=== PATIENT | female | born 1955 | race Caucasian/White ===

== ENCOUNTER 2018-03-11 13:51 | Emergency (ER) | payer OTHER, SELFPAY ==
[2018-03-11 13:59] VITALS: BP 163/105; PULSE 64; RESP 20; TEMP 35.5; O2SAT 96; BMI 25.8
--- NOTE | 2018-03-11 14:45 | ED_ITS ---
HPI - Abdominal Pain General Chief Complaint: Abdominal Pain Stated Complaint: abd and back pain Time Seen by Provider: 03/11/18 14:44 Source: patient Mode of arrival: ambulatory Limitations: no limitations History of Present Illness HPI narrative: Patient is a 62-year-old female here for evaluation generalized abdominal pain and back pain. Patient states she has chronic back pain but this back pain is different from her normal pain. Has had no change in bowel movements. Some nausea but no vomiting. Has have some dysuria. No fevers. Has had her gallbladder removed in the past but no other abdominal surgeries. Has been taking her home pain medication without relief. Related Data Home Medications Medication Instructions Recorded Confirmed LEVOTHYROXINE SODIUM (#LEVOTHROID #0 09/05/11 [place] [facility]) hydrocodone-acetaminophen #0 09/05/11 Previous Rx's Medication Instructions Recorded ondansetron 4 mg PO Q6-8H PRN #14 tab 03/11/18 Allergies Allergy/AdvReac Type Severity Reaction Status Date / Time ERYTHROMYCIN Allergy Unknown Uncoded 07/29/17 12:03 Review of Systems Constitutional Denies fever(s) and Denies headache(s) ENT Ears, Nose, Mouth, and Throat: Denies headache(s) Cardiovascular Denies chest pain and Denies dyspnea Respiratory Denies dyspnea Gastrointestinal Gastrointestinal: Reports abdominal pain, Denies change in bowel habits, Denies constipation, Denies diarrhea, Reports nausea and Denies vomiting Genitourinary Reports dysuria and Reports urinary urgency Musculoskeletal Denies myalgias and Denies arthralgias Integumentary/Breasts Denies lesions and Denies rash Neurologic Denies headache(s) Hematologic/Lymphatic Denies easy bleeding and Denies easy bruising FORMERLY [facility], [facility] Medical History Back pain (Acute) Hypothyroid (Acute) Surgical History History of cholecystectomy (Acute) Social History marital status: unknown Smoking Status: Former smoker Exam Initial Vital Signs Initial Vital Signs: Vital Signs Temperature 96 F L 03/11/18 13:59 Pulse Rate 64 03/11/18 13:59 Respiratory Rate 20 03/11/18 13:59 Blood Pressure 163/105 H 03/11/18 13:59 Pulse Oximetry 96 03/11/18 13:59 Const General: cooperative, healthy appearing, well developed, well groomed and No acute distress Orientation: alert, awake and oriented x3 HENMT Head: normal to inspection and normocephalic Resp Effort & Inspection: normal respiratory effort Auscultation: clear to auscultation bilaterally Cardio Rate: regular rate Rhythm: regular rhythm Pulses: radial pulses present GI Inspection: non-distended Palpation: soft, No firm, No guarding and tender Back/Spine/Pelvis Back: No CVA tenderness Thoracic/Lumbar Spine: No thoraco-lumbar spasm and No thoracic spinal tenderness Skin Lesions: no lesions Rashes: no rashes Neuro General: alert, awake and oriented x3 Extrem General: normal to inspection and capillary refill normal Psych Appearance: grossly normal and well kempt Affect: anxious affect Course Orders Ordered: ED Orders 03/11/18 15:02 CT abdomen pelvis w con Stat 03/11/18 15:15 Complete Blood Count AUTO DIFF Stat Comprehensive Metabolic Panel Stat Lipase Stat Discontinued Medications Hydromorphone HCl (Dilaudid) 1 mg IV NOW ONE Stop: 03/11/18 15:59 Last Admin: 03/11/18 16:11 Dose: 1 mg Sodium Chloride (Normal Saline 0.9%) 1,000 mls @ 1,000 mls/hr IV BOLUS ONE Stop: 03/11/18 16:00 Last Admin: 03/11/18 15:19 Dose: 1,000 mls/hr Morphine Sulfate (Morphine) 4 mg IV NOW ONE Stop: 03/11/18 15:02 Last Admin: 03/11/18 15:19 Dose: 4 mg Vital Signs - 8 hr 03/11/18 13:59 03/11/18 15:29 03/11/18 16:30 Temperature 96 F L Pulse Rate 64 60 67 Respiratory Rate 20 17 15 Blood Pressure 163/105 H Blood Pressure [Right Arm] 144/92 H 162/106 H Pulse Oximetry 96 96 97 MDM - Abdominal Pain Lab Data Attestation: I reviewed the patient's lab results. Result diagrams: 03/11/18 15:15 03/11/18 15:15 Lab Results 03/11/18 03/11/18 Range/Units 15:15 15:15 WBC 5.7 (4.5-11.0) X10^3/uL RBC 4.60 (4.0-5.2) X10^6/uL Hgb 14.1 (12.0-16.0) g/dL Hct 42.8 (36-46) % MCV 93.0 (80-100) fL MCH 30.8 (26-34) PG MCHC 33.1 (30-36) % RDW 13.3 (11.6-14.8) % Plt Count 254 (150-400) X10^3/uL Neut % (Auto) 61.1 (50-75) % Lymph % (Auto) 27.2 (25-40) % [place] % (Auto) 7.8 (3-14) % Eos % (Auto) 2.8 (2-4) % Baso % (Auto) 1.1 (0-2) % Neut # (Auto) 3500 (4112-8971) /uL Sodium 143 (137-145) mmol/L Potassium 4.1 (3.4-5.1) mmol/L Chloride 102 (98-107) mmol/L Carbon Dioxide 28 (22-32) mmol/L BUN 12 (7-17) mg/dL Creatinine 0.70 (0.52-1.04) mg/dL Estimated GFR > 60.0 (>60) mL/min BUN/Creatinine Ratio 17.1 (6-22) Glucose 97 (80-110) mg/dL Calcium 9.4 (8.4-10.2) mg/dL Total Bilirubin 0.6 (0.2-1.3) mg/dL AST 34 (14-36) IU/L ALT 29 (9-52) IU/L Alkaline Phosphatase 86 (38-126) U/L Total Protein 8.0 (6.3-8.2) g/dL Albumin 4.7 (3.5-5.0) g/dL Globulin 3.3 (1.7-4.1) g/dL Albumin/Globulin Ratio 1.4 (1.0-2.8) Lipase 113 (23-300) U/L Point of care testing: Urine Dip Bedside Urine Glucose Negative Bedside Urine Bilirubin - Negative Bedside Urine Ketone - Negative Urine Specific [place] 1.015 Bedside Urine pH 7.5 Bedside Urine Protein - Negative Bedside Urine Urobilinogen - Negative Bedside Urine Nitrite - Negative Bedside Urine Leukocytes - Negative Esterase Imaging Data CT scan - abdomen: Radiologist's impression: PROCEDURE: CT ABDOMEN PELVIS W CON INDICATIONS: Left-sided abdominal pain TECHNIQUE: After the administration of intravenous contrast, 5 mm thick sections acquired from the diaphragm to the symphysis. 5 mm coronal and sagittal reformats were acquired. For radiation dose reduction, the following was used: automated exposure control, adjustment of mA and/or kV according to patient size. COMPARISON: None. FINDINGS: Image quality: Excellent. ABDOMEN: Lung bases: Lung bases are clear. Heart size is normal. Solid organs: Liver is enlarged. There is mild steatosis Gallbladder has been removed. The common bile duct is prominent measuring 15 mm. No priors are available for comparison. A moderate diverticula is within the descending and sigmoid colon. Moderate stool is present. Pancreas enhances normally. Spleen is normal in size and enhancement. No adrenal nodules. Kidneys demonstrate normal size and enhancement, without hydronephrosis. Peritoneum and bowel: Bowel loops demonstrate normal wall thickness and caliber. No free fluid or air. Minimal fluid filled loops of small bowel. Nodes and vessels: No retroperitoneal or mesenteric adenopathy by size criteria. Aorta and inferior vena cava are normal in size. Miscellaneous: No ventral hernias. PELVIS: Genitourinary: Bladder wall thickness is normal. Miscellaneous: No inguinal hernias or adenopathy. Bones: No suspicious bony lesions. No vertebral body compression fractures. IMPRESSION: 1. Prominent colonic diverticula without associated inflammatory change. 2. Moderate stool without obstruction. 3. Minimal fluid filled loops of small bowel. This is overall nonspecific and could be related to enteritis. Dictated by: Mireya Good M.D. on 03/11/2018 at 17:20 Approved by: Mireya Good M.D. on 03/11/2018 at 17:25 MDM Narrative Medical decision making narrative: Labs unremarkable. Does not have an elevated white blood cell count. CT scan shows a nonspecific enteritis but no other surgical pathology. Urinalysis unremarkable. Low suspicion for renal stones, pyelonephritis, bowel obstruction, appendicitis, pancreatitis, AAA, or other intra-abdominal surgical pathology. No indication for antibiotics. Patient does have pain medication at home. Will send home with a prescription for Zofran to use as needed. She was given return precautions. She expressed understanding and agreement with plan. Discharge Plan Departure Patient Disposition: Home Clinical Impression: Abdominal pain, Enteritis Instructions: DI for Abdominal Pain-Adult Activity Restrictions/Additional Instructions: Continue all of your medications as directed. I would recommend you contact her primary care doctor's office to schedule a follow-up visit and to discuss the indications for referral to see Gastroenterology. You could potentially have diarrhea over the next couple days. If this happens make sure your increasing your fluid intake. Return to the emergency department for any new symptoms. Prescriptions: New ondansetron 4 mg tablet,disintegrating 4 mg PO Q6-8H PRN (Reason: nausea and vomiting) Qty: 14 RF: 0 No Action hydrocodone-acetaminophen 5 MG/325 MG tablet Qty: 0 RF: 0 LEVOTHYROXINE SODIUM (#LEVOTHROID [place]) Qty: 0 RF: 0
--- NOTE | 2018-03-11 15:02 | DI.CT.S_ITS ---
PROCEDURE: CT ABDOMEN PELVIS W CON INDICATIONS: Left-sided abdominal pain TECHNIQUE: After the administration of intravenous contrast, 5 mm thick sections acquired from the diaphragm to the symphysis. 5 mm coronal and sagittal reformats were acquired. For radiation dose reduction, the following was used: automated exposure control, adjustment of mA and/or kV according to patient size. COMPARISON: None. FINDINGS: Image quality: Excellent. ABDOMEN: Lung bases: Lung bases are clear. Heart size is normal. Solid organs: Liver is enlarged. There is mild steatosis Gallbladder has been removed. The common bile duct is prominent measuring 15 mm. No priors are available for comparison. A moderate diverticula is within the descending and sigmoid colon. Moderate stool is present. Pancreas enhances normally. Spleen is normal in size and enhancement. No adrenal nodules. Kidneys demonstrate normal size and enhancement, without hydronephrosis. Peritoneum and bowel: Bowel loops demonstrate normal wall thickness and caliber. No free fluid or air. Minimal fluid filled loops of small bowel. Nodes and vessels: No retroperitoneal or mesenteric adenopathy by size criteria. Aorta and inferior vena cava are normal in size. Miscellaneous: No ventral hernias. PELVIS: Genitourinary: Bladder wall thickness is normal. Miscellaneous: No inguinal hernias or adenopathy. Bones: No suspicious bony lesions. No vertebral body compression fractures. IMPRESSION: 1. Prominent colonic diverticula without associated inflammatory change. 2. Moderate stool without obstruction. 3. Minimal fluid filled loops of small bowel. This is overall nonspecific and could be related to enteritis. Dictated by: Mireya Good M.D. on 03/11/2018 at 17:20 Approved by: Mireya Good M.D. on 03/11/2018 at 17:25
[2018-03-11] MEDS: MORPHINE 4 MG/ML INJ IV (15:19)
[2018-03-11] MEDS: SODIUM CHLORIDE 0.9% 1,000 ML 1000 ML IV (15:19)
[2018-03-11 15:22] LABS: Add Manual Diff / Slide Review NO; Basophils Percent Auto 1.1 % (0-2); Eosinophils Percent Auto 2.8 % (2-4); Hematocrit 42.8 % (36-46); Hemoglobin 14.1 g/dL (12.0-16.0); Lymphocytes Percent Auto 27.2 % (25-40); Mean Corpuscular HGB Conc 33.1 % (30-36); Mean Corpuscular Hemoglobin 30.8 PG (26-34); Monocytes Percent Auto 7.8 % (3-14); Neutrophils Absolute Auto 3500 /uL (3000-5900); Neutrophils Percent Auto 61.1 % (50-75); Platelet Count 254 X10^3/uL (150-400); Red Cell Distribution Width 13.3 % (11.6-14.8); White Blood Cell Count 5.7 X10^3/uL (4.5-11.0)
[2018-03-11 15:29] VITALS: BP 144/92; PULSE 60; RESP 17; O2SAT 96
[2018-03-11 15:41] LABS: Alanine Aminotransferase 29 IU/L (9-52); Albumin 4.7 g/dL (3.5-5.0); Albumin Globulin Ratio 1.4 (1.0-2.8); Alkaline Phosphatase 86 U/L (38-126); Aspartate Aminotransferase 34 IU/L (14-36); BUN Creatinine Ratio 17.1 (6-22); Bilirubin Total 0.6 mg/dL (0.2-1.3); Blood Urea Nitrogen 12 mg/dL (7-17); Calcium 9.4 mg/dL (8.4-10.2); Carbon Dioxide 28 mmol/L (22-32); Chloride 102 mmol/L (98-107); Estimated Glomerular Filt Rate > 60.0 mL/min (>60); Globulin 3.3 g/dL (1.7-4.1); Glucose 97 mg/dL (80-110); HEMOLYSIS < 15 (0-50); Lipase 113 U/L (23-300); Potassium 4.1 mmol/L (3.4-5.1); Sodium 143 mmol/L (137-145)
[2018-03-11] MEDS: HYDROMORPHONE 1 MG INJ IV (16:11)
[2018-03-11 16:30] VITALS: BP 162/106; PULSE 67; RESP 15; O2SAT 97
[2018-03-11 17:56] VITALS: BP 134/75; PULSE 56; RESP 18
== END 2018-03-11 17:59 | disposition home or self-care (01) ==
PROVIDERS: Emergency Provider Emergency Medicine; PCP Physician Assistant
DX: K52.9 Noninfective gastroenteritis and colitis, unspecified (principal); R10.9 Unspecified abdominal pain
CPT/HCPCS: 36591; 74177; 80053; 81003; 83690; 85025; 96361; 96374; 96375; 99283; 99285; J1170; J2270; Q9967

== ENCOUNTER → 2018-09-10 09:10 | Outpatient (CLI) | payer OTHER, SELFPAY ==
--- NOTE | 2018-09-10 | DI.US.S_ITS ---
PROCEDURE: US PERIPH VENOUS LOW EXTREM BI INDICATIONS: ATHEROSCLEROSIS OF [place] ARTERIES OF EXTREMITIES TECHNIQUE: Real-time imaging, as well as color and pulse Doppler interrogation, were performed of the deep veins of both legs from the inguinal ligament to the popliteal fossa. COMPARISON: None. FINDINGS: Right: The common femoral, femoral and popliteal veins are normally compressible, and free of intraluminal thrombus. Color and pulse Doppler demonstrate normal phasic intravascular flow. There is normal augmentation response to distal compression maneuver. Left: The common femoral, femoral and popliteal veins are normally compressible, and free of intraluminal thrombus. Color and pulse Doppler demonstrate normal phasic intravascular flow. There is normal augmentation response to distal compression maneuver. IMPRESSION: No deep venous thrombosis in either lower extremity. Dictated by: Sonia Watson M.D. on 09/10/2018 at 11:49 Approved by: Sonia Watson M.D. on 09/10/2018 at 11:51
--- NOTE | 2018-09-10 | DI.US.S_ITS ---
PROCEDURE: US ARTERIAL DUPLEX LE BI INDICATIONS: ATHEROSCLEROSIS OF [place] ARTERIES OF EXTREMITIES TECHNIQUE: Color and pulse Doppler interrogation was performed of both lower extremity arterial systems, with image documentation. COMPARISON: None. FINDINGS: Right lower extremity: Common femoral artery: 113 cm/sec, with triphasic flow. Deep femoral artery: 95 cm/sec, with triphasic flow. Proximal superficial femoral artery: 89 cm/sec, with triphasic . Mid superficial femoral artery: 96 cm/sec, with triphasic flow. Distal superficial femoral artery: 70 cm/sec, with triphasic flow. Popliteal artery: 108 cm/sec, with triphasic flow. Posterior tibial artery: 87 cm/sec, with biphasic flow. Anterior tibial artery/dorsalis pedis: 71 cm/sec, with biphasic flow. [place]-scale imaging description: No focal arterial stenosis. Left lower extremity: Common femoral artery: 113 cm/sec, with triphasic flow. Deep femoral artery: 75 cm/sec, with triphasic flow. Proximal superficial femoral artery: 108 cm/sec, with triphasic flow. Mid superficial femoral artery: 98 cm/sec, with triphasic flow. Distal superficial femoral artery: 63 cm/sec, with triphasic flow. Popliteal artery: 81 cm/sec, with triphasic flow. Posterior tibial artery: 76 cm/sec, with biphasic flow. Anterior tibial artery/dorsalis pedis: 73 cm/sec, with biphasic flow. [place]-scale imaging description: No focal arterial stenosis. IMPRESSION: No hemodynamically significant focal arterial stenosis visualized were applied. Adequate arterial flow to both lower cavities. Dictated by: Sonia Watson M.D. on 09/10/2018 at 11:51 Approved by: Sonia Watson M.D. on 09/10/2018 at 11:55
== END ==
PROVIDERS: PCP Physician Assistant; Visit Provider Physician Assistant Medical
DX: I70.213 Atherosclerosis of native arteries of extremities with intermittent claudication, bilateral legs (principal); I10 Essential (primary) hypertension; Z87.891 Personal history of nicotine dependence
CPT/HCPCS: 93925; 93970

== ENCOUNTER → 2018-11-04 19:39 | Outpatient (CLI) | payer OTHER, SELFPAY ==
--- NOTE | 2018-11-04 19:42 | DI.MRI.S_ITS ---
PROCEDURE: MR KNEE LT WO CON INDICATIONS: LEFT KNEE PAIN TECHNIQUE: Noncontrast sagittal PD fast spin echo and T2 fast spin echo with fat saturation, sagittal 3-D FLASH with fat saturation; coronal T1 spin echo and PD fast spin echo with fat saturation, and axial PD fast spin echo with fat saturation through the knee. COMPARISON: None. FINDINGS: Image quality: Excellent. Menisci: The medial and lateral menisci demonstrate normal morphology and internal signal. The meniscal root ligaments appear intact. Cruciate ligaments: The anterior and posterior cruciate ligaments appear intact. Medial structures: The medial collateral ligament appears intact. The posterior oblique ligament, semimembranosus tendon insertions, oblique popliteal ligament, and meniscocapsular junction appear intact. Visualized portions of the pes anserinus tendons appear normal. No abnormal bursal fluid. Lateral structures: The lateral collateral ligament, long and short heads of the biceps femoris tendon appear intact. The popliteus tendon appears normal; the popliteofibular ligament appears intact. The posterosuperior and anteroinferior popliteomeniscal fascicles appear intact. The arcuate and fabellofibular ligaments appear intact, on either side of the lateral inferior geniculate artery. Iliotibial band appears normal. Anterior structures: The quadriceps and patellar tendons appear intact. Patellar alignment is normal. No femoral trochlear dysplasia or ventral trochlear prominence. No edema in the infrapatellar fat pad. Bones and cartilage: Mild to moderate tricompartmental osteoarthritis is seen more prominent in patellofemoral compartment. Chondromalacia involving apex and lateral facet of patella cartilage is seen with suggestion of small osteochondral lesions involving lateral portion of posterior patella.. No marrow edema. No fracture or dislocation. Joint space: There is small to moderate amount of joint fluid. 2.1 x 1.4 x 2.8 cm popliteal cyst is seen. Normal appearing synovial plicae are incidentally noted. IMPRESSION: 1. No evidence of focal meniscal tear. Cruciate ligaments are intact. 2. 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 3. Small to moderate amount of joint effusion a small popliteal cyst as above. No gross loose body. Dictated by: José Miguel Us M.D. on 11/05/2018 at 9:52 Approved by: José Miguel Us M.D. on 11/05/2018 at 10:02
== END ==
PROVIDERS: PCP Physician Assistant; Visit Provider Physician Assistant Medical
DX: M25.562 Pain in left knee (principal); M17.12 Unilateral primary osteoarthritis, left knee; M22.42 Chondromalacia patellae, left knee; M25.462 Effusion, left knee; M71.22 Synovial cyst of popliteal space [Baker], left knee
CPT/HCPCS: 73721

== ENCOUNTER 2018-12-17 13:47 | Emergency (ER) | payer OTHER, SELFPAY ==
[2018-12-17 14:14] VITALS: BP 182/104; PULSE 76; RESP 18; TEMP 36.8; O2SAT 95; BMI 27.1
[2018-12-17 14:54] LABS: Add Manual Diff / Slide Review NO; Basophils Absolute Auto 100 /uL (0-100); Lymphocytes Absolute Auto 1300 /uL (1100-4500); Monocytes Absolute Auto 500 /uL (0-900); Neutrophils Absolute Auto 4800 /uL (1500-7000)
[2018-12-17 15:10] LABS: Alanine Aminotransferase 11 IU/L (9-52); Albumin 4.7 g/dL (3.5-5.0); Albumin Globulin Ratio 1.2 (1.0-2.8); Alkaline Phosphatase 89 U/L (38-126); Aspartate Aminotransferase 29 IU/L (14-36); Bilirubin Total 0.4 mg/dL (0.2-1.3); Blood Urea Nitrogen 21 mg/dL (7-17); Calcium 9.6 mg/dL (8.4-10.2); Carbon Dioxide 24 mmol/L (22-32); Chloride 107 mmol/L (98-107); Creatine Kinase 124 U/L (30-135); Estimated Glomerular Filt Rate > 60.0 mL/min (>60); Globulin 3.8 g/dL (1.7-4.1); Glucose 110 mg/dL (80-110); HEMOLYSIS < 15 (0-50); Lipase 249 U/L (23-300); Potassium 4.4 mmol/L (3.4-5.1); Sodium 141 mmol/L (137-145); Total Protein 8.5 g/dL (6.3-8.2)
[2018-12-17 15:22] LABS: Troponin I < 0.012 ng/mL (0.01-0.034)
[2018-12-17 15:23] VITALS: BP 160/100; PULSE 66; RESP 17; O2SAT 98
[2018-12-17 15:26] LABS: CKMB % Relative Index 1.4 % (1.5-5.0); Creatine Kinase MB 1.71 ng/mL (<2.37)
[2018-12-17] MEDS: ACETAMINOPHEN 325 MG TABLET 975 MG PO (15:42)
[2018-12-17 15:46] LABS: Basophils Percent Auto 1.2 % (0-2); Eosinophils Absolute Auto 300 /uL (0-450); Eosinophils Percent Auto 3.6 % (2-4); Hematocrit 44.9 % (36-46); Hemoglobin 15.2 g/dL (12.0-16.0); Lymphocytes Percent Auto 18.9 % (25-40); Mean Corpuscular HGB Conc 33.8 % (30-36); Mean Corpuscular Hemoglobin 30.5 PG (26-34); Mean Corpuscular Volume 90.3 fL (80-100); Monocytes Percent Auto 7.5 % (3-14); Neutrophils Percent Auto 68.8 % (50-75); Platelet Count 296 X10^3/uL (150-400); Red Blood Cell Count 4.97 X10^6/uL (4.0-5.2); Red Cell Distribution Width 14.2 % (11.6-14.8)
[2018-12-17 15:54] LABS: Thyroid Stimulating Hormone 0.15 uIU/mL (0.47-4.68)
[2018-12-17 16:30] VITALS: BP 137/89; PULSE 69; RESP 18; O2SAT 94
--- NOTE | 2018-12-17 16:30 | ED_ITS ---
HPI - General Adult General Chief complaint: Hypertension Stated complaint: High Blood Pressure Time Seen by Provider: 12/17/18 14:45 Source: patient Mode of arrival: ambulatory Limitations: no limitations History of Present Illness HPI narrative: Patient comes emergency department complaining of headache and an adequate blood pressure control at home. She states that she was stable on amlodipine per years, but then her primary care provider moved on, and she was assigned a new provider. She states that provider changed her to clonidine, which seem to be working reasonably well, but when she went and saw a physician, rather than the PA who had been treating her, he stated that clonidine was not a good choice and took her off the clonidine. Patient states that she was then changed to lisinopril, which does not seem to be controlling her blood pressure quite as well. Patient states her systolics are in the 150s to 160s sometimes, and it is making her concerned. She states she is taking lisinopril 20 mg once a day, and has been on this for about 2 weeks. She states that she is scheduled to see Dr. Tinoco, the physician who took her off of the clonidine, on December 30. Patient denies chest pain or shortness of breath. No stroke- like symptoms. No nausea or vomiting. No other complaints at this time. Related Data Home Medications Medication Instructions Recorded Confirmed hydrocodone-acetaminophen 1 tab PO Q4H PRN #0 09/05/11 12/17/18 Calcium Lvi-Sno-Flik 2 tab PO QPM 12/17/18 12/17/18 Probiotic 1 cap PO QPM 12/17/18 12/17/18 apple cider vinegar 2,400 mg PO QPM 12/17/18 12/17/18 cyclosporine [Restasis] 1 drp OPHTHALMIC (EYE) Q12H 12/17/18 12/17/18 gabapentin 300 mg PO QPM 12/17/18 12/17/18 levothyroxine 12.5 mcg PO QPM 12/17/18 12/17/18 levothyroxine 175 mcg PO QPM 12/17/18 12/17/18 lisinopril 20 mg PO QPM 12/17/18 12/17/18 magnesium oxide 400 mg PO QPM 12/17/18 12/17/18 sertraline 100 mg PO QPM 08/30/19 08/30/19 tretinoin microspheres [Retin-A 1 applic TOPICAL DIRECTED 12/17/18 12/17/18 Micro Pump] Allergies Allergy/AdvReac Type Severity Reaction Status Date / Time erythromycin base Allergy Verified 12/17/18 14:14 Review of Systems Constitutional Constitutional: Denies chills, Denies fatigue, Denies fever(s), Denies frequent falls, Reports headache(s), Denies lethargy and Denies weakness Comments: High blood pressure Eyes Eyes: Denies change in vision, Denies eye discharge, Denies irritation and Denis es loss of vision ENT Ears, Nose, Mouth, and Throat: Denies change in voice, Denies dizziness, Reports headache(s), Denies neck pain, Denies sore throat and Denies throat swelling Cardiovascular Cardiovascular: Denies chest pain, Denies irregular heart rhythm, Denies lighth eadedness, Denies palpitations, Denies dyspnea, Denies dyspnea on exertion and Denies orthopnea Respiratory Respiratory: Denies cough, Denies dyspnea, Denies dyspnea on exertion and Denies wheezing Gastrointestinal Gastrointestinal: Denies abdominal pain, Denies change in bowel habits, Denies diarrhea, Denies nausea and Denies vomiting Genitourinary Genitourinary: Denies hematuria, Denies flank pain, Denies urinary incontinence and Denies urinary urgency Musculoskeletal Musculoskeletal: Denies back pain, Denies muscle weakness, Denies neck pain, Denies numbness and Denies tingling Integumentary/Breasts Skin/Breast: Denies pruritus, Denies erythema, Denies rash and Denies wounds Neurologic Neurologic: Denies behavioral changes, Denies confusion, Denies dizziness, Denies frequent falls, Reports headache(s), Denies loss of vision, Denies numbness, Denies tingling and Denies weakness Psychiatric Psychiatric: Denies anxiety, Denies behavioral changes, Denies confusion, Denies depression, Denies homicidal ideation and Denies suicidal ideation Endocrine Endocrine: Denies fatigue, Denies flushing and Denies palpitations Hematologic/Lymphatic Hematologic/Lymphatic: Denies easy bruising Allergic/Immunologic Allergic/Immunologic: Denies urticaria, Denies throat swelling and Denies wheezing PFSH Surgical History History of cholecystectomy (Acute) Social History (Updated 03/11/18 @ 17:03 by José Miguel Meek DO) marital status: unknown Smoking Status: Former smoker Social History marital status: unknown Smoking Status: Former smoker Exam Initial Vital Signs Initial Vital Signs: Vital Signs Temperature 98.2 F 12/17/18 14:14 Pulse Rate 76 12/17/18 14:14 Respiratory Rate 18 12/17/18 14:14 Blood Pressure 182/104 H 12/17/18 14:14 Pulse Oximetry 95 12/17/18 14:14 Const General: cooperative and well developed Nutritional Appearance: well nourished Orientation: alert, awake, oriented x3 and not confused [facility] Head: normocephalic and atraumatic Ears: external ears normal Nose: external nose normal and No nasal discharge Face and sinus: face symmetric and No dry mucous membranes Mouth: oral mucosae normal and moist mucous membranes Teeth and gingiva: dentition normal Eyes General: appearance normal, both eyes and all related structures Eyelids: eyelids normal Conjunctivae: conjunctivae normal Sclera: sclerae normal Pupils: PERRL EOM: EOM intact bilaterally Neck Neck: normal visual inspection, trachea midline, No lymphadenopathy, No midline deformity and No JVD Lymphatic: No lymphedema Chest Chest: normal inspection of the chest Resp Effort & Inspection: normal respiratory effort, able to speak in complete sentences, no respiratory distress and no use of accessory muscles Auscultation: clear to auscultation bilaterally, no rales, no rhonchi and no wheezes Cardio Rate: regular rate Rhythm: regular rhythm Heart Sounds: no click, no gallops, no murmurs and no rubs Pulses: normal peripheral pulses GI Inspection: non-distended Palpation: soft, no hepatosplenomegaly, No guarding, No pulsatile mass and No tender Auscultation: normal bowel sounds Back/Spine/Pelvis Back: No CVA tenderness Cervical Spine: cervical ROM normal and No pain with cervical ROM Thoracic/Lumbar Spine: thoracic and lumbar spine normal to inspection Skin General: no rashes or lesions noted, No jaundice and No petechiae Neuro General: alert, oriented x3, gait normal and no focal motor deficits Speech: speech normal Extrem General: full ROM, no clubbing, cyanosis or edema, no pedal edema and no calf tenderness Psych Appearance: well kempt Mental Status: mental status grossly normal Attitude: cooperative Thought Content: normal and suicidality Judgment: judgment good Course Course Course Narrative: Patient was found to have blood pressures in the 130s/80s while in the emergency department while I was examining her after presenting initially with much higher blood pressures at 182/104 and 160/100. I did discuss with the patient that she most likely needs to have her lisinopril dose increased, and that we will plan to double this from 20 to 40 mg. I also discuss ed with the patient that we will give her IV fluids and some Toradol for her headache. The patient was found to be feeling much better after fluids and Toradol. Her blood pressure remained reasonable throughout her stay in the emergency department. I have given her an extra dose of her lisinopril tonight, and she should double the lisinopril, as we discussed. Patient will follow up with her primary care physician. We have discussed the usual indications for return. Orders Ordered: ED Orders 12/17/18 14:16 Complete Blood Count AUTO DIFF Stat Comprehensive Metabolic Panel Stat Lipase Stat TSH [Thyroid Stimulating Hormone] Stat Troponin & CK Cardiac Panel Stat 12/17/18 14:38 EKG-12 Lead Stat Discontinued Medications Acetaminophen (Tylenol) 975 mg PO NOW ONE Stop: 12/17/18 15:38 Last Admin: 12/17/18 15:42 Dose: 975 mg Documented by: VALERY Sodium Chloride (Normal Saline 0.9%) 1,000 mls @ 1,000 mls/hr IV BOLUS ONE Stop: 12/17/18 17:16 Last Infusion: 12/17/18 18:20 Dose: 0 mls/hr Documented by: Admin: 12/17/18 16:51 Dose: 1,000 mls/hr Documented by: VALERY Ketorolac Tromethamine (Toradol) 30 mg IV NOW ONE Stop: 12/17/18 16:23 Last Admin: 12/17/18 16:52 Dose: 30 mg Documented by: VALERY Lisinopril (Zestril) 20 mg PO NOW ONE Stop: 12/17/18 17:24 Last Admin: 12/17/18 17:52 Dose: 20 mg Documented by: VALERY Vital Signs Vital signs: Vital Signs - 8 hr 12/17/18 14:14 12/17/18 15:23 12/17/18 16:30 Temperature 98.2 F Pulse Rate 76 66 69 Respiratory Rate 18 17 18 Blood Pressure 182/104 H Blood Pressure [Right Arm] 160/100 H 137/89 Pulse Oximetry 95 98 94 12/17/18 17:18 12/17/18 17:52 12/17/18 18:00 Temperature Pulse Rate 72 68 73 Respiratory Rate 17 18 Blood Pressure 165/90 H Blood Pressure [Right Arm] 162/92 H 154/90 H Pulse Oximetry 97 98 Medical Decision Making Medical Records Medical records reviewed: Yes I reviewed the patient's medical records. Lab Data Lab results reviewed: Yes I reviewed the patient's lab results. Result diagrams: 12/17/18 14:16 12/17/18 14:16 Labs: Lab Results 12/17/18 12/17/18 12/17/18 Range/Units 14:16 14:16 14:16 WBC 7.0 (4.5-11.0) X10^3/uL RBC 4.97 (4.0-5.2) X10^6/uL Hgb 15.2 (12.0-16.0) g/dL Hct 44.9 (36-46) % MCV 90.3 (80-100) fL MCH 30.5 (26-34) PG MCHC 33.8 (30-36) % RDW 14.2 (11.6-14.8) % Plt Count 296 (150-400) X10^3/uL Neut % (Auto) 68.8 (50-75) % Lymph % (Auto) 18.9 L (25-40) % Rusk % (Auto) 7.5 (3-14) % Eos % (Auto) 3.6 (2-4) % Baso % (Auto) 1.2 (0-2) % Neut # (Auto) 4800 (5376-8772) /uL Lymph # (Auto) 1300 (5108-7185) /uL Rusk # (Auto) 500 (0-900) /uL Eos # (Auto) 300 (0-450) /uL Baso # (Auto) 100 (0-100) /uL Sodium 141 (137-145) mmol/L Potassium 4.4 (3.4-5.1) mmol/L Chloride 107 (98-107) mmol/L Carbon Dioxide 24 (22-32) mmol/L BUN 21 H (7-17) mg/dL Creatinine 0.60 (0.52-1.04) mg/dL Estimated GFR > 60.0 (>60) mL/min BUN/Creatinine Ratio 35.0 H (6-22) Glucose 110 (80-110) mg/dL Calcium 9.6 (8.4-10.2) mg/dL Total Bilirubin 0.4 (0.2-1.3) mg/dL AST 29 (14-36) IU/L ALT 11 (9-52) IU/L Alkaline Phosphatase 89 (38-126) U/L Total Creatine Kinase 124 (30-135) U/L CK-MB (CK-2) 1.71 (<2.37) ng/mL CK-MB (CK-2) Rel Index 1.4 L (1.5-5.0) % Troponin I < 0.012 (0.01-0.034) ng/mL Total Protein 8.5 H (6.3-8.2) g/dL Albumin 4.7 (3.5-5.0) g/dL Globulin 3.8 (1.7-4.1) g/dL Albumin/Globulin Ratio 1.2 (1.0-2.8) Lipase 249 (23-300) U/L TSH 0.15 L (0.47-4.68) uIU/mL ECG Data Attestation: I personally reviewed and interpreted this ECG as follows: (See below) Interpretation: Twelve lead EKG performed December 17, 2018 at 2:31 p.m., as follows: Regular ventricular rhythm with a rate of 68 beats per minute MT interval 135 millisecond QRS duration 89 milliseconds QTC interval 427 millisecond No ectopy No significant ST T wave changes Interpretation: Normal sinus rhythm; possible left atrial enlargement; no signs of acute ischemia; borderline EKG as interpreted by ED MD. Discharge Plan Departure Patient Disposition: Home Clinical Impression: HTN (hypertension) Qualifiers: Hypertension type: essential hypertension Qualified Code(s): I10 - Essential (primary) hypertension Headache Qualifiers: Headache type: tension-type Headache chronicity pattern: acute headache Intractability: not intractable Qualified Code(s): G44.209 - Tension-type headache, unspecified, not intractable Discharge Date/Time: 12/17/18 18:26 Instructions: DI for High Blood Pressure Activity Restrictions/Additional Instructions: Please increase her lisinopril to 40 mg a day instead of 20. If he began to feel very lightheaded with this, then you may take an extra half pill instead of an extra whole pill. Please continue your plans to follow up with Dr. Santillan on December 30. Female physicians in [place] are listed below, as well. Prescriptions: No Action hydrocodone-acetaminophen 5 MG/325 MG tablet 1 tab PO Q4H PRN (Reason: pain) Qty: 0 RF: 0 levothyroxine 175 mcg tablet 175 mcg PO QPM RF: 0 lisinopril 20 mg tablet 20 mg PO QPM RF: 0 sertraline 100 mg tablet 100 mg PO QPM RF: 0 levothyroxine 25 mcg tablet 12.5 mcg PO QPM RF: 0 gabapentin 300 mg capsule 300 mg PO QPM RF: 0 Restasis 0.05 % dropperette 1 drp OPHTHALMIC (EYE) Q12H RF: 0 Retin-A Micro Pump 0.06 % gel with pump 1 applic TOPICAL DIRECTED RF: 0 magnesium oxide 400 mg magnesium Tablet 400 mg PO QPM RF: 0 Calcium Gjc-Eer-Yfog 2 tab PO QPM RF: 0 Probiotic 1 cap PO QPM RF: 0 apple cider vinegar 1,200 mg 2,400 mg PO QPM RF: 0 Referrals: Alva Strickland MD [Physician] - Freda Khan MD [Physician] - Marine Jennings [Primary Care Provider] - Lina Mckay DO [Physician] -
[2018-12-17] MEDS: SODIUM CHLORIDE 0.9% 1,000 ML 1000 ML IV (16:51)
[2018-12-17] MEDS: KETOROLAC 60 MG/2 ML VIAL 30 MG IV (16:52)
[2018-12-17 17:18] VITALS: BP 162/92; PULSE 72; RESP 17; O2SAT 97
[2018-12-17 17:52] VITALS: BP 165/90; PULSE 68
[2018-12-17] MEDS: LISINOPRIL 20 MG TABLET PO (17:52)
[2018-12-17 18:00] VITALS: BP 154/90; PULSE 73; RESP 18; O2SAT 98
== END 2018-12-17 18:26 | disposition home or self-care (01) ==
PROVIDERS: Emergency Provider Emergency Medicine; PCP Physician Assistant Medical
DX: I10 Essential (primary) hypertension (principal); G44.209 Tension-type headache, unspecified, not intractable
CPT/HCPCS: 36591; 80053; 82550; 82553; 83690; 84443; 84484; 85025; 93005; 96361; 96374; 99283; 99284; J1885

== ENCOUNTER → 2019-11-26 11:41 | Outpatient (CLI) | payer MEDICARE, OTHER, SELFPAY ==
[2019-11-27 17:05] LABS: COVID19 Sendout Not Detected (Not Detect)
== END ==
PROVIDERS: PCP Physician Assistant Medical; Visit Provider Physician Assistant
DX: Z11.59 Encounter for screening for other viral diseases (principal)
CPT/HCPCS: 87635

== ENCOUNTER 2019-11-29 06:18 | Day surgery (SDC) | payer MEDICARE, OTHER, SELFPAY ==
[2019-11-25 09:04] VITALS: BMI 24.5
[2019-11-29] VITALS (23 sets, daily range): BP systolic 120–156; BP diastolic 65–86; PULSE 60–93; RESP 12–22; TEMP 36.5–37.1; O2SAT 91–99; BMI 27.6
--- NOTE | 2019-11-29 | DI.RAD.S_ITS ---
PROCEDURE: XR LUMBAR SPINE 1V INDICATIONS: l34/l45 laminectomy TECHNIQUE: 1 views of the lumbar spine were acquired. COMPARISON: [facility] GLEN Chiu, XR LUMBAR SPINE FLEXION EXTENSION, 10/28/2019, 10:32. FINDINGS: Intraoperative localizer posterior to the L4-L5 disc. IMPRESSION: Intraoperative localizer posterior to the L4-L5 disc. Dictated by: Jessica Gonzáles MD, PhD on 11/29/2019 at 16:40 Approved by: Jessica Gonzáles MD, PhD on 11/29/2019 at 16:49
--- NOTE | 2019-11-29 07:05 | PM.PREOP ---
Pre-operative Note COVID-19 COVID-19 status: Negative Result date/Date tested (Pos, Neg/Pending): 11/26/19 Interval Note History & Physical reviewed/Exam performed by Physician: Yes Changes to H&P: No
[2019-11-29] MEDS: CEFAZOLIN 2 GM/100 ML FROZ.PIGGY IV ×3 (07:45→23:55)
[2019-11-29] MEDS: THROMBIN (RECOMBINANT) 5,000 UNIT VIAL 5000 UNIT TOP (08:12)
[2019-11-29] MEDS: SODIUM CHLORIDE 0.9% 1,000 ML, GENTAMICIN 80 MG IRR (08:12)
[2019-11-29] MEDS: BUPIVACAINE 0.25% (PF) 8 ML, fentaNYL 100 MCG INJ (08:13)
--- NOTE | 2019-11-29 08:16 | SUR.OPER ---
Prone on spine table, head in foam head support, padded chest and pelvic supports, gel pad at knees, lower legs supported by pillows; nipples, genitalia and toes free of pressure, arms secured on foam padded arm boards at <90 degrees abduction. Tape over blanket at thigh secured to table.
--- NOTE | 2019-11-29 09:21 | PM.OP.1 ---
Operative Date/Time/Diagnoses Date of procedure: 11/29/19 Time of procedure: 09:21 Pre-op diagnosis: Lumbar stenosis with radiculopathy Post-op diagnosis: same Procedure & Clinicians Procedure: L3-4, L4-5 laminectomy Use of microscope Placement of epidural catheter Same procedure as scheduled: Yes Indications: [age] year old female with intractable pain from stenosis. They had failed conservative management and requested operative intervention. Risks and benefits of surgery were discussed and appropriate consents were obtained. Surgeon: Jonel Begum Shrimp Peeling Machine Operator: Patrica Leiva Anesthesia Type: General Operative Notes Findings: None Closure Type: primary Specimen(s): none sent Estimated Blood Loss (mL): 10 Procedure in detail: Patient was brought to the operating room and intubated on the table. A time-out was performed. There were rolled over the well-padded prone position on the Bernardino table. The back was prepped and draped in standard sterile fashion. Preoperative antibiotics were given. Using fluoroscopy, a 4 cm incision was made to the left of the midline at the L4-5 level. We used Bovie to come down to and split the fascia. We then used the [employer] MaXcess dilators with fluoroscopy and then opened our retractors. The soft tissue was cleared off with Bovie, a marker was placed, an x-ray was taken to confirm positioning. We then brought in the microscope. A combination of high-speed bur and Kerrison were used to perform a laminectomy at L4-5. We carefully depressed the dura and reach across the other side to decompress the full central canal. The neural foramen were cleared out. We then moved the retractor up to the L3-4 level. We cleared off the soft tissue. The performed a laminectomy at L3-4. Again we carefully depressed the dura to clear out the central canal. The neural foramina cleared out. In the end a ball probe could be run cephalad and caudally and out to the foramen everything was open. The wound was copiously irrigated. An epidural catheter was filled with 100 mcg of fentanyl and 8 mL of 0.25% Marcaine. The dura was carefully depressed under the laminotomy site and the catheter was advanced 6 cm cephalad. The retractor was removed and the fascia was closed. The epidural catheter was then injected without resistance and removed. Superficial and skin were closed. Sterile dressing was placed. The patient was then rolled over, transferred to the stretcher, and brought to recovery room without complications. Complications: none Post-operative Condition: stable Disposition: PACU Plan for aftercare: Overnight admission. Up with physical therapy.
[2019-11-29] MEDS: fentaNYL 100 MCG/2 ML INJ IV (10:05)
[2019-11-29] MEDS: ONDANSETRON 4 MG/2 ML INJ IV ×2 (10:11→11:17)
[2019-11-29] MEDS: OXYCODONE IR 5 MG TABLET 10 MG PO (10:12)
--- NOTE | 2019-11-29 11:07 | SUR.PHASEI ---
Patient c/o chest heaviness and difficult to breath. EKG and cardiac panel ordered per Dr Seymour.
[2019-11-29 11:16] LABS: Creatine Kinase 321 U/L (30-135)
--- NOTE | 2019-11-29 11:20 | SUR.PHASEI ---
Gave patient 2 dose of IV antiemetic for c/o nausea.
[2019-11-29 11:29] LABS: Troponin I < 0.012 ng/mL (0.01-0.034)
[2019-11-29 11:32] LABS: CKMB % Relative Index 1.9 % (1.5-5.0); Creatine Kinase MB 6.05 ng/mL (<2.37)
--- NOTE | 2019-11-29 11:51 | SUR.PHASEI ---
Patient states pain and nausea has gotten better.
--- NOTE | 2019-11-29 12:06 | SUR.PHASEI ---
Received new order for metoclopramide and Ativan iv for cont c/o nausea.
[2019-11-29] MEDS: METOCLOPRAMIDE 10 MG/2 ML INJ IV (12:17)
--- NOTE | 2019-11-29 12:50 | SUR.PHASEI ---
Report given and patient transferred to floor. Pt rates pain and nausea at 3 and is tolerable. Notified nurse Dr Seymour requesting tele.
[2019-11-29] MEDS: LACTATED RINGERS 1,000 ML 125 ML IV ×2 (12:58→21:17)
--- NOTE | 2019-11-29 13:32 | PC.NURSE ---
Patient drowsy but easily arousable. Rates back pain 3/10. Denies chesp pain and pressure at this time, no nausea. Dressing to back CDI, CMS+, scd's on and tele placed. Patient oriented to room and call light. Bed alarm on.
--- NOTE | 2019-11-29 15:37 | PM.PNPO.1 ---
Subjective Subjective Date Patient Seen: 11/29/19 Time Patient Seen: 15:37 Interval history: She is having appropriate postoperative pain across her back. Legs are good. No more chest pain like she had had in the recovery room. No shortness of breath or difficulty breathing. Exam Vital Signs (past 8 hours): - 11/29/19 09:40 11/29/19 09:49 11/29/19 09:59 Temperature 97.7 F Pulse Rate 82 82 79 Respiratory Rate 17 16 17 Blood Pressure 126/69 125/70 137/84 Pulse Oximetry 98 98 94 11/29/19 10:09 11/29/19 10:19 11/29/19 10:39 Temperature Pulse Rate 80 79 85 Respiratory Rate 17 14 13 Blood Pressure 135/82 144/77 H 136/82 Pulse Oximetry 96 95 95 11/29/19 10:40 11/29/19 10:49 11/29/19 10:54 Temperature Pulse Rate 84 83 80 Respiratory Rate 19 12 16 Blood Pressure 156/75 H 151/79 H Pulse Oximetry 91 91 91 11/29/19 10:59 11/29/19 11:09 11/29/19 11:19 Temperature 98.5 F Pulse Rate 81 82 82 Respiratory Rate 13 22 17 Blood Pressure 145/77 H 151/75 H 149/77 H Pulse Oximetry 94 94 96 11/29/19 11:29 11/29/19 11:39 11/29/19 11:59 Temperature Pulse Rate 93 H 91 H 79 Respiratory Rate 14 20 18 Blood Pressure 132/67 132/67 143/65 H Pulse Oximetry 98 98 94 11/29/19 12:29 11/29/19 12:40 11/29/19 13:10 Temperature 98.5 F 98.6 F Pulse Rate 80 80 74 Respiratory Rate 12 15 15 Blood Pressure 130/70 132/74 123/72 Pulse Oximetry 94 96 94 11/29/19 13:57 Temperature 98.8 F Pulse Rate 71 Respiratory Rate 16 Blood Pressure 121/71 Pulse Oximetry 93 Oxygen Delivery Method Nasal Cannula Oxygen Flow Rate 2 Const Orientation: alert and oriented x3 Back/Spine/Pelvis Other: 5/5 bilateral lower extremities Objective Labs Labs: Laboratory Results - last 24 hr 11/29/19 11:00 Total Creatine Kinase 321 H CK-MB (CK-2) 6.05 H CK-MB (CK-2) Rel Index 1.9 Troponin I < 0.012 Assessment & Plan Post-op Postoperative Procedures: Procedures Operation Date: 11/29/19 07:45 Actual Procedures Side Surgeon p L34, L45 Laminectomies Jonel Begum MD Her recovery room me kg was normal and her troponin is normal. We will check 1 more set of enzymes to make sure this is fine. Quality VTE Deep Vein Thrombosis/Pulmonary Embolism Present on Admission: Yes
[2019-11-29] MEDS: HYDROCODONE/ACET 5/325 TABLET 2 TAB PO ×3 (15:40→23:55)
[2019-11-29] MEDS: HYDROMORPHONE 0.5 MG INJ IV (15:55)
[2019-11-29] MEDS: LACTOBACILLUS ACIDOPHILUS TABLET 1 EACH PO (16:50)
[2019-11-29] MEDS: GABAPENTIN 600 MG TABLET 1200 MG PO (16:50)
[2019-11-29] MEDS: MAGNESIUM OXIDE 400 MG TABLET PO (16:50)
[2019-11-29] MEDS: SENNOSIDES 8.6 MG TABLET 17.2 MG PO (20:04)
[2019-11-29] MEDS: lisinopriL 20 MG TABLET 40 MG PO (20:05)
[2019-11-29] MEDS: DOCUSATE 100 MG CAPSULE PO (20:06)
[2019-11-29] MEDS: AMLODIPINE 5 MG TABLET PO (20:06)
[2019-11-29] MEDS: SODIUM CHLORIDE 0.9% FLUSH 10 ML IV (20:07)
[2019-11-29] MEDS: LEVOTHYROXINE 88 MCG TABLET 176 MCG PO (20:14)
[2019-11-29 20:19] LABS: Creatine Kinase 439 U/L (30-135)
[2019-11-29 20:32] LABS: Troponin I < 0.012 ng/mL (0.01-0.034)
[2019-11-29 20:35] LABS: CKMB % Relative Index 1.5 % (1.5-5.0); Creatine Kinase MB 6.56 ng/mL (<2.37)
[2019-11-30] VITALS (8 sets, daily range): BP systolic 94–119; BP diastolic 56–67; PULSE 54–64; RESP 14–18; TEMP 36.2–36.8; O2SAT 93–97
[2019-11-30] MEDS: HYDROCODONE/ACET 5/325 TABLET 2 TAB PO ×5 (03:52→21:40)
[2019-11-30 06:00] LABS: Hematocrit 32.9 % (36-46); Hemoglobin 11.2 g/dL (12.0-16.0)
--- NOTE | 2019-11-30 07:59 | PM.PNPO.1 ---
Subjective Subjective Date Patient Seen: 11/30/19 Time Patient Seen: 07:59 Interval history: She is doing well. No chest pain. Pain is under good control. She has been up and walking to the bathroom with assistance. Exam Vital Signs (past 8 hours): - 11/30/19 00:14 11/30/19 04:00 Temperature 97.9 F 97.2 F L Pulse Rate 64 62 Respiratory Rate 18 18 Blood Pressure 119/67 113/67 Pulse Oximetry 97 97 Oxygen Delivery Method Nasal Cannula Oxygen Flow Rate 0 Const Orientation: alert and oriented x3 Back/Spine/Pelvis Other: CDI. 5/5 motor both lower extremities Objective Labs Result Diagrams: 11/30/19 05:36 Labs: Laboratory Results - last 24 hr 11/29/19 11/29/19 11/30/19 11:00 19:56 05:36 Hgb 11.2 L Hct 32.9 L Total Creatine Kinase 321 H 439 H CK-MB (CK-2) 6.05 H 6.56 H CK-MB (CK-2) Rel Index 1.9 1.5 Troponin I < 0.012 < 0.012 Assessment & Plan Post-op Postoperative Procedures: Procedures Operation Date: 11/29/19 07:45 Actual Procedures Side Surgeon p L34, L45 Laminectomies Jonel Begum MD she is doing well. Mobilize with therapy. If she is doing well, possible discharge later on today. Quality VTE Deep Vein Thrombosis/Pulmonary Embolism Present on Admission: Yes
[2019-11-30] MEDS: ASPIRIN 81 MG CHEW TAB PO (08:32)
[2019-11-30] MEDS: DOCUSATE 100 MG CAPSULE PO ×2 (08:32→21:41)
[2019-11-30] MEDS: SERTRALINE 50 MG TABLET 100 MG PO (08:32)
[2019-11-30] MEDS: METFORMIN HCL 500 MG TABLET PO (08:33)
[2019-11-30] MEDS: SODIUM CHLORIDE 0.9% FLUSH 10 ML IV ×2 (08:34→21:42)
--- NOTE | 2019-11-30 09:19 | OT.IP.EVAL ---
Current Diagnoses Spinal stenosis, lumbar region with neurogenic claudication (11/29/19) Surgery Performed Operation Date: 11/29/19 07:45 Actual Procedures p L34, L45 Laminectomies - Jonel Begum MD Past Medical History (Last Updated 11/25/19 @ 13:42 by Christina Gates, RN) Anxiety (Acute) Arthritis (Acute) Back pain (Acute) Close exposure to COVID-19 virus (Acute) Hypothyroid (Acute) Non-pressure ulcer of lower extremity (Acute 2018) Peripheral neuropathy (Acute) Poor balance (Acute) Pre-diabetes (Acute) Sciatica (Acute) Spinal stenosis (Acute) Surgical History (Last Updated 11/25/19 @ 09:11 by Christina Gates RN) History of cholecystectomy (Acute) Hx of lumbar discectomy (Acute) Occupational Therapy Inpatient Evaluation/Re-Eval M1 PT/OT-IP Prior Functional Status Start: 11/30/19 10:50 Freq: NEEDED Status: Active Protocol: Document 11/30/19 08:28 [facility] (Rec: 11/30/19 11:15 [facility] [id number]) Medical Review Prior Functional Status Communication Independent. Mobility and Gait Pt states independent with no devices. Activities of Daily Living and IADL's Pt states needing increased time for all Adl ,IADl needs due to pain in her back. Prior Functional Level (Other details) Pt states has multiple history of falls. her last fall was two weeks ago. Social History Household Members spouse Living Arrangements House Number of Floors (Floors) Two Floors Number of Stairs To Enter/Railing? 4 platform steps from the outside and then 3 steps with bilateral rails to the porch and then through the front door and 7-8 steps up to the main living area with left rail going up. Pt has a split level house and states will not has to go downstairs unless decides to use the walk in shower. Pt's sleeps in a different room and suggested on use of cell phone or whistle so pt able to call for assist if needed at night. Home Environment High Toilet,Tub/Shower Doors Home Equipment Straight Cane,Long Handled Sponge Additional Social History Comment Pt states looking into borrowing a FWW, BSC , and possible shower chair from a neighbor. M2 OT-IP Current Condition Start: 11/30/19 10:50 Freq: Status: Active Protocol: Document 11/30/19 08:28 [facility] (Rec: 11/30/19 11:15 [facility] [id number]) Occupational Therapy Current Condition Current Condition Evaluation Date 11/30/19 Treatment Diagnosis Lumbar stenosis with radiculopathy s/p L3-4, l4-5 laminectomy Diagnosis Onset Date 11/29/19 Post Operative Precautions Lumbar Precautions Log Roll,No Twisting,Limit Bending,Lifting Restriction of 10 lbs,Gait Belt above Incisional Area M3 OT- IP Subjective and Pain Start: 11/30/19 10:50 Freq: Status: Active Protocol: Document 11/30/19 08:28 [facility] (Rec: 11/30/19 11:15 [facility] [id number]) OT- Subjective Occupational Therapy Visit Type Type Initial Evaluation Visit Start Time 08: Visit Stop Time 09:19 Total Visit Minutes 51 Occupational Therapy Visit Comments Patient Comments Pt in the recliner and agreed to do OT eval and came in for part of the session. Patient/Caregiver Goals To go home. OT Pain Assessment Pain When Pain Assessed During Mobility Pain Present Pain Present Pain Reported Location Medial Back Intensity 6 Scale Used Numeric (0 - 10) M4 OT- IP ADL's Start: 11/30/19 10:50 Freq: Status: Active Protocol: Document 11/30/19 08:28 [facility] (Rec: 11/30/19 11:15 [facility] [id number]) OT [id number] General Evaluation Self-Feeding Ability Independent OT ADL-Grooming Comments OT Grooming Comments Educated when standing to spit into a cup or hinge at her hips to lean over the sink to spit to best follow her back precautions. OT ADL-Dressing General Eval Lower Body Dressing Ability Maximum Assistance Areas Needing Assistance Socks Comments OT Dressing Comments Pt states may have a sap ppm consultant at home. to assist pt as needed at home. Able to educated and practice LB dressing of socks with socks aid and sap ppm consultant. Pt would benefit from sap ppm consultant, sock aid , and long handled shoe horn. OT ADL-Toileting Comments OT Toileting Comments Able to go over wiping with pt and determined best to stand to wipe and have there to assist as needed. In addition suggested wearing pad may be helpful at night and also use of wet wipes for hygiene needs. At this time pt would need her to assist for all Adl needs. OT ADL-Bathing Comments OT Bathing Comments Not at this time. Pt looking into either getting shower black or tub bench. M5 OT- IP IADL's Start: 11/30/19 10:50 Freq: Status: Active Protocol: Document 11/30/19 08:28 [facility] (Rec: 11/30/19 11:15 [facility] [id number]) OT-Instrumental Activities of Daily Living Home Safety Awareness Awareness of Need for Assistance at Home Good Awareness Medication Management Medication Management Comments Pt's aware that he will provide at least supervision for needs and assist as needed for now. Money Management Money Management Comments Pt's aware that he will provide at least supervision for needs and assist as needed for now. Meal Preparation Meal Preparation Caregiver Provides Assist Atomic Physics Teacher Atomic Physics Teacher Caregiver Provides Assist M6 OT- IP Functional Cognition Start: 11/30/19 10:50 Freq: Status: Active Protocol: Document 11/30/19 08:28 [facility] (Rec: 11/30/19 11:15 [facility] [id number]) Cognitive Factors Limiting Selfcare Function Cognitive Ability Level of Alertness Alert Attention Span Ability Capable of Focused Attention, Capable of Sustained Attention Ability to Follow Commands Able to Follow One Step Commands Memory Description No Deficits Noted Safety Awareness Decreased Ability to Apply Precautions Cognitive Comments Cognitive Assessment Comments Pt needing reminders to incorporate back precautions during mobility and Adl needs. OT- Vision and Hearing OT- Hearing Assessment OT- Hearing Assessment WFL OT- Vision Assessment Visual Acuity Glasses All The Time M7 OT- IP Mobility and Balance Start: 11/30/19 10:50 Freq: Status: Active Protocol: Document 11/30/19 08:28 [facility] (Rec: 11/30/19 11:15 [facility] [id number]) OT- Bed Mobility Assessment Rolling Level of Assistance Minimal Assistance Supine to Sit Supine to Sit Assist Moderate Assistance Sit to Supine Sit to Supine Assist Moderate Assistance Scooting Scooting to Edge of Bed Minimal Assistance OT-Transfer Assessment Sit to and From Stand Sit to and from Stand Minimal Assistance,Moderate Assistance Transfers Transfer Ability Minimal Assistance,Moderate Assistance Technique Transfer Destination Bed,Chair,Toilet Transfer Technique Stand Step Pivot Devices Transfer Assistive Devices Gait Belt,Front Wheeled Walker Comments Mobility Comments Pt needing MODa to stand and needing vc to hinge at her hips and push up from the armrest to stand. Pt noted at times crosses her feet while walking with FWW and educated to try to keep her feet apart more. Suggested to pt to wear shoes would be safer especially due to history of fall and that pt states has neuropathy in her feet. OT- Balance Assessment Sitting Balance and Reactions Static Sitting Balance Ability Good Dynamic Sitting Balance Ability Fair M9 OT- IP Assessment and Plan Start: 11/30/19 10:50 Freq: Status: Active Protocol: Document 11/30/19 08:28 [facility] (Rec: 11/30/19 11:15 [facility] [id number]) OT Summary Assessment and Plan Potential Rehabilitation Potential Good Analytic Complexity at Evaluation Low Summary OT Impairments Pain,Balance,Functional Mobility,Grooming,Dressing, Toileting,Bathing,Toilet Transfers,Shower Transfers, Activity Tolerance Progress Towards Goals Progressing Toward Goals Assessment Summary Pt low complexity and s/p L34- , l4-5 laminectomy and main barriers are pain, multiple steps in the house and has history of multiple fall -last one in the past 2 weeks. Pt has a supportive who has has initiating being able to assist pt for bed mobility, gait belt management, and toileting needs. Pending steps and completion of caregiver training suggest pt go home with to assist her. Goals Grooming Goal Independent Dressing Goal Independent Toileting Goal Independent Bathing Goal Independent Toilet Transfer Goal Independent Shower Transfer Goal Independent Patient/Caregiver Education Goal Demonstrate Post-Op Precautions,Caregiver Independent Assisting Patient Days to Meet Goals 5 Frequency of Treatment Frequency Of Treatment Once a Day Treatment Plan OT Treatment Plan ADL Training,Functional Mobility,Patient/Family Education,Discharge Planning Other Treatment Recommendations and Next caregiver training, shower Treatment Focus Discharge Recommendations OT Discharge Recommendations Home with Assistance Home Equipment Needs BSC, FWW, shower chair versus tub bench, LB dressing equipment Transportation Needs at Discharge Private Vehicle
--- NOTE | 2019-11-30 09:59 | PT.IIE ---
Current Diagnoses Spinal stenosis, lumbar region with neurogenic claudication (11/29/19) Surgery Performed Operation Date: 11/29/19 07:45 Actual Procedures p L34, L45 Laminectomies - Jonel Begum MD Surgical History (Last Updated 11/25/19 @ 09:11 by Christina Gates, RN) History of cholecystectomy (Acute) Hx of lumbar discectomy (Acute) Medical History (Last Updated 11/25/19 @ 13:42 by Christina Gates RN) Anxiety (Acute) Arthritis (Acute) Back pain (Acute) Close exposure to COVID-19 virus (Acute) Hypothyroid (Acute) Non-pressure ulcer of lower extremity (Acute 2018) Peripheral neuropathy (Acute) Poor balance (Acute) Pre-diabetes (Acute) Sciatica (Acute) Spinal stenosis (Acute) Physical Therapy Inpatient Evaluation/Re-Eval M1 PT/OT-IP Prior Functional Status Start: 11/30/19 10:50 Freq: NEEDED Status: Active Protocol: Document 11/30/19 08:28 [facility] (Rec: 11/30/19 11:15 [facility] [id number]) Medical Review Prior Functional Status Communication Indenpendent. Mobility and Gait Pt statwes independent with no devices. Activities of Daily Living and IADL's Pt states needing increased time for all Adl ,IADl needs due to shreyas in her back. Prior Functional Level (Other details) Pt states has multiple history of falls. her last fall was two weeks ago. Social History Household Members spouse Living Arrangements House Number of Floors (Floors) Two Floors Number of Stairs To Enter/Railing? 4 platform steps from the outside and then 3 steps with bilateral rails to the porch and then through the front door and 7-8 steps up to the main living area with left rail going up. Home Environment High Toilet,Tub/Shower Doors Home Equipment Straight Cane,Long Handled Sponge Additional Social History Comment Pt states looking into borrowing a FWW, BSC , and possible shower chair from a neighbor. M1 PT/OT-IP Prior Functional Status Start: 11/30/19 12:44 Freq: NEEDED Status: Active Protocol: Document 11/30/19 09:59 [facility] (Rec: 11/30/19 12:49 [facility] [id number]) Medical Review Prior Functional Status Medical History Reviewed Yes Communication able to make needs known Mobility and Gait pt stated that she is independent with all mobilities and ambulates without AD but occasionally uses 1or 2 walking sticks for outdoor ambulation Activities of Daily Living and IADL's stated that she can manage by herself but is difficulty to do Prior Functional Level (Other details) per OT's note:Pt states has multiple history of falls. her last fall was two weeks ago. Social History Household Members spouse Living Arrangements House Number of Floors (Floors) Two Floors Number of Stairs To Enter/Railing? has 4 platform steps without rails + 3 steps with bilateral rails to enter the house from the front door has 7 steps with L rail ascending to get to kitchen/ bedroom level Home Environment High Toilet,Tub/Shower Doors Home Equipment Straight Cane,Long Handled Sponge Additional Social History Comment Pt states looking into borrowing a FWW, BSC , and possible shower chair from a neighbor. M2 PT-IP Current Condition Start: 11/30/19 12:44 Freq: NEEDED Status: Active Protocol: Document 11/30/19 09:59 [facility] (Rec: 11/30/19 12:49 [facility] [id number]) Physical Therapy Current Condition Current Condition Evaluation Date 11/30/19 Treatment Diagnosis s/p L3-4, L4-5 lami; difficulty in walking Onset Date 11/29/19 Precautions Lumbar Precautions Log Roll,No Twisting,Limit Bending,Lifting Restriction of 10 lbs,Gait Belt above Incisional Area M3 PT-IP Subjective Start: 11/30/19 12:44 Freq: NEEDED Status: Active Protocol: Document 11/30/19 09:59 [facility] (Rec: 11/30/19 12:49 [facility] [id number]) Subjective Physical Therapy Visit Type Type Initial Evaluation Visit Start Time 09:59 Visit Stop Time 10:52 Total Visit Minutes 53 Number of MEDICAL SOCIOLOGIST Visits 0 Physical Therapy Visit Comments Patient Comments pt is agreeable to do PT Therapy Pain Assessment Pain When Pain Assessed At Rest Pain Present Pain Present Pain Reported Location Medial Back Intensity 5 Scale Used Numeric (0 - 10) Pain Management Techniques Apply Cold,Modification of Treatment,Re-positioning, Timing of Activity with Medications M4 PT-IP Mobility and Gait Start: 11/30/19 12:44 Freq: NEEDED Status: Active Protocol: Document 11/30/19 09:59 [facility] (Rec: 11/30/19 13:16 [facility] [id number]) PT-Bed Mobility Assessment Rolling Type of Rolling Log Rolling Level of Assist Minimal Assistance Supine to Sit Supine to Sit Minimal Assistance,1 Person Assistance Sit to Supine Sit to Supine Standby Assistance PT-Transfer Assessment Sit to and From Stand Sit to and from Stand Moderate Assistance,1 Person Assistance,Use of Upper Extremities Equipment Transfer Assistive Device Gait Belt,Front Wheeled Walker Orthotic/Prosthetic Devices or Brace: No Transfers Transfer Destination Chair Transfer Technique Stand Step Pivot Transfer Ability Level of Assist Moderate Assistance,1 Person Assistance,2 Person Assistance ,Use of Upper Extremities Comments Mobility Comments BP supine: 95/69. reviewed back precautions and log roll bed mobility. pt completed supine to sit min A and SBA for sit to supine. pt educated on techniques and completed supine<>sit requiring SBA and cues. BP sitting on EOB: 104/64. completed sit to stand mod A and cues. pt c/o feeling oozy and difficulty in following directions. instructed pt to sit back down. BP checked again: 101/65. NAC came in to assist. completed sit to stand mod A x 1-2 and max cues . completed step transfer using FWW mod A and cues. BP checked: 112/66.. pt ambulated in room using FWW mod A ~ 35 ft. (+) R foot drop. requiring cues for RLE control. pt agreed to stay up on chair. positioned pt on chair. BP checked 118/65. call light and table within reach. set up caregiver training with spouse and agreed on ~ 130 pm today. informed nurse regarding pt's mobility and c/o feeling oozy. Gait Assessment Gait Gait Assistance Required: Moderate Assistance Distance (Feet) 35 Able to Maintain Weight Bearing Status Yes During Gait Assistive Devices Assistive Device Gait Belt,Front Wheeled Walker Orthotic/Prosthetic Devices or Brace: No Gait Deviations General Gait Pattern Antalgic,Decreased Stride Length,Decreased Feet Clearance Factors Limiting Gait Function Factors Limiting Gait Function Decreased Activity Tolerance, Decreased Sensation,Decreased Strength,Difficulty Following Directions,Limited Range of Motion,Pain,Poor Balance,Poor Safety Awareness Comments Gait Comments pls refer to mobility section for details PT-Balance Assessment Sitting Balance and Reactions Static Sitting Balance Ability Good Dynamic Sitting Balance Ability Good Standing Balance and Reactions Static Standing Balance Ability Fair Dynamic Standing Balance Ability Poor Device Used FWW M5 PT-IP Objective Assessments Start: 11/30/19 12:44 Freq: NEEDED Status: Active Protocol: Document 11/30/19 09:59 [facility] (Rec: 11/30/19 13:16 [facility] [id number]) Orientation Orientation/Cognition Level of Alertness Alert Orientation Name,Place,Situation Safety Awareness Decreased Safety Awareness Memory Description Short Term Impaired Gross Range of Motion Lower Extremity ROM Assessment Within Functional Limits Strength Lower Extremity Strength Assessment Right Impaired Hip 3+/5 Knee 3+/5 Ankle 2-/5 Sensation Assessment Sensation Light Touch Impaired Proprioception (Position) Impaired Sensation Description Numbness Comments Sensation Comments stated that she she has neuropathy on BLE from the knees down to B feet but prior to surgery, has more numbness on L thigh area M6 PT-IP Treatment Start: 11/30/19 12:44 Freq: NEEDED Status: Active Protocol: Document 11/30/19 09:59 [facility] (Rec: 11/30/19 13:16 [facility] [id number]) Physical Therapy Treatment Education Education Provided Precautions,Weight Bearing Status,Safety M7 PT-IP Assessment and Plan Start: 11/30/19 12:44 Freq: NEEDED Status: Active Protocol: Document 11/30/19 09:59 [facility] (Rec: 11/30/19 13:16 [facility] [id number]) PT Summary Assessment and Plan Potential Rehabilitation Potential Good Status of Condition at Evaluation Evolving Summary Impairments Pain,ROM,Strength,Balance, Coordination,Sensation,Tone, Cognition,Bed Mobility, Transfers,Gait,Activity Tolerance Assessment Summary pt requiring mod A with transfers and ambulation using FWW. has (+) R foot drop and has difficlty wiht RLE motor control. pt also c/o feeling oozy but BP is stable. pt unable to tolerate much activity this morning. set up caregiver training in the afternoon at ~ 130 pm with spouse. d/c plan depending if spouse will be able to assist pt safety. pt also has stairs at home and has to complete prior to d/c. will continue to monitor progress. Goals Bed Mobility Goal Independent Transfer Goal Independent,Front Wheeled Walker Gait Goal Independent,Front Wheel Walker Gait Distance 200 Other Goals up/down 4 plantform steps using FWW CGA up/down 7 steps L rail ascending CGA Days to Meet Goals 5 Frequency of Treatment Frequency Of Treatment Twice a Day Treatment Plan Physical Therapy Treatment Plan Bed Mobility Training,Transfer Training,Gait Training, Therapeutic Exercise,Balance Retraining,Post Op Education, Discharge Planning,Hot or Cold Pack,Neuromuscular Re-ed, Coordination Retraining,Manual Therapy Other Recommendations and Next Treatment ambulation, caregiver training Focus , stair training Recommendations To Nursing Amount of Assist Needed 1 Person Assist Discharge Recommendations PT Discharge Recommendations Home with Assistance, Outpatient PT Transportation Needs at Discharge Private Vehicle
[2019-11-30] MEDS: hydrOXYzine pamoate 25 MG CAPSULE PO (11:08)
--- NOTE | 2019-11-30 13:35 | PT.IPTN ---
Current Diagnoses Spinal stenosis, lumbar region with neurogenic claudication (11/29/19) Surgery Performed Operation Date: 11/29/19 07:45 Actual Procedures p L34, L45 Laminectomies - Jonel Begum MD Physical Therapy Treatment Note M2 PT-IP Current Condition Start: 11/30/19 12:44 Freq: NEEDED Status: Active Protocol: Document 11/30/19 09:59 AB (Rec: 11/30/19 12:49 AB [email or web address]) Physical Therapy Current Condition Current Condition Evaluation Date 11/30/19 Treatment Diagnosis s/p L3-4, L4-5 lami; difficulty in walking Onset Date 11/29/19 Precautions Lumbar Precautions Log Roll,No Twisting,Limit Bending,Lifting Restriction of 10 lbs,Gait Belt above Incisional Area M3 PT-IP Subjective Start: 11/30/19 12:44 Freq: NEEDED Status: Active Protocol: Document 11/30/19 13:35 AB (Rec: 11/30/19 15:23 AB [email or web address]) Subjective Physical Therapy Visit Type Type Treatment Note Visit Start Time 13:35 Visit Stop Time 14:25 Total Visit Minutes 50 Number of CD REACTOR OPERATOR Visits 0 Physical Therapy Visit Comments Patient Comments pt agreeable to do PT; spouse in room for caregiver training Therapy Pain Assessment Pain When Pain Assessed At Rest Pain Present Pain Present Pain Reported Location Medial Back Intensity 5 Scale Used Numeric (0 - 10) Pain Management Techniques Modification of Treatment,Re- positioning M4 PT-IP Mobility and Gait Start: 11/30/19 12:44 Freq: NEEDED Status: Active Protocol: Document 11/30/19 13:35 AB (Rec: 11/30/19 15:23 AB [id number]) PT-Bed Mobility Assessment Rolling Type of Rolling Log Rolling Level of Assist Independent,Contact Guard Assistance Supine to Sit Supine to Sit Standby Assistance,Contact Guard Assistance Sit to Supine Sit to Supine Standby Assistance,Contact Guard Assistance Scooting Scooting to Edge of Bed Standby Assistance PT-Transfer Assessment Sit to and From Stand Sit to and from Stand Contact Guard Assistance, Minimal Assistance Equipment Transfer Assistive Device Gait Belt,Front Wheeled Walker Orthotic/Prosthetic Devices or Brace: No Transfers Transfer Destination Chair Transfer Technique ambulated using FWW Transfer Ability Level of Assist Contact Guard Assistance Comments Mobility Comments caregiver training conducted. spouse was able to assist pt with bed mobility and was able to put safety belt on pt. also assisted pt with sit to stand x 3 reps. pt cued for techniques but afterwards was able to complete without cues. pt ambulated in room with spouse assisting CGA 30 ft. pt agreed to do stairs. and ambulated ~ 40 ft using FWW CGA with spouse assisting. educated on techniques on how to go up/down platform steps and regular stairs. pt completed up/down platform step min A and cues. completed up/down 3 steps using bilateral rails min A and cues. spouse assisted pt with stair climbing. pt required frequent rest breaks during tx session. unable to complete up/down steps with one rail due to fatigue but agreed to do stairs again tomorrow. pt wheeled back to her room. ambulated from w/c to chair using FWW ~ 20 ft with spouse assisting. positioned pt on chair. call light and table placed within reach. pt also c/o intermittent feelingof ooziness but BP has been stable. Gait Assessment Gait Gait Assistance Required: Contact Guard Assist Distance (Feet) 40 Able to Maintain Weight Bearing Status Yes During Gait Assistive Devices Assistive Device Gait Belt,Front Wheeled Walker Gait Deviations General Gait Pattern Antalgic Factors Limiting Gait Function Factors Limiting Gait Function Decreased Activity Tolerance, Decreased Sensation,Decreased Strength,Difficulty Following Directions,Limited Range of Motion,Pain,Poor Balance,Poor Safety Awareness Comments Gait Comments pls refer to mobility section for details Stair Climbing Assessment Evaluation Level of Assist On Stairs Minimal Assistance,1 Person Assistance Devices Stair Climbing Assistive Devices Four Wheel Walker,Left Railing ,Right Railing Technique/Endurance Stair Climbing Direction Ascend and Descend Stair Climbing Technique Step to Step Number of Steps Climbed 3 Stair Climbing Set # Repetitions (reps) 1 Comments Stair Climbing Comments cargiver training conducted: spouse was able to assist pt safely with up/down platform step using FWW and up/down 3 steps with bilateral rail min A pt still needs stair climbing training using 1 rail. PT-Balance Assessment Sitting Balance and Reactions Static Sitting Balance Ability Good Dynamic Sitting Balance Ability Good Standing Balance and Reactions Static Standing Balance Ability Fair Dynamic Standing Balance Ability Poor Device Used FWW M5 PT-IP Objective Assessments Start: 11/30/19 12:44 Freq: NEEDED Status: Active Protocol: Document 11/30/19 09:59 AB (Rec: 11/30/19 13:16 AB [id number]) Orientation Orientation/Cognition Level of Alertness Alert Orientation Name,Place,Situation Safety Awareness Decreased Safety Awareness Memory Description Short Term Impaired Gross Range of Motion Lower Extremity ROM Assessment Within Functional Limits Strength Lower Extremity Strength Assessment Right Impaired Hip 3+/5 Knee 3+/5 Ankle 2-/5 Sensation Assessment Sensation Light Touch Impaired Proprioception (Position) Impaired Sensation Description Numbness Comments Sensation Comments stated that she she has neuropathy on BLE from the knees down to B feet but prior to surgery, has more numbness on L thigh area M6 PT-IP Treatment Start: 11/30/19 12:44 Freq: NEEDED Status: Active Protocol: Document 11/30/19 13:35 AB (Rec: 11/30/19 15:23 AB [id number]) Physical Therapy Treatment Education Education Provided Precautions,Safety M7 PT-IP Assessment and Plan Start: 11/30/19 12:44 Freq: NEEDED Status: Active Protocol: Document 11/30/19 13:35 AB (Rec: 11/30/19 15:23 AB [email or web address]) PT Summary Assessment and Plan Potential Rehabilitation Potential Good Summary Impairments Pain,ROM,Strength,Balance, Coordination,Sensation,Tone, Cognition,Bed Mobility, Transfers,Gait,Activity Tolerance Progress Towards Goals Slow Progress due to Pain,Slow Progress due to Activity Tolerance Assessment Summary caregiver training conducted with pt and spouse and spouse was able to assist pt but further caregiver training is needed for stair climbing training. pt continues to have R foot drop and has decrease activity tolerance affecting mobility level. will conduct more caregiver training tomorrow. Goals Bed Mobility Goal Independent Transfer Goal Independent,Front Wheeled Walker Gait Goal Independent,Front Wheel Walker Gait Distance 200 Other Goals up/down 4 plantform steps using FWW CGA up/down 7 steps L rail ascending CGA Days to Meet Goals 5 Frequency of Treatment Frequency Of Treatment Twice a Day Treatment Plan Physical Therapy Treatment Plan Bed Mobility Training,Transfer Training,Gait Training, Therapeutic Exercise,Balance Retraining,Post Op Education, Discharge Planning,Hot or Cold Pack,Neuromuscular Re-ed, Coordination Retraining,Manual Therapy Other Recommendations and Next Treatment ambulation, caregiver training Focus , stair training Recommendations To Nursing Amount of Assist Needed 1 Person Assist Discharge Recommendations PT Discharge Recommendations Home with Assistance,Home Health Transportation Needs at Discharge Private Vehicle
--- NOTE | 2019-11-30 13:35 | CM.DANOTE ---
Patient is a 64 year old female who was admitted on 11/29/19 for Lumbar Surgery. Pt has [employer] and [employer] for insurance and her PCP is Dr. Liza Major. EMR was reviewed. Per Ortho MD, pt tolerated procedure well with pain better controlled today and ambulated with assist in room and to work with PT/OT today for possible d/c home later today or tomorrow. Per PT/OT, pt is independent with ADL's at baseline but has had increased falls the past few months and has neuropathy in her feet which impacts her balance and gait and currently recommending likely home with assist but still needs to complete stairs later today and likely stay overnight as still some numbness in her legs. SW met bedside with pt and explained role and pt confirms that she lives at home in [place] with her spouse and he is available for assist at d/c. Pt is mostly independent with ADL's and her spouse and Dtr Mariam are her DPOA's. Pt lives in a split level home therefore stairs are a barrier to her discharging home today. Pt denies any hx of HH or SNF and preference is home tomorrow if stable and spouse to come participate in CG training later today or tomorrow. Plan: SW to follow for further PT/OT and stairs/CG training to confirm plan of home with spouse assist and outpt PT. RITU Thompson Discharge Planning/Care Management CM Discharge Assessment Start: 11/30/19 13:34 Freq: Status: Active Protocol: Document 11/30/19 13:34 BF (Rec: 11/30/19 13:35 BF [id number]) Discharge Planning Assessment Assigned Linotype Machinist Apprentice DAYTON Mazariegos DPOA/Assigned Designee Name Spouse and Dtr Mariam Contact Information [phone] Advance Directives? Yes Advance Directives on File No History Provided By Patient,Medical Record Has Patient been admitted in last 30 No days? Prior Living Arrangements House Household Members spouse Type of transporation used prior to Relies on Others admit Independent with ADL's Yes Is patient alert and oriented? Yes Caregiver for Another No Community Services used prior to Physical Therapy admission: Discharge Plan Home Community Services Physical Therapy Referrals Initiated None needed Whiteboard Updated in Patient Room with Yes name and ext. # of Linotype Machinist Apprentice Review Status In Process Please Provide Date Initial DC 11/30/19 Assessment Was Performed Next Review Type Continued Stay Review Pre-Anesthesia Assessment Start: 11/25/19 09:04 Freq: Status: Complete Protocol: Document 11/25/19 09:04 [facility] (Rec: 11/25/19 09:19 [facility] [id number]) Pre-Anesthesia Assessment Preferred Name Tita Patient Information Reviewed Via Chart Review,Phone Assessment Assessment Completed With Patient H&P Completed Within 30 Days Yes Comment Pre-op labs/EKG not identified , COVID screen @ 11/26/19- Negative Primary Care Provider Jesus Santillan Medical Clearance Received Yes Seen Specialist in Last 12 Months Yes Specialist Seen Orthopedist Comment PCP pre-op clearance 11/01/19 scanned to record Primary Language Hungarian Family And Marriage Counsellor Required No Height 170.18 cm Weight 71.214 kg Body Mass Index (BMI) 24.5 Hearing Ability Normal Visual Assist Glasses Dentition Type Teeth, Natural Present Barriers to Learning None Hx Anesthesia Reactions No Hx Family Anesthesia Reaction No Hx Malignant Hyperthermia No Hx Blood Transfusions No Anesthesia Review Requested Yes: Reviewed prior to being scheduled Additional comment Anesthesia review scanned to record Alcohol Intake Frequency Other: Denies use Smoking Status Former smoker Substance Use Type does not use Pain Present Pain Reported Musculoskeletal Symptoms Back Pain,Muscle Weakness, Numbness,Radiating Pain into Limb,Tingling History of Falling (Recent or History of Yes ) Patient is completely paralyzed or No completely immobile Comment Poor balance Is patient on oxygen? No Does patient have COOK/SOB No Hx Sleep Apnea No Currently Taking a Beta Hannah No Hx Chest Pain No Hx SOB No Hx Syncope or Dizziness No Anti-Coagulant Therapy No Has a Co Founder And President No Cardiac Testing No Hx Pacemaker/ICD No Pacemaker Rep Required? No Cardiac Clearance Received Not Applicable Diet Type At Home Regular dysphagia No Bladder Pattern Incontinent,Urgency Urinary Catheter Present No Hx Urinary Self Catheterization No Diabetes No: Pre-diabetic Patient No Lactating No Hx Drug Resistant Organism No Have you had any close contact with Yes: Exposed 3 weeks ago/October someone diagnosed with COVID-19? 30th to a friend Are you experiencing any of these Diarrhea,Headache,Vomiting, symptoms? Weakness Comment Strongly advised pt to take her temperature, COVID screen @ [facility] 11/25 Marital Status Lives With spouse Patient Discharge Plan Description Return Home Advance Directives? Yes
[2019-11-30] MEDS: GABAPENTIN 600 MG TABLET 1200 MG PO (16:37)
[2019-11-30] MEDS: MAGNESIUM OXIDE 400 MG TABLET PO (16:37)
[2019-11-30] MEDS: LACTOBACILLUS ACIDOPHILUS TABLET 1 EACH PO (16:38)
[2019-11-30] MEDS: lisinopriL 20 MG TABLET 40 MG PO (21:41)
[2019-11-30] MEDS: SENNOSIDES 8.6 MG TABLET 17.2 MG PO (21:41)
[2019-11-30] MEDS: AMLODIPINE 5 MG TABLET PO (21:41)
[2019-11-30] MEDS: diphenhydrAMINE 25 MG TABLET PO (21:42)
[2019-11-30] MEDS: LEVOTHYROXINE 88 MCG TABLET 176 MCG PO (21:43)
[2019-12-01] MEDS: HYDROCODONE/ACET 5/325 TABLET 2 TAB PO ×2 (02:35→07:59)
[2019-12-01 02:42] VITALS: BP 111/64; PULSE 62; RESP 18; TEMP 36.6; O2SAT 93
--- NOTE | 2019-12-01 07:15 | PM.PNPO.1 ---
Subjective Subjective Date Patient Seen: 12/01/19 Time Patient Seen: 07:15 Interval history: Much better today. Still requiring some assistance and has not done stairs at Exam Vital Signs (past 8 hours): - 12/01/19 02:42 Temperature 97.9 F Pulse Rate 62 Respiratory Rate 18 Blood Pressure 111/64 Pulse Oximetry 93 Oxygen Delivery Method Room Air Oxygen Flow Rate 0 Const Orientation: alert and oriented x3 Back/Spine/Pelvis Other: CDI. 5/5 motor both lower extremities Objective Labs Result Diagrams: 11/30/19 05:36 Assessment & Plan Post-op Postoperative Procedures: Procedures Operation Date: 11/29/19 07:45 Actual Procedures Side Surgeon p L34, L45 Laminectomies Jonel Begum MD she is doing well. Will mobilize today with therapy and plan to discharge home later. Quality VTE Deep Vein Thrombosis/Pulmonary Embolism Present on Admission: Yes
[2019-12-01] MEDS: METFORMIN HCL 500 MG TABLET PO (07:58)
[2019-12-01] MEDS: ASPIRIN 81 MG CHEW TAB PO (07:58)
[2019-12-01] MEDS: SERTRALINE 50 MG TABLET 100 MG PO (07:58)
[2019-12-01] MEDS: SODIUM CHLORIDE 0.9% FLUSH 10 ML IV (07:59)
[2019-12-01] MEDS: ALENDRONATE 70 MG TABLET PO (07:59)
[2019-12-01] MEDS: DOCUSATE 100 MG CAPSULE PO (07:59)
[2019-12-01 08:05] VITALS: BP 115/66; PULSE 58; RESP 18; TEMP 37.1; O2SAT 95
--- NOTE | 2019-12-01 09:40 | OT.IP.TRT ---
Current Diagnoses Spinal stenosis, lumbar region with neurogenic claudication (11/29/19) Surgery Performed Operation Date: 11/29/19 07:45 Actual Procedures p L34, L45 Laminectomies - Jonel Begum MD Occupational Therapy Treatment Note M2 OT-IP Current Condition Start: 11/30/19 10:50 Freq: Status: Active Protocol: Document 11/30/19 08:28 [facility] (Rec: 11/30/19 11:15 [facility] [id number]) Occupational Therapy Current Condition Current Condition Evaluation Date 11/30/19 Treatment Diagnosis Lumbar stenosis with radiculopathy s/p L3-4, l4-5 laminectomy Diagnosis Onset Date 11/29/19 Post Operative Precautions Lumbar Precautions Log Roll,No Twisting,Limit Bending,Lifting Restriction of 10 lbs,Gait Belt above Incisional Area M3 OT- IP Subjective and Pain Start: 11/30/19 10:50 Freq: Status: Active Protocol: Document 12/01/19 13:23 [facility] (Rec: 12/01/19 13:36 [facility] [id number]) OT- Subjective Occupational Therapy Visit Type Type Treatment Note Visit Start Time 08:39 Visit Stop Time 09:40 Total Visit Minutes 61 Occupational Therapy Visit Comments Patient Comments Pt wanting to shower. Patient/Caregiver Goals To go home. OT Pain Assessment Pain When Pain Assessed At Rest Pain Present Pain Present Denied Pain M4 OT- IP ADL's Start: 11/30/19 10:50 Freq: Status: Active Protocol: Document 12/01/19 13:23 [facility] (Rec: 12/01/19 13:36 [facility] [id number]) OT ADL-Grooming General Evaluation Grooming Ability Standby Assistance Areas Needing Assistance Retrieving/Set-up of Grooming Items OT ADL-Dressing General Eval Lower Body Dressing Ability Moderate Assistance Areas Needing Assistance Underpants/Brief,Pants/Shorts Comments OT Dressing Comments Assist to help get brief and skirt up over her hips. Pt able to use the instructor nurse, sock aids , and shoe horn to assist with LB dressing needs . OT ADL-Toileting Comments OT Toileting Comments Pt not having to go. OT ADL-Bathing Bathing Type Bathing Type Shower General Evaluation Bathing Ability Moderate Assistance Areas Needing Assistance Wash/Dry Back,Wash/Dry Lower Extremities Devices Bathing Equipment Hand Held Shower Sprayer, Shower Chair with Arms,Grab Bars Comments OT Bathing Comments Pt needing assist for her back and LE. Pt realizes now that it would be best to get a shower chair for home use. SBA while standing to get her pericare needs. M6 OT- IP Functional Cognition Start: 11/30/19 10:50 Freq: Status: Active Protocol: Document 12/01/19 13:23 [facility] (Rec: 12/01/19 13:36 [facility] [id number]) Cognitive Factors Limiting Selfcare Function Cognitive Comments Cognitive Assessment Comments Pt more alert today and able to follow back precautions with good safety. Encouraged pt to be sure to ask her to assist with needs initially. M7 OT- IP Mobility and Balance Start: 11/30/19 10:50 Freq: Status: Active Protocol: Document 12/01/19:23 [facility] (Rec: 12/01/19 13:36 [facility] [id number]) OT- Bed Mobility Assessment Sit to Supine Sit to Supine Assist Contact Guard Assistance OT-Transfer Assessment Sit to and From Stand Sit to and from Stand Contact Guard Assistance Transfers Transfer Ability Contact Guard Assistance, Minimal Assistance Technique Transfer Destination Bed,Chair,Shower Stall Transfer Technique Stand Step Pivot Devices Transfer Assistive Devices Gait Belt,Front Wheeled Walker Comments Mobility Comments Today noted better from sit to stand by pushing up with hands on the armrest of recliner. GALILEO for balance while stepping over the threshold of the shower. OT- Gait Assessment Comments Gait Ability Comments CGA with FWW while in the room . OT- Balance Assessment Sitting Balance and Reactions Static Sitting Balance Ability Normal Dynamic Sitting Balance Ability Good Standing Balance and Reactions Static Standing Balance Ability Fair M9 OT- IP Assessment and Plan Start: 11/30/19 10:50 Freq: Status: Active Protocol: Document 12/01/19 13:23 [facility] (Rec: 12/01/19 13:36 [facility] [id number]) OT Summary Assessment and Plan Potential Rehabilitation Potential Good Analytic Complexity at Evaluation Low Summary OT Impairments Pain,Balance,Functional Mobility,Dressing,Toileting, Bathing,Toilet Transfers, Shower Transfers Progress Towards Goals Progressing Toward Goals Assessment Summary Pt able to shower with assist and good understanding and safety to use LB dressing equipment for shower and dressing needs. Pt has a supportive that will assist her at home. Pt states was able tro get a FWW and BSC, and will look into getting a shower chair. Sock aid and long handled shoe horn issued . Goals Grooming Goal Independent Dressing Goal Independent Toileting Goal Independent Bathing Goal Independent Toilet Transfer Goal Independent Shower Transfer Goal Independent Patient/Caregiver Education Goal Demonstrate Post-Op Precautions,Caregiver Independent Assisting Patient Days to Meet Goals 2 Frequency of Treatment Frequency Of Treatment Once a Day Treatment Plan OT Treatment Plan ADL Training,Functional Mobility,Patient/Family Education,Discharge Planning Discharge Recommendations OT Discharge Recommendations Home with Assistance Home Equipment Needs shower chair Transportation Needs at Discharge Private Vehicle
--- NOTE | 2019-12-01 10:14 | PT.IPTN ---
Current Diagnoses Spinal stenosis, lumbar region with neurogenic claudication (11/29/19) Surgery Performed Operation Date: 11/29/19 07:45 Actual Procedures p L34, L45 Laminectomies - Jonel Begum MD Physical Therapy Treatment Note M2 PT-IP Current Condition Start: 11/30/19 12:44 Freq: NEEDED Status: Discharge Protocol: Document 11/30/19 09:59 AB (Rec: 11/30/19 12:49 AB [id number]) Physical Therapy Current Condition Current Condition Evaluation Date 11/30/19 Treatment Diagnosis s/p L3-4, L4-5 lami; difficulty in walking Onset Date 11/29/19 Precautions Lumbar Precautions Log Roll,No Twisting,Limit Bending,Lifting Restriction of 10 lbs,Gait Belt above Incisional Area M3 PT-IP Subjective Start: 11/30/19 12:44 Freq: NEEDED Status: Discharge Protocol: Document 12/01/19 10:14 AB (Rec: 12/01/19 13:11 AB [id number]) Subjective Physical Therapy Visit Type Type Treatment Note Visit Start Time 10:14 Visit Stop Time 10:38 Total Visit Minutes 24 Number of RN TRAUMA Visits 0 Physical Therapy Visit Comments Patient Comments pt with spouse for caregiver training Therapy Pain Assessment Pain When Pain Assessed At Rest Pain Present Pain Present Pain Reported Location Medial Back Intensity 5 Scale Used Numeric (0 - 10) Pain Management Techniques Re-positioning,Timing of Activity with Medications M4 PT-IP Mobility and Gait Start: 11/30/19 12:44 Freq: NEEDED Status: Discharge Protocol: Document 12/01/19 10:14 AB (Rec: 12/01/19 13:11 AB [id number]) PT-Bed Mobility Assessment Rolling Type of Rolling Log Rolling Supine to Sit Supine to Sit Standby Assistance Sit to Supine Sit to Supine Standby Assistance PT-Transfer Assessment Sit to and From Stand Sit to and from Stand Contact Guard Assistance,1 Person Assistance,Use of Upper Extremities Equipment Transfer Assistive Device Gait Belt,Front Wheeled Walker Orthotic/Prosthetic Devices or Brace: No Comments Mobility Comments caregiver training conducted. spouse was able to assist pt with bed mobility. completed sit <>stand x 3 reps CGA and cues. spouse initially was not cueing pt for right technique for hand placement/ body positioning but was able to assist pt. pt ambulated using FWW SBA to CGA. completed up/down platform steps and stairs with spouse assisting. spouse was able to assist pt safely. pt ambulated back to her room. pt requested to use the toilet and ambulated towards the toilet. pt wants to use the toilet for a few minutes. pt instructed and given call button for assistance when ready. informed nurse. Gait Assessment Gait Gait Assistance Required: Standby Assistance,Contact Guard Assist Distance (Feet) 50 Able to Maintain Weight Bearing Status Yes During Gait Assistive Devices Assistive Device Gait Belt,Front Wheeled Walker Orthotic/Prosthetic Devices or Brace: No Gait Deviations General Gait Pattern Antalgic,Decreased Stride Length,Decreased Feet Clearance Factors Limiting Gait Function Factors Limiting Gait Function Decreased Activity Tolerance, Decreased Sensation,Decreased Strength,Difficulty Following Directions,Limited Range of Motion,Pain,Poor Balance,Poor Safety Awareness Stair Climbing Assessment Evaluation Level of Assist On Stairs Contact Guard Assistance, Minimal Assistance,1 Person Assistance Devices Stair Climbing Assistive Devices Front Wheel Walker,Left Railing,Right Railing Technique/Endurance Stair Climbing Direction Ascend and Descend Stair Climbing Technique Step to Step Number of Steps Climbed 3 Stair Climbing Set # Repetitions (reps) 3 Comments Stair Climbing Comments completed up/down platform step using FWW CGA, up/down 3 steps using bilateral rails CGA and using just L rail CGA to min A. spouse was able to assist pt safely. M5 PT-IP Objective Assessments Start: 11/30/19 12:44 Freq: NEEDED Status: Discharge Protocol: Document 11/30/19 09:59 AB (Rec: 11/30/19 13:16 AB [id number]) Orientation Orientation/Cognition Level of Alertness Alert Orientation Name,Place,Situation Safety Awareness Decreased Safety Awareness Memory Description Short Term Impaired Gross Range of Motion Lower Extremity ROM Assessment Within Functional Limits Strength Lower Extremity Strength Assessment Right Impaired Hip 3+/5 Knee 3+/5 Ankle 2-/5 Sensation Assessment Sensation Light Touch Impaired Proprioception (Position) Impaired Sensation Description Numbness Comments Sensation Comments stated that she she has neuropathy on BLE from the knees down to B feet but prior to surgery, has more numbness on L thigh area M6 PT-IP Treatment Start: 11/30/19 12:44 Freq: NEEDED Status: Discharge Protocol: Document 12/01/19 10:14 AB (Rec: 12/01/19 13:11 AB [id number]) Physical Therapy Treatment Education Education Provided Precautions,Safety M7 PT-IP Assessment and Plan Start: 11/30/19 12:44 Freq: NEEDED Status: Discharge Protocol: Document 12/01/19 10:14 AB (Rec: 12/01/19 13:11 AB [id number]) PT Summary Assessment and Plan Potential Rehabilitation Potential Good Summary Impairments Pain,ROM,Strength,Balance, Coordination,Sensation,Tone, Cognition,Bed Mobility, Transfers,Gait,Activity Tolerance Progress Towards Goals Progressing Toward Goals,Safe For Discharge Assessment Summary caregiver training conducted and spouse was able to assist pt safely with bed mobiltiy, transfers and ambulation. pt plans to go home today and spouse to assist. Goals Bed Mobility Goal Independent Transfer Goal Independent,Front Wheeled Walker Gait Goal Independent,Front Wheel Walker Gait Distance 200 Other Goals up/down 4 plantform steps using FWW CGA up/down 7 steps L rail ascending CGA Days to Meet Goals 5 Frequency of Treatment Frequency Of Treatment Twice a Day Treatment Plan Physical Therapy Treatment Plan Bed Mobility Training,Transfer Training,Gait Training, Therapeutic Exercise,Balance Retraining,Post Op Education, Discharge Planning,Hot or Cold Pack,Neuromuscular Re-ed, Coordination Retraining,Manual Therapy Other Recommendations and Next Treatment ambulation, caregiver training Focus , stair training Recommendations To Nursing Amount of Assist Needed 1 Person Assist Discharge Recommendations PT Discharge Recommendations Home with Assistance,Home Health Transportation Needs at Discharge Private Vehicle
[2019-12-01] MEDS: hydrOXYzine pamoate 25 MG CAPSULE PO (11:00)
--- NOTE | 2019-12-01 11:27 | PC.NURSE ---
Discharge instructions and home care handouts reviewed wt patient and her . They state understanding and have no further questions or concerns at this time. IV removed intact. Dressing (coversite placed after shower today) remains CDI. Patient states she has follow up appointment already scheduled. Prescriptions given to patient to fill at pharmacy of choice. Escorted out via wheelchair by MANAGER IMMUNOLOGY to be discharged to home with .
== END 2019-12-01 11:31 | disposition home or self-care (01) ==
LOC: OR 06:23 → AC 06:26
PROVIDERS: Anesthesiology; PCP Physician Assistant; Referring Provider Physician Assistant; Visit Provider Orthopaedic Surgery
PROC: (CPT 63047; principal; 2019-11-29 07:45)
DX: M48.062 Spinal stenosis, lumbar region with neurogenic claudication (principal); M54.16 Radiculopathy, lumbar region; G62.89 Other specified polyneuropathies; I10 Essential (primary) hypertension
CPT/HCPCS: 63047; 63048; 36415; 72020; 76000; 82550; 82553; 84484; 85014; 85018; 93005; 97162; 97165; 97530; 97535; J0330; J0690; J1100; J1170; J2250; J2405; J2704; J2765; J3010

== ENCOUNTER 2019-12-05 14:17 | Emergency (ER) | payer MEDICARE, OTHER, SELFPAY ==
[2019-11-29 13:11] VITALS: BMI 27.6
[2019-12-05 14:27] VITALS: BP 138/76; PULSE 67; RESP 18; TEMP 36.7; O2SAT 100; BMI 28.2
--- NOTE | 2019-12-05 14:33 | ED.BACK ---
HPI - Back Pain/Injury General Chief Complaint: Back Pain/Injury Stated Complaint: sent for a stat CT Time Seen by Provider: 12/05/19 14:25 Source: patient Limitations: physical limitation History of Present Illness HPI Narrative: Patient is a 64-year-old female who presents after L3-L4-L4-L5 laminectomy on 11/29/[address] austin bansal presenting today with increased urinary incontinence and increased numbness of the right leg. She says her right leg is overall feeling weaker, and is having difficulty ambulating. She was instructed to come to the ED 2 days ago but came in today. She denies any fever or chills. MD Complaint: back pain Location: lumbar spine Related Data Home Medications Medication Instructions Recorded Confirmed Calcium Pws-Hjw-Gkcp 2 tab PO QPM 12/17/18 11/25/19 Probiotic 1 cap PO QPM 12/17/18 11/25/19 Retin-A Micro Pump 1 applic TOPICAL DIRECTED 12/17/18 11/25/19 apple cider vinegar 2,400 mg PO QPM 12/17/18 11/25/19 gabapentin 1,200 mg PO QPM 12/17/18 11/29/19 lisinopril 40 mg PO QPM 12/17/18 11/29/19 magnesium oxide 400 mg PO QPM 12/17/18 11/29/19 sertraline 100 mg PO DAILY 12/17/18 11/29/19 alendronate [Fosamax] 70 mg PO QWEEK 11/25/19 11/29/19 amlodipine 5 mg PO DAILY 11/25/19 11/29/19 levothyroxine 176 mcg PO BEDTIME 11/25/19 11/29/19 metformin 500 mg PO DAILY 11/25/19 11/29/19 aspirin [Aspirin Childrens] 81 mg PO DAILY 11/29/19 11/29/19 Previous Rx's Medication Instructions Recorded docusate sodium [DOK] 100 mg PO BID PRN #30 cap 11/30/19 hydrocodone-acetaminophen 1 tab PO Q4HR PRN #20 tab 11/30/19 hydroxyzine pamoate 25 mg PO Q4HR PRN #20 cap 11/30/19 Allergies Allergy/AdvReac Type Severity Reaction Status Date / Time erythromycin base Allergy Verified 11/29/19 06:39 Review of Systems Review of Systems Narrative: GENERAL: Denies chills, fatigue, malaise, fever, sweats, travel HEENT: Denies sinus pain, ear pain, sore throat, difficulty swallowing, neck pain RESPIRATORY: Denies dyspnea, cough, wheezing, hemoptysis, sputum. CARDIOVASCULAR: Denies chest pain, palpitations, orthopnea, edema GASTROINTESTINAL: Denies nausea, vomiting, abdominal pain, diarrhea, constipation, melena. : Denies dysuria, frequency, incontinence, hematuria, urinary retention, flank pain. MUSCULOSKELETAL: See HPI SKIN: No rash, no erythema, no pruritus NEUROLOGIC: Denies weakness, dizziness, headache, numbness, change in speech, confusion PSYCHIATRIC: No concerning psychosocial issues. 12 point review of systems is negative except for those stated above and HPI Patient History Medical History (Updated 12/05/19 @ 17:01 by Sana Baer DO) Anxiety (Acute) Arthritis (Acute) Back pain (Acute) Close exposure to COVID-19 virus (Acute) Hypothyroid (Acute) Non-pressure ulcer of lower extremity (Acute 2018) Peripheral neuropathy (Acute) Poor balance (Acute) Pre-diabetes (Acute) Sciatica (Acute) Spinal stenosis (Acute) Surgical History (Updated 11/25/19 @ 09:11 by Christina Gates RN) History of cholecystectomy (Acute) Hx of lumbar discectomy (Acute) Social History marital status: unknown household members: spouse Smoking Status: Former smoker alcohol intake: current Smoking Status: Former smoker alcohol intake frequency: holidays/special occasions only Substance Use Type: does not use Exam Initial Vital Signs Initial Vital Signs: Vital Signs Temperature 98.1 F 12/05/19 14:27 Pulse Rate 67 12/05/19 14:27 Respiratory Rate 18 12/05/19 14:27 Blood Pressure 138/76 12/05/19 14:27 Pulse Oximetry 100 12/05/19 14:27 GENERAL: Well-appearing, well-nourished and in no acute distress. HEENT: Head atraumatic,EOMI, pupils reactive, face symmetric, moist mucous membranes CARDIOVASCULAR: Regular rate and rhythm without murmurs, rubs or gallops. RESPIRATORY: Breath sounds equal bilaterally, no wheezes rales or rhonchi. ABDOMEN: Soft, nontender. Normoactive bowel sounds all 4 quadrants. No guarding or rebound. BACK: No vertebral tenderness dressing in place it is not saturated EXTREMITIES: Normal range of motion, no clubbing or edema. Neurovascularly intact NEUROLOGICAL: Alert and oriented x4.Normal gait and speech. Cranial nerves II through XII grossly intact. Decreased sensation to sharp sensation on the right side, also along the saddle area SKIN: Warm, dry, no laceration, no petechiae, no rashes or lesions. Course Orders Ordered: ED Orders 12/05/19 14:33 MR lumbar spine wo/w con Stat 12/05/19 14:38 Basic Metabolic Panel Stat Complete Blood Count AUTO DIFF Stat Discontinued Medications Morphine Sulfate (Morphine) 4 mg IV NOW ONE Stop: 12/05/19 14:55 Last Admin: 12/05/19 15:03 Dose: 4 mg Documented by: UZAIR Vital Signs Vital signs: Vital Signs - 8 hr 12/05/19 14:27 Temperature 98.1 F Pulse Rate 67 Respiratory Rate 18 Blood Pressure 138/76 Pulse Oximetry 100 MDM - Back Pain/Injury Lab Data Attestation: I reviewed the patient's lab results. Result diagrams: 12/05/19 14:38 12/05/19 14:38 Labs: Lab Results 12/05/19 12/05/19 Range/Units 14:38 14:38 WBC 6.5 (4.5-11.0) X10^3/uL RBC 4.18 (4.0-5.2) X10^6/uL Hgb 12.3 (12.0-16.0) g/dL Hct 37.3 (36-46) % MCV 89.1 (80-100) fL MCH 29.5 (26-34) PG MCHC 33.1 (30-36) % RDW 14.2 (11.6-14.8) % Plt Count 230 (150-400) X10^3/uL Neut % (Auto) 61.5 (50-75) % Lymph % (Auto) 20.2 L (25-40) % [place] % (Auto) 7.4 (3-14) % Eos % (Auto) 10.0 H (2-4) % Baso % (Auto) 0.9 (0-2) % Neut # (Auto) 4000 (3637-0275) /uL Lymph # (Auto) 1300 (3037-8954) /uL [place] # (Auto) 500 (0-900) /uL Eos # (Auto) 600 H (0-450) /uL Baso # (Auto) 100 (0-100) /uL Sodium 139 (137-145) mmol/L Potassium 4.4 (3.4-5.1) mmol/L Chloride 105 (98-107) mmol/L Carbon Dioxide 25 (22-32) mmol/L BUN 16 (7-17) mg/dL Creatinine 0.67 (0.52-1.04) mg/dL Estimated GFR > 60.0 (>60) mL/min BUN/Creatinine Ratio 23.9 H (6-22) Glucose 105 (80-110) mg/dL Calcium 9.4 (8.4-10.2) mg/dL Imaging Data MR Lumbar: Radiologist's Impression: PROCEDURE: MR LUMBAR SPINE WO/W CON INDICATIONS: s/p Lumbar surgery with incontinence and numbness TECHNIQUE: Noncontrast sagittal T1 spin echo and T2 fast spin echo, sagittal STIR, axial T1 and T2 fast spin echo through the lumbar spine. In cases with scoliosis, additional coronal T2 fast spin echo may be performed. After the administration of contrast, sagittal and axial T1 spin echo with fat saturation through the lumbar spine. COMPARISON: [facility], MR, MR LUMBAR SPINE WITH/WITHOUT CONTRAST, 07/28/2019, 8:04. [facility], CR, XR LUMBAR SPINE 1V, 11/29/2019, 8:15. FINDINGS: Image quality: Excellent. Alignment and curvature: There is normal bony alignment. Marrow: Marrow is of normal overall signal. No acute vertebral body compression fractures. No suspicious marrow enhancement. Spinal cord: Conus medullaris terminates at the L1 level. Visualized spinal cord demonstrates normal signal, without suspicious enhancement. Paraspinous soft tissues: No paravertebral masses or abnormal enhancement. L1-L2: Normal appearance. L2-L3: Normal appearance except for slight disc height reduction and desiccation. L3-L4: There is a mckp-xk-tdidabgu degree of degenerative disc disease and facet osteoarthritis at L3-L4, associated with facet osteoarthritis to the degree that there is slight grade 1 anterolisthesis of L3 on L4. A laminectomy appears to have been performed at this level, and dorsal to the spinal canal a small fluid collection without appreciable rim enhancement can be seen in this area measuring up to 1.8 cm AP, 2.8 cm craniocaudad and approximately 1.2 cm transverse. Early at the same axial level is a fluid collection in the subcutaneous fat measuring up to 5.9 cm craniocaudad, 1.9 cm AP and 1.9 cm transverse. Again, no abnormal rim enhancement is associated. Expected postsurgical edema is present within the superficial and deep soft tissues in the area of operative intervention. L4-L5: A right-sided laminotomy appears to have been performed at this level, with no independent adjacent fluid collection. Expected postoperative edema and enhancement in this area also is seen. L5-S1: Qgif-ed-sfznvstp degenerative disc disease, no significant spinal stenosis is found, and facet osteoarthritis produces symmetric vepm-ta-vsjjlmbr foraminal stenosis... IMPRESSION: 2 postoperative fluid collections are seen adjacent to the operative bed, 1 within the superficial soft tissues, and the 2nd in the area of L3-L4 laminectomy and L4-L5 apparent laminotomy. None of these fluid collections show rim enhancement that would indicate likelihood of infection superimposed, but early infection cannot be entirely excluded. There is no sign of recurrent disc herniation. Degenerative changes are present as discussed, at the spinal column and posterior elements as noted. Dictated by: Mayur Ryan M.D. on 12/05/2019 at 15:57 Approved by: Mayur Ryan M.D. on 12/05/2019 at 16:09 MDM Narrative Medical decision making narrative: Patient is having his new onset urinary incontinence and right leg numbness and weakness. Concern for postsurgical complication cauda equina syndrome. MRI is actually available and ready to take patient within the next 15 minutes. I called and spoke with Dr. avila who agrees with MRI. I have updated him on the MR results which he is reviewed himself. This time he states that all his postoperative no changes. Patient can follow-up with him in clinic Discharge Plan Departure Patient Disposition: Home Clinical Impression: Post-op pain Discharge Date/Time: 12/05/19 17:16 Instructions: DI for Back Strain or Sprain Activity Restrictions/Additional Instructions: *You have been diagnosed with postoperative pain *What to do: Dr. avila has reviewed your MRI at this time everything is overall reassuring and looks postoperative. You do have some inflammation which may be causing your symptoms *Continue to take medications as directed *Follow up with your primary care provider in 2-3 days *Return to ER if you should have increased weakness, change in bowel or bladder habits or any new, worsening or concerning symptoms Prescriptions: No Action lisinopril 20 mg tablet 40 mg PO QPM RF: 0 sertraline 100 mg tablet 100 mg PO DAILY RF: 0 gabapentin 300 mg capsule 1,200 mg PO QPM RF: 0 Retin-A Micro Pump 0.06 % gel with pump 1 applic TOPICAL DIRECTED RF: 0 magnesium oxide 400 mg magnesium Tablet 400 mg PO QPM RF: 0 Calcium Nvz-Lme-Tcsv 2 tab PO QPM RF: 0 Probiotic 1 cap PO QPM RF: 0 apple cider vinegar 1,200 mg 2,400 mg PO QPM RF: 0 amlodipine 5 mg Tablet 5 mg PO DAILY RF: 0 metformin 500 mg Tablet 500 mg PO DAILY RF: 0 alendronate [Fosamax] 70 mg Tablet 70 mg PO QWEEK RF: 0 levothyroxine 88 mcg Capsule 176 mcg PO BEDTIME RF: 0 aspirin [Aspirin Childrens] 81 mg Tablet,Chewable 81 mg PO DAILY RF: 0 docusate sodium [DOK] 100 mg Capsule 100 mg PO BID PRN (Reason: constipation) Qty: 30 RF: 0 hydrocodone-acetaminophen 5-325 mg Tablet 1 tab PO Q4HR PRN (Reason: Pain, Moderate (4-6)) Qty: 20 RF: 0 hydroxyzine pamoate 25 mg Capsule 25 mg PO Q4HR PRN (Reason: spasms) Qty: 20 RF: 0 Referrals: Luann Major PA-C [Primary Care Provider] - Jonel Begum MD [Physician] -
[2019-12-05 14:50] LABS: Add Manual Diff / Slide Review NO; Basophils Absolute Auto 100 /uL (0-100); Basophils Percent Auto 0.9 % (0-2); Eosinophils Absolute Auto 600 /uL (0-450); Hematocrit 37.3 % (36-46); Hemoglobin 12.3 g/dL (12.0-16.0); Lymphocytes Absolute Auto 1300 /uL (1100-4500); Lymphocytes Percent Auto 20.2 % (25-40); Mean Corpuscular HGB Conc 33.1 % (30-36); Mean Corpuscular Hemoglobin 29.5 PG (26-34); Mean Corpuscular Volume 89.1 fL (80-100); Monocytes Absolute Auto 500 /uL (0-900); Monocytes Percent Auto 7.4 % (3-14); Neutrophils Absolute Auto 4000 /uL (1500-7000); Neutrophils Percent Auto 61.5 % (50-75); Platelet Count 230 X10^3/uL (150-400); Red Blood Cell Count 4.18 X10^6/uL (4.0-5.2); Red Cell Distribution Width 14.2 % (11.6-14.8); White Blood Cell Count 6.5 X10^3/uL (4.5-11.0)
[2019-12-05] MEDS: MORPHINE 4 MG/ML INJ IV (15:03)
[2019-12-05 15:05] LABS: BUN Creatinine Ratio 23.9 (6-22); Blood Urea Nitrogen 16 mg/dL (7-17); Calcium 9.4 mg/dL (8.4-10.2); Carbon Dioxide 25 mmol/L (22-32); Chloride 105 mmol/L (98-107); Estimated Glomerular Filt Rate > 60.0 mL/min (>60); Glucose 105 mg/dL (80-110); HEMOLYSIS < 15 (0-50); Potassium 4.4 mmol/L (3.4-5.1); Sodium 139 mmol/L (137-145)
== END 2019-12-05 17:16 | disposition home or self-care (01) ==
PROVIDERS: Emergency Provider Emergency Medicine; PCP Physician Assistant
DX: G89.18 Other acute postprocedural pain (principal); Z87.39 Personal history of other diseases of the musculoskeletal system and connective tissue; R20.0 Anesthesia of skin
CPT/HCPCS: 36415; 72158; 80048; 85025; 96374; 99284; A9579; J2270

== ENCOUNTER → 2019-12-14 11:18 | Outpatient (CLI) | payer MEDICARE, OTHER, SELFPAY ==
[2019-11-29 13:11] VITALS: BMI 27.6
--- NOTE | 2019-12-14 11:29 | DI.CT.S_ITS ---
PROCEDURE: CT LUMBAR SPINE WO CON INDICATIONS: Spinal stenosis, lumbar region TECHNIQUE: Noncontrast 3 mm thick sections acquired from the T12 level to the sacrum. Sagittal and coronal reformats were constructed. For radiation dose reduction, the following was used: automated exposure control. COMPARISON: [facility], MR, MR LUMBAR SPINE WITH/WITHOUT CONTRAST, 07/28/2019, 8:04. [facility], MR, MR LUMBAR SPINE WO/W CON, 12/05/2019, 14:57. FINDINGS: Image quality: Excellent. Bones: Postsurgical changes compatible left L3-L4 and L4-L5 laminotomy is noted. Small paraspinous fluid collections at the laminotomy sites are stable in size and contour compared to prior MRI obtained December 05, 2019. There is trace L3-L4 anterolisthesis.. No acute vertebral body compression fractures. No suspicious lytic or blastic bony lesions. No pars defects. T12-L1: Disc height is normal. No central stenosis. No neural foraminal narrowing. No neural compression. L1-L2: Disc height is normal. Mild, diffuse disc bulge. No central stenosis. No neural foraminal narrowing. No neural compression. L2-L3: Disc height is normal. Mild, diffuse disc bulge. Mild bilateral facet hypertrophy. Mild narrowing of the central canal. Mild bilateral neural foraminal narrowing. No neural compression. L3-L4: Slight loss of disc height. Mild to moderate diffuse disc bulge. Fvmz-po-rnrhtfzq bilateral facet hypertrophy. Fluid collection in the left laminotomy site extends into the posterior paraspinous soft tissues and the posterior epidural space. There is a small, approximately 3 millimeter in diameter air locule in the right posterior-lateral epidural space. Moderate narrowing of the central canal. Mild to moderate bilateral neural foraminal narrowing. No definite neural compression. L4-L5: Loss of disc height. Vacuum disc phenomenon. Moderate, diffuse disc bulge. Moderate bilateral facet hypertrophy. Fluid collection at the left laminotomy site extends into the posterior paraspinous soft tissues in the posterior epidural space. Thickness and flavum hypertrophy noted. Moderate to severe narrowing of the central canal with crowding of the nerve roots of the cauda equina. Mild right and moderate left neural foraminal narrowing. L5-S1: Loss of disc height. Vacuum disc phenomenon. Mild, diffuse disc bulge. Mild to moderate right and moderate left facet hypertrophy. Mild narrowing of the central canal. Moderate to severe right and moderate to severe left neural foraminal narrowing with slight compression of the exiting left L5 nerve root. Soft tissues: No retroperitoneal masses or hematomas. Visualized aorta is normal in caliber. IMPRESSION: 1. Postsurgical changes compatible with L3-L4 and L4-L5 laminotomy. 2. Fluid collections at the L3-L4 and L4-L4 laminotomy sites with extension into the posterior paraspinous soft tissues and the posterior epidural space. Fluid collections may represent postsurgical hematoma/seroma, however infected fluid collection cannot be excluded by imaging alone. Recommend correlation with clinical and laboratory data. 3. Small air locule in the posterior-lateral right epidural space at the level of the L3-L4 laminotomy. Finding could be related to right facet osteoarthritis or could be related to infection with gas-forming organism. Recommend correlation with clinical and laboratory data. 4. Moderate to severe L4-L5 central canal narrowing with crowding of the nerve roots of the cauda equina. 5. Moderate to severe left L5-S1 neural foraminal narrowing with slight compression of the exiting left L5 nerve root. Dictated by: Jessica Gonzáles MD, PhD on 12/14/2019 at 14:10 Approved by: Jessica Gonzáles MD, PhD on 12/14/2019 at 14:23
== END ==
PROVIDERS: PCP Physician Assistant; Referring Provider Physician Assistant; Visit Provider Orthopaedic Surgery
DX: M48.062 Spinal stenosis, lumbar region with neurogenic claudication (principal)
CPT/HCPCS: 72131

== ENCOUNTER 2019-12-16 10:15 | Observation (INO) | payer MEDICARE, OTHER, SELFPAY ==
[2019-11-29 13:11] VITALS: BMI 27.6
[2019-12-14 13:55] VITALS: BMI 24.5
[2019-12-15] VITALS (17 sets, daily range): BP systolic 93–127; BP diastolic 45–91; PULSE 71–81; RESP 10–20; TEMP 36.1–36.9; O2SAT 32–99; BMI 27.2
--- NOTE | 2019-12-15 | DI.RAD.S_ITS ---
PROCEDURE: XR LUMBAR SPINE 2-3V INDICATIONS: L4-5 LAMI AND DISCECTOMY TECHNIQUE: Two views of the lumbar spine were acquired. COMPARISON: [facility], , XR LUMBAR SPINE 1V, 11/29/2019, 8:15. FINDINGS: Intraoperative fluoroscopic images demonstrate instruments at the dorsal aspect of the L4 and L5 vertebral bodies. IMPRESSION: Fluoroscopy for L4-5 laminectomy and discectomy. Dictated by: Sonia Watson M.D. on 12/15/2019 at 17:48 Approved by: Sonia Watson M.D. on 12/15/2019 at 17:49
[2019-12-15] MEDS: LACTATED RINGERS 1,000 ML 42 ML IV ×2 (14:54→17:36)
--- NOTE | 2019-12-15 16:30 | PM.PREOP ---
Pre-operative Note COVID-19 COVID-19 status: Negative Result date/Date tested (Pos, Neg/Pending): 12/14/19 Interval Note History & Physical reviewed/Exam performed by Physician: Yes Changes to H&P: Yes H&P completed within 30 days and has changed as indicated here:: Radiologist read of the CT scan indicated there was probably some epidural hematoma as well. This may be a large part of the problem and this will be decompressed at the time of surgery.
[2019-12-15] MEDS: fentaNYL 100 MCG/2 ML INJ IV ×3 (16:36→19:07)
--- NOTE | 2019-12-15 16:47 | SUR.PREOP ---
Prior to medicating pt with iv pain medication- pt c/o 8/10 back pain and restless in bed. After medicating pt with iv pain medication, pt now rating pain 6/10 and appears more comfortable at this time. pt alert, orientated and vss.
[2019-12-15] MEDS: CEFAZOLIN 2 GM/100 ML FROZ.PIGGY IV (17:00)
[2019-12-15] MEDS: BUPIVACAINE 0.25% (PF) 8 ML, fentaNYL 100 MCG INJ (17:23)
[2019-12-15] MEDS: SODIUM CHLORIDE 0.9% 1,000 ML, GENTAMICIN 80 MG IRR (17:26)
[2019-12-15] MEDS: THROMBIN (RECOMBINANT) 5,000 UNIT VIAL 5000 UNIT TOP (17:26)
--- NOTE | 2019-12-15 18:33 | P.OP_ITS ---
Operative Date/Time/Diagnoses Date of procedure: 12/15/19 Time of procedure: 18:33 Pre-op diagnosis: L4-5 disc herniation with radiculopathy Postoperative epidural hematoma Post-op diagnosis: same Procedure & Clinicians Procedure: Revision laminectomy L4-5 with diskectomy Use of microscope Placement of epidural catheter Same procedure as scheduled: Yes Indications: 64-year-old female who had a lumbar laminectomy 2 weeks ago. Several days postoperatively she began getting pain in her the right leg. She presented to clinic with profound weakness in the right leg as well. Scan showed an enlarged right-sided disc herniation at L4-5 as well as possible epidural hematoma. It was felt that she would benefit from going back in and exploration as well as diskectomy. Risks and benefits of surgery discussed and appropriate consents were obtained. Surgeon: Jonel Begum Iron Launder Operator: Ruth Naidu Anesthesia Type: General Operative Notes Findings: None Closure Type: primary Specimen(s): none sent Estimated Blood Loss (mL): 10 Procedure in detail: Patient was brought to the operating room and intubated on the table. A time-out was performed. She was rolled over to the well-padded prone position on the Bernardino table. The back was prepped and draped in standard sterile fashion. Preoperative antibiotics were given. Using fluoroscopy, a 3 cm incision was made to the well-marked right of the midline at the L4-5 level. We used Bovie to come down to and split the fascia. We then used the NuVasive MaXcess dilators with fluoroscopy and then opened our retractors. The soft tissue was cleared off with Bovie, a marker was placed, an x-ray was taken to confirm positioning. We then brought in the microscope. A combination of high-speed bur and Kerrison were used to perform a right-sided revision hemilaminotomy and hemifacetectomy. There was scar tissue from her recent surgery that we are able to gradually free up and reach across to the other side. There was no evidence of any hematoma on the opposite side. There was a large facet cyst that was cleared up. We carefully retracted the dura and exposed the disc. This was punctate and putting significant underlying pressure on the traversing L5 root. This was cleared with bipolar. A scalpel used to perform an annulotomy and a pituitary was used to perform the diskectomy. The ball probe was swept underneath the dura along the disc to make sure there were no further loose fragments. This was also placed into the disc and moved around to make sure there were no further loose fragments. We then continued working up cephalad removing the remainder of the right-sided lamina of L4 until we came to the L3-4 level. There was a mild hematoma at this region but did not appear to be causing any significant neural compression. We swept everything out with the ball probe and made sure that everything was clear. We were able to reach all up through her previous L3-4 laminectomy along both sides and then down through the L4-5 region. We could trace out the traversing L5 root as it went along the pedicle inferiorly. Everything appeared to be open. The wound was copiously irrigated. An epidural catheter was filled with 100 mcg of fentanyl and 8 mL of 0.25% Marcaine. The dura was carefully depressed under the laminotomy site and the catheter was advanced 6 cm cephalad. The retractor was removed and the fascia was closed. The epidural catheter was then injected without resistance and re moved. Superficial and skin were closed. Sterile dressing was placed. Steri- Strips were placed over her healed incision on the left. The patient was then rolled over, transferred to the stretcher, and brought to recovery room without complications. Complications: none Post-operative Condition: stable Disposition: PACU Plan for aftercare: Overnight admission. If she is doing well discharge tomorrow.
[2019-12-15] MEDS: HYDROMORPHONE 2 MG INJ IV (19:05)
[2019-12-15] MEDS: OXYCODONE/ACETAMINOPHEN 5/325 TABLET 1 TAB PO (19:44)
[2019-12-15] MEDS: LACTATED RINGERS 1,000 ML 125 ML IV (20:43)
[2019-12-15] MEDS: hydrOXYzine pamoate 25 MG CAPSULE PO (20:48)
[2019-12-15] MEDS: DOCUSATE 100 MG CAPSULE PO (20:48)
[2019-12-15] MEDS: SENNOSIDES 8.6 MG TABLET 17.2 MG PO (20:48)
[2019-12-15] MEDS: HYDROCODONE/ACET 5/325 TABLET 2 TAB PO (22:15)
[2019-12-16] MEDS: HYDROMORPHONE 0.5 MG INJ IV (00:19)
[2019-12-16] MEDS: CEFAZOLIN 2 GM/100 ML FROZ.PIGGY IV ×2 (00:22→09:25)
[2019-12-16] MEDS: HYDROCODONE/ACET 5/325 TABLET 2 TAB PO ×3 (02:31→10:23)
[2019-12-16 03:50] VITALS: BP 118/68; PULSE 70; RESP 16; TEMP 36.3; O2SAT 97
[2019-12-16 05:42] LABS: Hematocrit 35.6 % (36-46); Hemoglobin 11.9 g/dL (12.0-16.0)
--- NOTE | 2019-12-16 06:15 | PC.NURSE ---
Pt has lab orders from her neurologist. She will contact [facility] in [facility] this morning and have these orders faxed to our outpatient draw site. She will get these labs drawn today before she leaves (if she is DC'ed today). Otherwise, if she's not DC'ed today, she'd like to be drawn while she is inpatient to avoid another trip to the lab. Elaine (correctional supervisor lieutenant) will pass on this info to day shift so they are aware of this patients need to either be drawn in her room, or at our draw site.
[2019-12-16] MEDS: LEVOTHYROXINE 88 MCG TABLET 176 MCG PO (06:27)
--- NOTE | 2019-12-16 07:11 | PM.PNPO.1 ---
Subjective Subjective Date Patient Seen: 12/16/19 Time Patient Seen: 07:11 Interval history: She is doing great. She has been up and out of bed walking and no more leg pain. The back is uncomfortable but manageable with medication. Exam Vital Signs (past 8 hours): - 12/15/19 23:15 12/16/19 03:50 Temperature 96.9 F L 97.4 F L Pulse Rate 72 70 Respiratory Rate 16 16 Blood Pressure 127/77 118/68 Pulse Oximetry 95 97 Oxygen Delivery Method Room Air Oxygen Flow Rate 0 Const Orientation: alert and oriented x3 Back/Spine/Pelvis Other: CDI. 5/5 motor both lower extremities except for 4/5 left AT and 3/5 left EHL, much improved compared to preop Objective Labs Result Diagrams: 12/16/19 05:00 Labs: Laboratory Results - last 24 hr 12/16/19 05:00 Hgb 11.9 L Hct 35.6 L Assessment & Plan Post-op Postoperative Procedures: Procedures Operation Date: 12/15/19 16:45 Actual Procedures Side Surgeon p Redo L3-5 laminectomy & discectomy, hematoma removal Right Jonel Begum MD she is doing much better after her revision surgery. Plan to discharge home today after therapy. Quality VTE Deep Vein Thrombosis/Pulmonary Embolism Present on Admission: No
[2019-12-16] MEDS: DOCUSATE 100 MG CAPSULE PO (09:25)
[2019-12-16] MEDS: ASPIRIN 81 MG CHEW TAB PO (09:26)
[2019-12-16] MEDS: METFORMIN HCL 500 MG TABLET PO (09:27)
[2019-12-16] MEDS: SERTRALINE 50 MG TABLET 100 MG PO (09:27)
[2019-12-16 09:47] VITALS: BP 121/70; PULSE 79; RESP 16; TEMP 36.7; O2SAT 93
--- NOTE | 2019-12-16 09:51 | OT.IP.EVAL ---
Current Diagnoses Spinal stenosis, lumbar region with neurogenic claudication (12/16/19) Intervertebral disc disorders with radiculopathy, lumbar region (12/16/19) Other specified postprocedural states (12/16/19) Surgery Performed Operation Date: 12/15/19 16:45 Actual Procedures p Redo L3-5 laminectomy & discectomy, hematoma removal(Right) - Jonel Begum MD Past Medical History (Last Updated 11/25/19 @ 13:42 by Christina Gates RN) Anxiety (Acute) Arthritis (Acute) Back pain (Acute) Close exposure to COVID-19 virus (Acute) Hypothyroid (Acute) Non-pressure ulcer of lower extremity (Acute 2018) Peripheral neuropathy (Acute) Poor balance (Acute) Pre-diabetes (Acute) Sciatica (Acute) Spinal stenosis (Acute) Surgical History (Last Updated 12/14/19 @ 13:55 by Christina Gates RN) History of cholecystectomy (Acute) Hx of discectomy (Acute 11/29/19) Hx of lumbar discectomy (Acute) Occupational Therapy Inpatient Evaluation/Re-Eval M1 PT/OT-IP Prior Functional Status Start: 12/16/19 13:25 Freq: NEEDED Status: Active Protocol: Document 12/16/19 13:26 [facility] (Rec: 12/16/19 14:00 [facility] [id number]) Medical Review Prior Functional Status Medical History Reviewed Yes Diet/Fluid Consistency Regular,Thin Liquids Communication Independent. Activities of Daily Living and IADL's Pt states was able to do all her ADl needs with use of Lb dressing equipment. Prior Functional Level (Other details) Pt had a L3-L5 Lami lumbar surgery 2 weeks ago and now with recent L4-5 disc herniation with radiculopathy. Social History Household Members spouse Number of Floors (Floors) Two Floors Number of Stairs To Enter/Railing? 4 platform steps outside, 3 steps with bilateral rails to the porch, and 7 steps to the main living area with left rail up. Home Environment Tub/Shower Home Equipment Front Wheel Walker,Straight Cane,Bedside Commode,Long Handled Shoe Horn,Flex O Writer Operator,Sock Aid M2 OT-IP Current Condition Start: 12/16/19 13:25 Freq: Status: Active Protocol: Document 12/16/19 13:26 [facility] (Rec: 12/16/19 14:00 [facility] [id number]) Occupational Therapy Current Condition Current Condition Evaluation Date 12/16/19 Treatment Diagnosis Revision laminectomy , L4-5 with diskectomy Diagnosis Onset Date 12/15/19 Post Operative Precautions Lumbar Precautions Log Roll,No Twisting,Limit Bending,Lifting Restriction of 10 lbs,Gait Belt above Incisional Area M3 OT- IP Subjective and Pain Start: 12/16/19 13:25 Freq: Status: Active Protocol: Document 12/16/19 13:26 [facility] (Rec: 12/16/19 14:00 [facility] [id number]) OT- Subjective Occupational Therapy Visit Type Type Initial Evaluation Visit Start Time 08:42 Visit Stop Time 09:51 Total Visit Minutes 54 Notes Pt seen from [id number] and [id number]. Occupational Therapy Visit Comments Patient Comments Pt's present for the second half of OT eval. Patient/Caregiver Goals To go home. OT Pain Assessment Pain When Pain Assessed At Rest Pain Present Pain Present Pain Reported Location Medial Back Intensity 6 Scale Used Numeric (0 - 10) M4 OT- IP ADL's Start: 12/16/19 13:25 Freq: Status: Active Protocol: Document 12/16/19 13:26 [facility] (Rec: 12/16/19 14:00 [facility] [id number]) OT [id number] General Evaluation Self-Feeding Ability Independent OT ADL-Grooming General Evaluation Grooming Ability Standby Assistance Comments OT Grooming Comments Reminded pt of back precautions to spit into a cup or hinge at her hips. OT ADL-Oral Care General Eval Oral Care Ability Independent OT ADL-Dressing Comments OT Dressing Comments Pt has all LB dressing equipment at home and to assist as needed. OT ADL-Toileting General Evaluation Toileting Ability Standby Assistance Devices Toileting Assistive Devices Commode Comments OT Toileting Comments Pt able to follow back precautions for all toileting needs after initial reminder best to stand to wipe. Suggested to pt as her sleeps downstairs and often does not hear her when she calls for assist by phone or voice to have the BSC place next to the bed at night. OT ADL-Bathing Comments OT Bathing Comments Not performed. M5 OT- IP IADL's Start: 12/16/19 13:25 Freq: Status: Active Protocol: Document 12/16/19 13:26 [facility] (Rec: 12/16/19 14:00 [facility] [id number]) OT-Instrumental Activities of Daily Living Home Safety Awareness Home Safety Comments Pt a bit groggy and best for her to assist her for all needs as pt a bit impulsive and needing cues to think things through. M6 OT- IP Functional Cognition Start: 12/16/19 13:25 Freq: Status: Active Protocol: Document 12/16/19 13:26 [facility] (Rec: 12/16/19 14:00 [facility] [id number]) Cognitive Factors Limiting Selfcare Function Cognitive Ability Level of Alertness Alert Patient Orientation Name,Place,Situation Attention Span Ability Capable of Focused Attention, Capable of Sustained Attention Ability to Follow Commands Able to Follow One Step Commands Safety Awareness Decreased Ability to Apply Precautions,Underestimates Need for Assistance Cognitive Comments Cognitive Assessment Comments Pt a bit impulsive and needing her to remind her to slow down and follow her back precautions. OT- Vision and Hearing OT- Hearing Assessment OT- Hearing Assessment WFL OT- Vision Assessment Visual Acuity Glasses All The Time M7 OT- IP Mobility and Balance Start: 12/16/19 13:25 Freq: Status: Active Protocol: Document 12/16/19 13:26 [facility] (Rec: 12/16/19 14:00 [facility] [id number]) OT-Transfer Assessment Sit to and From Stand Sit to and from Stand Standby Assistance,Contact Guard Assistance Transfers Transfer Ability Standby Assistance,Contact Guard Assistance Technique Transfer Destination Chair,Toilet Transfer Technique Stand Step Pivot Devices Transfer Assistive Devices Gait Belt,Front Wheeled Walker Comments Mobility Comments CGA to stand from recliner and from close SBA to CGA with FWW. Pt able to show good understanding and safety for all back precautions, gait belt management and how to assist pt. OT- Balance Assessment Sitting Balance and Reactions Static Sitting Balance Ability Normal Dynamic Sitting Balance Ability Good Standing Balance and Reactions Static Standing Balance Ability Good M8 OT- IP Objective Assessments Start: 12/16/19 13:25 Freq: Status: Active Protocol: Document 12/16/19 13:26 [facility] (Rec: 12/16/19 14:00 [facility] [id number]) OT Gross Range of Motion Upper Extremity Range of Motion Assessment Within Functional Limits M9 OT- IP Assessment and Plan Start: 12/16/19 13:25 Freq: Status: Active Protocol: Document 12/16/19 13:26 [facility] (Rec: 12/16/19 14:00 [facility] [id number]) OT Summary Assessment and Plan Potential Rehabilitation Potential Good Analytic Complexity at Evaluation Low Summary OT Impairments Functional Mobility,Dressing, Toileting,Bathing,Toilet Transfers,Shower Transfers Progress Towards Goals Progressing Toward Goals Assessment Summary Pt low complexity and main barriers are pt a little impulsive, not able to incorporate back precautions for Adl needs, mainly just needing her to be there to remind her of back precautions and assist as needed. Pt looking to go home today. Goals Grooming Goal Independent Dressing Goal Independent Toileting Goal Independent Bathing Goal Standby Assistance Toilet Transfer Goal Independent Shower Transfer Goal Independent Patient/Caregiver Education Goal Demonstrate Post-Op Precautions,Caregiver Independent Assisting Patient Days to Meet Goals 5 Frequency of Treatment Frequency Of Treatment Once a Day Treatment Plan OT Treatment Plan ADL Training,Functional Mobility,Patient/Family Education,Discharge Planning Discharge Recommendations OT Discharge Recommendations Home with Assistance Home Equipment Needs Pt has all from prior sx. Transportation Needs at Discharge Private Vehicle
--- NOTE | 2019-12-16 10:09 | PT.IIE ---
Current Diagnoses Spinal stenosis, lumbar region with neurogenic claudication (12/16/19) Intervertebral disc disorders with radiculopathy, lumbar region (12/16/19) Other specified postprocedural states (12/16/19) Surgery Performed Operation Date: 12/15/19 16:45 Actual Procedures p Redo L3-5 laminectomy & discectomy, hematoma removal(Right) - Jonel Begum MD Surgical History (Last Updated 12/14/19 @ 13:55 by Christina Gates RN) History of cholecystectomy (Acute) Hx of discectomy (Acute 11/29/19) Hx of lumbar discectomy (Acute) Medical History (Last Updated 11/25/19 @ 13:42 by Christina Gates RN) Anxiety (Acute) Arthritis (Acute) Back pain (Acute) Close exposure to COVID-19 virus (Acute) Hypothyroid (Acute) Non-pressure ulcer of lower extremity (Acute 2018) Peripheral neuropathy (Acute) Poor balance (Acute) Pre-diabetes (Acute) Sciatica (Acute) Spinal stenosis (Acute) Physical Therapy Inpatient Evaluation/Re-Eval M1 PT/OT-IP Prior Functional Status Start: 12/16/19 13:25 Freq: NEEDED Status: Active Protocol: Document 12/16/19 13:26 [facility] (Rec: 12/16/19 14:00 [facility] [id number]) Medical Review Prior Functional Status Medical History Reviewed Yes Diet/Fluid Consistency Regular,Thin Liquids Communication Independent. Activities of Daily Living and IADL's Pt states was able to do all her ADl needs with use of Lb dresign equipment. Prior Functional Level (Other details) Pt had a L3-L5 Lami lumbar surgery 2 weeks ago and now with recent L4-5 disc herniation with radiculopathy. Social History Household Members spouse Number of Floors (Floors) Two Floors Number of Stairs To Enter/Railing? 4 platform steps outside, 3 steps with bilateral rails to the porch, and 7 steps to the main living area with left rail up. Home Environment Tub/Shower Home Equipment Front Wheel Walker,Straight Cane,Bedside Commode,Long Handled Shoe Horn,Roundhouse Supervisor,Sock Aid M1 PT/OT-IP Prior Functional Status Start: 12/16/19 13:42 Freq: NEEDED Status: Active Protocol: Document 12/16/19 10:09 [facility] (Rec: 12/16/19 14:06 AB [id number]) Medical Review Prior Functional Status Medical History Reviewed Yes Communication able to make needs known Mobility and Gait pt stated that she is modified independent with all mobilities and ambualtion using FWW but uses walking sticks for outdoor mobility Social History Household Members spouse Living Arrangements House Number of Floors (Floors) Two Floors Number of Stairs To Enter/Railing? 4 platform steps + 3 steps with B rails to enter the house 8 steps with L rail to get to main level living area Home Equipment Front Wheel Walker,Straight Cane Additional Social History Comment pt had back surgery ~ 2 weeks ago and caregiver training was conducted at that time. M2 PT-IP Current Condition Start: 12/16/19 13:42 Freq: NEEDED Status: Active Protocol: Document 12/16/19 10:09 [facility] (Rec: 12/16/19 14:06 [id number]) Physical Therapy Current Condition Current Condition Evaluation Date 12/16/19 Treatment Diagnosis s/p L4-5 lami rev; difficulty in walking Onset Date 12/15/19 Precautions Lumbar Precautions Log Roll,No Twisting,Limit Bending,Lifting Restriction of 10 lbs,Gait Belt above Incisional Area M3 PT-IP Subjective Start: 12/16/19 13:42 Freq: NEEDED Status: Active Protocol: Document 12/16/19 10:09 [facility] (Rec: 12/16/19 14:06 [id number]) Subjective Physical Therapy Visit Type Type Initial Evaluation Visit Start Time 10:09 Visit Stop Time 10:58 Total Visit Minutes 49 Number of MEDICAL FRONT DESK SPECIALIST Visits 0 Physical Therapy Visit Comments Patient Comments pt is agreeable to do PT Therapy Pain Assessment Pain When Pain Assessed At Rest Pain Present Pain Present Pain Reported Location Medial Back Intensity 6 Scale Used Numeric (0 - 10) Pain Behaviors Guarding Pain Management Techniques Distraction,Modification of Treatment,Timing of Activity with Medications M4 PT-IP Mobility and Gait Start: 12/16/19 13:42 Freq: NEEDED Status: Active Protocol: Document 12/16/19 10:09 [facility] (Rec: 12/16/19 14:06 [id number]) PT-Bed Mobility Assessment Rolling Type of Rolling Log Rolling Level of Assist Standby Assistance Supine to Sit Supine to Sit Standby Assistance Sit to Supine Sit to Supine Standby Assistance PT-Transfer Assessment Sit to and From Stand Sit to and from Stand Contact Guard Assistance, Minimal Assistance,1 Person Assistance,Use of Upper Extremities Equipment Transfer Assistive Device Gait Belt,Front Wheeled Walker Orthotic/Prosthetic Devices or Brace: No Transfers Transfer Destination Bed,Chair Transfer Technique Stand Step Pivot Transfer Ability Level of Assist Contact Guard Assistance,1 Person Assistance,Use of Upper Extremities Comments Mobility Comments reviewed back precautions and pt was able to recall. completed sit to stand min A and cues. educated on techniques and completed sit<> stand x 3 reps CGA to min A and cues. completed step transfer to bed using FWW CGA. completed log roll supine <> sit SBA. Spouse arrived. assisted pt with sit to stand and ambulation using FWW ~ 100 ft. completed up/down steps and spouse was able to assist pt. pt ambulated back towards the room ~ 100 ft using FWW. spouse was able to assist. pt requested to use the toilet and spouse assisted pt. pt agreed to sit up on chair. positioned on chair. call light and table placed within reach. Gait Assessment Gait Gait Assistance Required: Contact Guard Assist Distance (Feet) 100 Able to Maintain Weight Bearing Status Yes During Gait Assistive Devices Assistive Device Gait Belt,Front Wheeled Walker Orthotic/Prosthetic Devices or Brace: No Gait Deviations General Gait Pattern Antalgic,Decreased Stride Length,Decreased Feet Clearance Factors Limiting Gait Function Factors Limiting Gait Function Decreased Activity Tolerance, Decreased Strength,Difficulty Following Directions,Limited Range of Motion,Pain,Poor Balance,Poor Safety Awareness Stair Climbing Assessment Evaluation Level of Assist On Stairs Minimal Assistance,1 Person Assistance Devices Stair Climbing Assistive Devices Front Wheel Walker,Left Railing Technique/Endurance Stair Climbing Direction Ascend and Descend Stair Climbing Technique Step to Step Number of Steps Climbed 3 Query Text: Stair Climbing Set # Repetitions (reps) 1 Comments Stair Climbing Comments completed platform step using FWW min A and spouse was able to assist. completed up/down steps using L rail and spouse was able to assist pt. PT-Balance Assessment Sitting Balance and Reactions Static Sitting Balance Ability Good Dynamic Sitting Balance Ability Good Standing Balance and Reactions Static Standing Balance Ability Fair Dynamic Standing Balance Ability Fair Device Used FWW M5 PT-IP Objective Assessments Start: 12/16/19 13:42 Freq: NEEDED Status: Active Protocol: Document 12/16/19 10:09 [facility] (Rec: 12/16/19 14:06 AB [id number]) Orientation Orientation/Cognition Level of Alertness Alert Orientation Name,Place,Situation Language Function Ability No Deficits Noted Safety Awareness Decreased Safety Awareness Memory Description Short Term Impaired Gross Range of Motion Lower Extremity ROM Assessment Within Functional Limits Strength Lower Extremity Strength Assessment Bilaterally Impaired Comments Strength Comments LLE 4-/5 RLE 3+/5 Coordination Assessment Gross Coordination Gross Coordination WNL Sensation Assessment Sensation Light Touch Impaired Proprioception (Position) Impaired Comments Sensation Comments bilateral LE neuropathy from knee down to feet Muscle Tone Muscle Tone WNL Yes M6 PT-IP Treatment Start: 12/16/19 13:42 Freq: NEEDED Status: Active Protocol: Document 12/16/19 10:09 [facility] (Rec: 12/16/19 14:06 AB [id number]) Physical Therapy Treatment Education Education Provided Precautions,Weight Bearing Status,Safety M7 PT-IP Assessment and Plan Start: 12/16/19 13:42 Freq: NEEDED Status: Active Protocol: Document 12/16/19 10:09 AB (Rec: 12/16/19 14:06 AB [id number]) PT Summary Assessment and Plan Potential Rehabilitation Potential Good Status of Condition at Evaluation Stable Summary Impairments Pain,ROM,Strength,Balance, Coordination,Sensation,Tone, Cognition,Bed Mobility, Transfers,Gait,Activity Tolerance Progress Towards Goals Safe For Discharge Assessment Summary pt requiring CGA to min A with mobility and spouse was able to assist pt safely. pt plans to go home today. Goals Bed Mobility Goal Independent Transfer Goal Independent,Front Wheeled Walker Gait Goal Independent,Front Wheel Walker Gait Distance 250 Other Goals up/down 4 platform steps using FWW SBA up/down 8 steps using L rail SBA Days to Meet Goals 3 Frequency of Treatment Frequency Of Treatment Twice a Day Treatment Plan Physical Therapy Treatment Plan Bed Mobility Training,Transfer Training,Gait Training, Therapeutic Exercise,Balance Retraining,Post Op Education, Discharge Planning,Hot or Cold Pack,Neuromuscular Re-ed Recommendations To Nursing Amount of Assist Needed 1 Person Assist Discharge Recommendations PT Discharge Recommendations Home with Assistance Transportation Needs at Discharge Private Vehicle
--- NOTE | 2019-12-16 12:03 | PC.NURSE ---
Day shift: Pt left unit via WC to car driven by her spouse. KST OPERATORDeb Williamson was with them. Paperwork signed and all questions answered. Pt has all personal belongings. She has all MD scripts already filled at home from previous procedure. Dressing on back CDI. Pt supplied w/ 2ea Coversites if needed. Pt and her spouse instructed on how to change the dressing. Pt will call herself to make f/u appointment. Was uinable to get labs drawn b/c orders from her rik MD never made it to [facility] via fax or otherwise. This television writer talked with microbiology lab analyst and he said he had no orders for Pt faxed or otherwise. Pt happy to be going back home today.
--- NOTE | 2019-12-16 14:18 | CM.IDA ---
Initial DCP Assessment Note Pt is a 64 yo female, resident of [place], now POD#1 from spinal surgery w/ Dr Begum PCP: Luann Major Payer: ARTHUR/Renaldo Reviewed chart, pt discussed in multidisciplinary rounds this morning. Therapy has cleared pt for return home w/family to assist and pt has planned for home, DC order from Ortho has already been initiated this morning. Patient in very good spirits today and eager to return home w/supportive spouse. RITU Moon
== END 2019-12-16 12:06 | disposition home or self-care (01) ==
LOC: OR 11:15 → AC 11:15
PROVIDERS: Admitting Provider Orthopaedic Surgery; PCP Physician Assistant; Referring Provider Orthopaedic Surgery; Visit Provider Orthopaedic Surgery
PROC: (CPT 63042; principal; 2019-12-15 16:45)
DX: M51.16 Intervertebral disc disorders with radiculopathy, lumbar region (principal); M48.062 Spinal stenosis, lumbar region with neurogenic claudication; Z98.890 Other specified postprocedural states; I10 Essential (primary) hypertension; M96.840 Postprocedural hematoma of a musculoskeletal structure following a musculoskeletal system procedure
CPT/HCPCS: 63042; 36415; 72100; 76000; 85014; 85018; 97161; 97165; 97530; 97535; G0378; J0330; J0690; J1100; J1170; J2405; J2704; J3010

== ENCOUNTER → 2020-01-05 13:50 | Outpatient (CLI) | payer MEDICARE, OTHER, SELFPAY ==
[2019-12-15 20:10] VITALS: BMI 27.2
--- NOTE | 2020-01-05 13:55 | DI.CT.S_ITS ---
PROCEDURE: CT LUMBAR SPINE WO CON INDICATIONS: DISC DISORDER TECHNIQUE: Noncontrast 3 mm thick sections acquired from the T12 level to the sacrum. Sagittal and coronal reformats were constructed. For radiation dose reduction, the following was used: automated exposure control. COMPARISON: [facility], CR, XR LUMBAR SPINE 2-3V, 12/15/2019, 17:27. [facility], CT, CT LUMBAR SPINE WO CON, 12/14/2019, 11:22. FINDINGS: Image quality: Excellent. Bones: There is normal bony alignment. No acute vertebral body compression fractures. No suspicious lytic or blastic bony lesions. Postsurgical changes are again noted consistent with left L3-4 and left L4-5 laminotomy previously present. A new right-sided L4-L5 laminotomy has been performed between the 2 examinations. T12-L1: No significant degenerative change. No spinal or foraminal stenosis. L1-L2: No significant degenerative change, no spinal or foraminal stenosis found. L2-L3: No change, no appreciable spinal or foraminal stenosis is seen. L3-L4: Left-sided laminotomy, no abnormal fluid collection now seen. Mild disc height reduction as was previously the case. Noncontrast study, mild concentric spinal stenosis appears present related to facet hyperostosis. Slight posterior disc bulge. No disc herniation found. No significant foraminal stenosis. L4-L5: Moderate disc height reduction, previously the case. Bilateral laminotomies. No abnormal fluid collection appears present. Facet hyperostosis is again noted with mild foraminal stenosis. No definite spinal stenosis seen but quality of visualization is somewhat limited by absence of contrast. L5-S1: Moderate disc height reduction, moderately severe facet osteoarthritis with hyperostosis and ligamentum flavum hypertrophy significantly narrowing the neural foramen bilaterally symmetric, previously the case. No disc herniation found. Soft tissues: No retroperitoneal masses or hematomas. Visualized aorta is normal in caliber. IMPRESSION: Postsurgical changes as discussed including now bilateral laminotomies at L4-5. No operative complication seen, no abnormal fluid collection present. Previously present degenerative changes are again noted but no disc herniation appears to have developed. No subluxation is present. A definite new source of back pain is not seen. Dictated by: Mayur Ryan M.D. on 01/05/2020 at 15:24 Approved by: Mayur Ryan M.D. on 01/05/2020 at 15:59
== END ==
PROVIDERS: PCP Physician Assistant; Referring Provider Orthopaedic Surgery; Visit Provider Orthopaedic Surgery
DX: M51.16 Intervertebral disc disorders with radiculopathy, lumbar region (principal); M47.27 Other spondylosis with radiculopathy, lumbosacral region
CPT/HCPCS: 72131

== ENCOUNTER → 2020-03-21 08:07 | Outpatient (CLI) | payer MEDICARE, OTHER, SELFPAY ==
[2019-12-15 20:10] VITALS: BMI 27.2
--- NOTE | 2020-03-21 | DI.MRI.S_ITS ---
PROCEDURE: MR CERVICAL SPINE WO CON INDICATIONS: BLE DROPPED FOOT TECHNIQUE: Noncontrast sagittal T1 spin echo and T2 fast spin echo, sagittal STIR, foraminal oblique sagittal T2 fast spin echo, and axial gradient echo or T2 fast spin echo through the cervical spine. COMPARISON: [facility], MR, MR BRAIN WITH/WITHOUT CONTRAST, 07/28/2019, 8:04. [facility], MR, MR LUMBAR SPINE WO/W CON, 03/21/2020, 8:28. [facility], MR, MR THORACIC SPINE WO CON, 03/21/2020, 8:28. FINDINGS: Image quality: This examination is limited by involuntary motion artifact. Alignment and Curvature: There is normal bony alignment. Bone Marrow: Marrow demonstrates normal overall signal. Spinal Cord: Visualized spinal cord has normal size. There is a syrinx seen involving the lower cervical spine, which is centered at the C6-C7 level measures 2.2 cm craniocaudal, with a maximum transverse extent 7 mm and a maximum AP extent of 4 mm. No cerebellar tonsillar herniation. Paraspinous Soft Tissues: No paravertebral masses. Prevertebral soft tissues are normal in thickness. C2-C3: The disc height is well-preserved. Loss of disc signal is seen at this level. A mild degree of generalized disc osteophyte complex is seen. There is a mild central disc osteophyte protrusion seen. Mild bilateral neural foraminal narrowing is seen. Mild central canal narrowing is seen. C3-C4: The disc height is relatively well preserved. Loss of disc signal is seen. Mild disc osteophyte complex is seen, which is eccentric to the right. Mild facet joint hypertrophy is seen. There is at least moderate right-sided and moderate left-sided neural foraminal narrowing seen. Mild to moderate central canal narrowing is seen. C4-C5: Moderate loss of disc height is seen. Loss of disc signal is seen. Moderate generalized disc osteophyte complex is seen. There is a central disc osteophyte protrusion seen. Uncovertebral joint hypertrophy is seen at this level. Moderate facet joint hypertrophy is seen. There is moderate to severe bilateral neural foraminal narrowing seen, right worse than left. Moderate central canal narrowing is seen. There is associated mass effect upon the ventral spinal cord. C5-C6: Moderate to severe loss of disc height and disc signal can be seen. At least moderate disc osteophyte complex is seen, with a central disc osteophyte protrusion. Uncovertebral joint hypertrophy is seen at this level. Moderate facet joint hypertrophy is seen. Moderate to severe bilateral neural foraminal narrowing can be seen, right worse than left. Moderate central canal narrowing is seen. There is associated mass effect upon the ventral spinal cord. C6-C7: Moderate loss of disc height is seen. Loss of disc signal is seen. Moderate disc osteophyte complex is seen, which is eccentric to the right side. Mild to moderate facet hypertrophy can be seen. There is moderate to severe right-sided and at least moderate left-sided neural foraminal narrowing seen. Mild central canal narrowing is seen. C7-T1: The disc height is well-preserved. Loss of disc signal is seen at this level. A mild degree of generalized disc osteophyte complex is seen. Minimal bilateral neural foraminal narrowing can be seen. No significant central canal narrowing is seen. IMPRESSION: A lower cervical spine syrinx is seen. Although no mass is suspected based on these images, please consider a follow-up contrast-enhanced cervical spine MRI to evaluate for a potential underlying mass. Cervical spine degenerative changes are seen, which are most prominent inferiorly. Dictated by: Patric June M.D. on 03/21/2020 at 12:41 Approved by: Patric June M.D. on 03/21/2020 at 12:46
--- NOTE | 2020-03-21 | DI.MRI.S_ITS ---
PROCEDURE: MR LUMBAR SPINE WO/W CON INDICATIONS: BLE DROPPED FOOT TECHNIQUE: Noncontrast sagittal T1 spin echo and T2 fast spin echo, sagittal STIR, axial T1 and T2 fast spin echo through the lumbar spine. In cases with scoliosis, additional coronal T2 fast spin echo may be performed. After the administration of contrast, sagittal and axial T1 spin echo with fat saturation through the lumbar spine. COMPARISON: [facility], MR, MR LUMBAR SPINE WITH/WITHOUT CONTRAST, 07/28/2019, 8:04. [facility], MR, MR CERVICAL SPINE WO CON, 03/21/2020, 8:28. [facility], MR, MR THORACIC SPINE WO CON, 03/21/2020, 8:28. [facility], CT, CT LUMBAR SPINE WO CON, 01/05/2020, 13:53. [facility], CR, XR LUMBAR SPINE 2-3V, 12/15/2019, 17:27. [facility], CT, CT LUMBAR SPINE WO CON, 12/14/2019, 11:22. [facility], MR, MR LUMBAR SPINE WO/W CON, 12/05/2019, 14:57. FINDINGS: Image quality: This examination is limited by involuntary motion artifact. Alignment and curvature: There is mild anterolisthesis seen at the L3-L4 level. Marrow: Marrow is of normal overall signal. No acute vertebral body compression fractures. No suspicious marrow enhancement. Spinal cord: Conus medullaris terminates at the L1 level. Visualized spinal cord demonstrates normal signal, without suspicious enhancement. Paraspinous soft tissues: No paravertebral masses are seen. Within the postoperative bed, there is generalized edema and fluid seen. The previously seen postoperative fluid collections have largely resolved since the prior MRI. T12-L1: Normal appearance. L1-L2: Normal appearance. L2-L3: No significant abnormality is seen L3-L4: Moderate loss of disc height is seen. Loss of disc signal is seen. Moderate generalized disc bulge is seen. Moderate to prominent facet hypertrophy is seen. There has been removal of portions of the posterior elements. There is moderate right-sided and lbxz-wq-wydjvvev left-sided neural foraminal narrowing seen. Mild central canal narrowing is seen. The previously seen fluid posterior to the thecal sac has resolved. L4-L5: Mild to moderate loss of disc height and disc signal can be seen. Moderate disc bulge is seen, with a central disc protrusion. Endplate edema and enhancement can be seen, as on series 11, image 9. Minimal enhancement can be seen along the disc level itself. Moderate to prominent facet hypertrophy is seen. There has been removal of portions of the posterior elements. There is at least moderate bilateral neural foraminal narrowing seen, right worse than left. There is a degree of compression seen upon the exiting nerve roots. Mild central canal narrowing is seen. The postoperative enhancement and postoperative fluid at this level posteriorly have improved compared to the prior study. The amount of enhancement of the endplates is mildly more intense than on the prior examination. L5-S1: At least moderate loss of disc height and disc signal can be seen. Moderate disc bulge is seen, with a central/right disc protrusion. At least moderate facet hypertrophy is seen. There has been removal of portions of the posterior elements. Moderate bilateral neural foraminal narrowing is seen. Minimal central canal narrowing is seen. When comparison is made with the prior examination, these findings are similar. IMPRESSION: No imaging explanation is found for this patient's presenting symptoms. Lower lumbar spine postoperative changes are seen, with removal of portions of the posterior elements. The previously seen postoperative enhancement and fluid within the postoperative bed posteriorly have improved compared to the prior MRI. No suspicious fluid collections are seen. Endplate edema and enhancement can be seen involving the L4-L5 level. The amount of enhancement has mildly increased compared to the prior. This is felt most likely to be related to degenerative enhancement. However, differential diagnosis would also include discitis/osteomyelitis, yet the this is considered to be less likely. Please consider an additional short-term follow-up MRI (without and with contrast) for further evaluation in 6-8 weeks. Dictated by: Patric June M.D. on 03/21/2020 at 11:32 Approved by: Patric June M.D. on 03/21/2020 at 11:40
--- NOTE | 2020-03-21 | DI.MRI.S_ITS ---
PROCEDURE: MR THORACIC SPINE WO CON INDICATIONS: BLE DROPPED FOOT TECHNIQUE: Noncontrast sagittal T1 spine echo and T2 fast spin echo, sagittal STIR, axial T1 and T2 fast spin echo through the thoracic spine. COMPARISON: [facility], MR, MR LUMBAR SPINE WO/W CON, 03/21/2020, 8:28. [facility], MR, MR CERVICAL SPINE WO CON, 03/21/2020, 8:28. FINDINGS: Image quality: Excellent. Alignment and Curvature: Accentuated thoracic kyphosis is seen. No focal AP alignment abnormality is seen. Mild dextroconvex scoliotic curvature is seen. Bone Marrow: Marrow is of normal overall signal. No acute vertebral body compression fractures. Spinal Cord: Mild areas of syrinx are seen, which are overall most prominent involving the lower cervical spine. Paraspinous Soft Tissues: No paravertebral masses. Miscellaneous: At the T8-T9 level, mild loss of disc height is seen. There is a central disc protrusion. Mild central canal narrowing is seen, without significant mass effect upon the ventral spinal cord. No neural foraminal narrowing is seen. At T9-T10, there is mild loss of disc height. There is a central disc protrusion seen, with mild central canal narrowing. No significant mass effect is seen upon the ventral spinal cord. No significant neural foraminal narrowing can be seen.. At T10-T11, there is a mild central/right disc protrusion, without significant central canal or neural foraminal narrowing. Bridging endplate osteophytes are seen. Milder degenerative changes are seen elsewhere. IMPRESSION: Mild areas of syrinx can be seen throughout the visualized spinal cord, which is worst within the lower cervical spine. Degenerative changes are seen throughout, which are most prominent involving the lower thoracic spine Dictated by: Patric June M.D. on 03/21/2020 at 12:36 Approved by: Patric June M.D. on 03/21/2020 at 12:40
== END ==
PROVIDERS: PCP Physician Assistant; Referring Provider Psychiatry & Neurology Neurology; Visit Provider Orthopaedic Surgery
DX: M21.372 Foot drop, left foot (principal); M21.371 Foot drop, right foot; R20.2 Paresthesia of skin; M48.07 Spinal stenosis, lumbosacral region; M48.061 Spinal stenosis, lumbar region without neurogenic claudication; M51.26 Other intervertebral disc displacement, lumbar region; M51.27 Other intervertebral disc displacement, lumbosacral region; M51.24 Other intervertebral disc displacement, thoracic region; M47.814 Spondylosis without myelopathy or radiculopathy, thoracic region; M50.21 Other cervical disc displacement, high cervical region; M47.812 Spondylosis without myelopathy or radiculopathy, cervical region
CPT/HCPCS: 72141; 72146; 72158

== ENCOUNTER 2023-12-28 13:25 | Emergency (ER) | payer MEDICARE, OTHER, SELFPAY ==
[2019-12-15 20:10] VITALS: BMI 27.2
[2023-12-28] VITALS (11 sets, daily range): BP systolic 147–174; BP diastolic 82–110; PULSE 69–87; RESP 16–36; TEMP 36.6; O2SAT 85–96; BMI 27.8
--- NOTE | 2023-12-28 13:52 | DI.RAD.S_ITS ---
PROCEDURE: XR CHEST 1V INDICATIONS: Chest pain TECHNIQUE: One view of the chest was acquired. COMPARISON: None. FINDINGS: Surgical changes and devices: None. Lungs and pleura: Lungs are clear. No pleural effusions or pneumothorax. Mediastinum: Mediastinal contours appear normal. Heart size is normal. Bones and chest wall: No suspicious bony lesions. Overlying soft tissues appear unremarkable. IMPRESSION: No acute pulmonary process. Dictated by: Mireya Good M.D. on 12/28/2023 at 15:13 Approved by: Mireya Good M.D. on 12/28/2023 at 15:13
[2023-12-28 14:18] LABS: Add Manual Diff / Slide Review NO; Basophils Absolute Auto 100 /uL (0-100); Basophils Percent Auto 1.2 % (0-2); Eosinophils Absolute Auto 100 /uL (0-450); Eosinophils Percent Auto 2.6 % (2-4); Hematocrit 41.4 % (36-46); Hemoglobin 13.9 g/dL (12.0-16.0); Lymphocytes Absolute Auto 1300 /uL (1100-4500); Lymphocytes Percent Auto 23.8 % (25-40); Mean Corpuscular HGB Conc 33.6 % (30-36); Mean Corpuscular Volume 92.2 fL (80-100); Monocytes Absolute Auto 300 /uL (0-900); Monocytes Percent Auto 6.1 % (3-14); Neutrophils Absolute Auto 3700 /uL (1500-7000); Neutrophils Percent Auto 66.3 % (50-75); Platelet Count 283 X10^3/uL (150-400); Red Blood Cell Count 4.49 X10^6/uL (4.0-5.2); Red Cell Distribution Width 13.5 % (11.6-14.8); White Blood Cell Count 5.6 X10^3/uL (4.5-11.0)
[2023-12-28 14:31] LABS: Alanine Aminotransferase 24 IU/L (<35); Albumin 4.6 g/dL (3.5-5.0); Albumin Globulin Ratio 1.4 (1.0-2.8); Alkaline Phosphatase 97 U/L (38-126); Aspartate Aminotransferase 31 IU/L (14-36); BUN Creatinine Ratio 25.4 (6-22); Bilirubin Total 0.6 mg/dL (0.2-1.3); Blood Urea Nitrogen 17 mg/dL (7-17); Calcium 9.4 mg/dL (8.4-10.2); Carbon Dioxide 25 mmol/L (22-32); Chloride 107 mmol/L (98-107); Creatine Kinase 158 U/L (30-135); Estimated Glomerular Filt Rate > 60 mL/min (>60); Globulin 3.3 g/dL (1.7-4.1); Glucose 123 mg/dL (80-110); HEMOLYSIS < 15 (0-50); Lipase 180 U/L (23-300); Sodium 140 mmol/L (137-145); Total Protein 7.9 g/dL (6.3-8.2)
[2023-12-28 14:43] LABS: Troponin I < 0.012 ng/mL (0.01-0.034)
--- NOTE | 2023-12-28 14:54 | ED_ITS ---
HPI - Headache General Chief Complaint: Headache Stated Complaint: high bp, headache, getting worse Time Seen by Provider: 12/28/23 13:36 Source: patient Mode of arrival: Ambulatory Limitations: no limitations History of Present Illness HPI Narrative: Patient is a 68-year-old female. Has a history of high blood pressure. Takes 40 mg of lisinopril. For the past week to 10 days she has had elevations in her blood pressure and also a headache. The headache has been consistent. It was on the top of her head and in both of her temples. It was a pounding headache. She has been taking her blood pressure medicines. She will went to an outside facility at the end of last week. She reported to have a head CT that she states was normal. She did have improvement/resolution of her headache after medications that she received there prior to discharge but states that her headache is now back. At 1 point over the past week she did have left-sided chest discomfort that was sharp lasting for seconds. She was not had anything since then. She has had some shortness of breath. No fevers. No cough. No abdominal pain. No lower extremity swelling. Related Data Home Medications Medication Instructions Recorded Confirmed Calcium Edv-Xxq-Owqu 2 tab PO QPM 12/17/18 12/15/19 gabapentin 300 mg capsule 1,200 mg PO QPM 12/17/18 12/15/19 lisinopril 20 mg tablet 40 mg PO QPM 12/17/18 12/15/19 magnesium oxide 400 mg PO QPM 12/17/18 12/15/19 sertraline 100 mg tablet 100 mg PO DAILY 12/17/18 12/15/19 tretinoin microspheres 0.06 % 1 applic topical DIRECTED 12/17/18 12/15/19 topical gel with pump (Retin-A Micro Pump) alendronate 70 mg tablet (Fosamax) 70 mg PO QWEEK 11/25/19 12/15/19 amlodipine 5 mg tablet 5 mg PO DAILY 11/25/19 12/15/19 levothyroxine 88 mcg capsule 88 mcg PO BEDTIME 11/25/19 12/15/19 metformin 500 mg tablet 500 mg PO DAILY 11/25/19 12/15/19 aspirin 81 mg chewable tablet 81 mg PO DAILY 11/29/19 12/15/19 (Aspirin Childrens) Previous Rx's Medication Instructions Recorded docusate sodium 100 mg capsule 100 mg PO BID PRN constipation #30 11/30/19 (DOK) caps hydrocodone 5 mg-acetaminophen 325 1 tab PO Q4HR PRN Pain, Moderate 11/30/19 mg tablet (4-6) #20 tabs hydroxyzine pamoate 25 mg capsule 25 mg PO Q4HR PRN spasms #20 caps 11/30/19 vboooupasn-rwyowenidvytq-azyjqnqr 1 cap PO Q4-6H PRN pain #20 caps 12/28/23 50 mg-300 mg-40 mg capsule (Fioricet) Allergies Allergy/AdvReac Type Severity Reaction Status Date / Time erythromycin base Allergy Verified 12/15/19 14:57 Review of Systems Review of Systems ROS Unobtainable: All systems reviewed & are unremarkable except as noted in HPI and below Patient History Medical History Close exposure to COVID-19 virus Pre-diabetes Non-pressure ulcer of lower extremity (2018) Anxiety Peripheral neuropathy Sciatica Poor balance Spinal stenosis Arthritis Back pain Hypothyroid Surgical History (Updated 12/14/19 @ 13:55 by Christina Gates RN) Hx of discectomy (11/29/19) Hx of lumbar discectomy History of cholecystectomy Social History marital status: unknown household members: spouse Smoking Status: Former smoker alcohol intake: never Smoking Status: Former smoker alcohol intake frequency: holidays/special occasions only Alcohol type: wine Substance Use Type: does not use Exam Initial Vital Signs Initial Vital Signs: Vital Signs Pulse Oximetry 87 L 12/28/23 13:31 Const General: cooperative, comfortable and No ill appearing [facility] Head: normal to inspection and normocephalic Resp Effort & Inspection: normal respiratory effort Auscultation: clear to auscultation bilaterally Cardio Rate: regular rate Rhythm: regular rhythm GI Inspection: normal to inspection and non-distended Skin General: no rashes or lesions noted Neuro General: patient alert, patient awake, patient oriented x3 and moves all extremities Extrem General: normal to inspection and capillary refill normal Course Orders Ordered: ED Orders 12/28/23 13:52 XR chest 1V Stat EKG-12 Lead Stat 12/28/23 14:00 Complete Blood Count AUTO DIFF Stat Comprehensive Metabolic Panel Stat Lipase Stat Troponin & CK Cardiac Panel Stat 12/28/23 14:09 Covid-19 + FLU A/B + RSV - PCR Stat Discontinued Medications Acetaminophen/Butalbital/Caffeine (Butalb/Apap/Caffeine 50/325/40 Tablet) 1 each PO NOW ONE Stop: 12/28/23 16:14 Acetaminophen (Ofirmev) 1,000 mg in 100 mls @ 400 mls/hr IV NOW ONE Stop: 12/28/23 15:15 Last Infusion: 12/28/23 15:48 Dose: Infused Documented By: Admin: 12/28/23 15:14 Dose: 400 mls/hr Documented By: NABIL Ketorolac Tromethamine (Ketorolac 30 Mg/Ml Vial) 15 mg IV NOW ONE Stop: 12/28/23 15:02 Last Admin: 12/28/23 15:14 Dose: 15 mg Documented By: NABIL Vital Signs Vital signs: Vital Signs - 8 hr 12/28/23 13:31 12/28/23 13:33 12/28/23 13:41 Temperature 97.9 F Pulse Rate 80 Respiratory Rate 18 Blood Pressure 174/99 H 174/99 H Pulse Oximetry 87 L 96 Oxygen Delivery Method Room Air 12/28/23 14:05 12/28/23 14:30 12/28/23 14:32 Temperature Pulse Rate 87 76 Respiratory Rate 36 H Blood Pressure 151/82 H Pulse Oximetry 85 L 94 Oxygen Delivery Method 12/28/23 14:32 12/28/23 15:00 12/28/23 15:00 Temperature Pulse Rate 76 76 Respiratory Rate 26 H 30 H Blood Pressure 166/94 H Pulse Oximetry 95 95 Oxygen Delivery Method MDM - Headache Medical Records Attestation: I reviewed the patient's medical records. Lab Data Attestation: I reviewed the patient's lab results. 12/28/23 14:00 12/28/23 14:00 Labs: Lab Results 12/28/23 12/28/23 Range/Units 14:00 14:09 WBC 5.6 (4.5-11.0) X10^3/uL RBC 4.49 (4.0-5.2) X10^6/uL Hgb 13.9 (12.0-16.0) g/dL Hct 41.4 (36-46) % MCV 92.2 (80-100) fL MCH 31.0 (26-34) PG MCHC 33.6 (30-36) % RDW 13.5 (11.6-14.8) % Plt Count 283 (150-400) X10^3/uL Neut % (Auto) 66.3 (50-75) % Lymph % (Auto) 23.8 L (25-40) % Cottle % (Auto) 6.1 (3-14) % Eos % (Auto) 2.6 (2-4) % Baso % (Auto) 1.2 (0-2) % Neut # (Auto) 3700 (0332-5686) /uL Lymph # (Auto) 1300 (0748-2783) /uL Cottle # (Auto) 300 (0-900) /uL Eos # (Auto) 100 (0-450) /uL Baso # (Auto) 100 (0-100) /uL Sodium 140 (137-145) mmol/L Potassium 4.0 (3.4-5.1) mmol/L Chloride 107 (98-107) mmol/L Carbon Dioxide 25 (22-32) mmol/L BUN 17 (7-17) mg/dL Creatinine 0.67 (0.52-1.04) mg/dL Estimated GFR > 60 (>60) mL/min BUN/Creatinine Ratio 25.4 H (6-22) Glucose 123 H (80-110) mg/dL Calcium 9.4 (8.4-10.2) mg/dL Total Bilirubin 0.6 (0.2-1.3) mg/dL AST 31 (14-36) IU/L ALT 24 (<35) IU/L Alkaline Phosphatase 97 (38-126) U/L Total Creatine Kinase 158 H (30-135) U/L Troponin I < 0.012 (0.01-0.034) ng/mL Total Protein 7.9 (6.3-8.2) g/dL Albumin 4.6 (3.5-5.0) g/dL Globulin 3.3 (1.7-4.1) g/dL Albumin/Globulin Ratio 1.4 (1.0-2.8) Lipase 180 (23-300) U/L SARS-CoV-2 (PCR) Negative (Negative) Influenza A (RT-PCR) Flu a negative (NEGATIVE) Influenza B (RT-PCR) Flu b negative (NEGATIVE) RSV (PCR) Negative (Negative) Imaging Data Chest x-ray: Radiologist's Impression: PROCEDURE: XR CHEST 1V INDICATIONS: Chest pain TECHNIQUE: One view of the chest was acquired. COMPARISON: None. FINDINGS: Surgical changes and devices: None. Lungs and pleura: Lungs are clear. No pleural effusions or pneumothorax. Mediastinum: Mediastinal contours appear normal. Heart size is normal. Bones and chest wall: No suspicious bony lesions. Overlying soft tissues appear unremarkable. IMPRESSION: No acute pulmonary process. ECG Data Attestation: I personally reviewed and interpreted this ECG as follows: Interpretation: Sinus rhythm Ventricular rate is 74 Normal axis Normal QRS Normal QTC No ST T wave changes MDM Narrative Medical decision making narrative: Patient has had a CT scan within the past several days. He was able to review this and it showed no signs of intracranial hemorrhage. Blood pressure somewhat elevated but this did improve with treatment here in the ER. She states her headache has improved somewhat as well. She was afebrile. No trauma. No vision changes. No discomfort with palpation of the temporal arteries. No other neurologic symptoms. Low suspicion for CVA. Will send home with Marina. Advised that she follow-up with her primary doctor and she has an appointment scheduled with the office of the end of this week. She was given return precautions. She expressed understanding and agreement. Discharge Plan Departure Patient Disposition: Home Clinical Impression: Headache, HTN (hypertension) Instructions: DI for Headache Activity Restrictions/Additional Instructions: Recommend that you continue to take all of your medications as directed. I also recommend that you keep your follow-up appointment with your primary doctor later this week. Return to the emergency department for new symptoms. Prescriptions: New jssbmrdnko-lkphkcnaeevdk-eudm [Fioricet] 50-300-40 mg capsule 1 cap PO Q4-6H PRN (Reason: pain) Qty: 20 0RF No Action lisinopril 20 mg tablet 40 mg PO QPM sertraline 100 mg tablet 100 mg PO DAILY Patient Comments: TK 1 T PO QD gabapentin 300 mg capsule 1,200 mg PO QPM Patient Comments: TK 1 C PO QPM Retin-A Micro Pump 0.06 % gel with pump 1 applic TOPICAL DIRECTED magnesium oxide 400 mg magnesium Tablet 400 mg PO QPM Calcium Jsa-Ocd-Tbht 2 tab PO QPM amlodipine 5 mg Tablet 5 mg PO DAILY metformin 500 mg Tablet 500 mg PO DAILY alendronate [Fosamax] 70 mg Tablet 70 mg PO QWEEK levothyroxine 88 mcg Capsule 88 mcg PO BEDTIME aspirin [Aspirin Childrens] 81 mg Tablet,Chewable 81 mg PO DAILY docusate sodium [DOK] 100 mg Capsule 100 mg PO BID PRN (Reason: constipation) Qty: 30 0RF hydrocodone-acetaminophen 5-325 mg Tablet 1 tab PO Q4HR PRN (Reason: Pain, Moderate (4-6)) Qty: 20 0RF hydroxyzine pamoate 25 mg Capsule 25 mg PO Q4HR PRN (Reason: spasms) Qty: 20 0RF Referrals: Luann Major PA-C [Primary Care Provider] - Stand Alone Forms: Patient Portal/API
[2023-12-28 14:59] LABS: Influenza A - CEPHEID Flu A NEGATIVE (NEGATIVE); Influenza B - CEPHEID Flu B NEGATIVE (NEGATIVE); Respiratory Syncytial Virus Negative (Negative)
[2023-12-28 15:00] LABS: COVID-19 CEPHEID 4-PLEX PCR Negative (Negative)
--- NOTE | 2023-12-28 15:02 | EKG_ITS ---
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
[2023-12-28] MEDS: KETOROLAC 30 MG/ML VIAL 15 MG IV (15:14)
[2023-12-28] MEDS: ACETAMINOPHEN IV 1,000 MG/100 ML VIAL 400 MG IV (15:14)
[2023-12-28] MEDS: BUTALB/APAP/CAFFEINE 50/325/40 TABLET 1 EACH PO (16:29)
== END 2023-12-28 16:37 | disposition home or self-care (01) ==
PROVIDERS: Emergency Provider Emergency Medicine; PCP Physician Assistant
DX: I10 Essential (primary) hypertension (principal); R51.9 Headache, unspecified; R07.9 Chest pain, unspecified; Z11.52 Encounter for screening for COVID-19; Z79.899 Other long term (current) drug therapy
CPT/HCPCS: 0241U; 36415; 71045; 80053; 82550; 83690; 84484; 85025; 93005; 96365; 96375; 99284; J0136; J1885

== ENCOUNTER 2024-11-11 21:30 | Emergency (ER) | payer MEDICARE, OTHER, SELFPAY ==
[2019-12-15 20:10] VITALS: BMI 27.2
[2024-11-11 21:43] VITALS: BP 150/84; PULSE 76; RESP 17; TEMP 36.5; O2SAT 95; BMI 29.7
[2024-11-12 01:31] VITALS: PULSE 83; O2SAT 92
[2024-11-12 01:33] VITALS: BP 141/80; PULSE 77; O2SAT 96
--- NOTE | 2024-11-12 01:34 | ED.SKABFB ---
HPI - Skin/Abscess/Foreign Bdy General Chief complaint: Skin/Abscess/Foreign Body Stated complaint: R Leg Pain Time Seen by Provider: 11/12/24 01:34 Source: patient Mode of arrival: Ambulatory History of Present Illness HPI narrative: 69-year-old female without history of diabetes, reports scratched of the right lateral aspect of her foreleg about 3 weeks ago, increasing redness of the last couple of weeks, some drainage today. She has not sought care with her regular primary care provider. She is not taking oral antibiotics. No other areas of skin changes. Some swelling to the foot. Related Data Home Medications ?Medication ?Instructions ?Recorded ?Confirmed Calcium Qjs-Bdt-Jliu 2 tab PO QPM 12/17/18 12/15/19 gabapentin 300 mg capsule 1,200 mg PO QPM 12/17/18 12/15/19 lisinopril 20 mg tablet 40 mg PO QPM 12/17/18 12/15/19 magnesium oxide 400 mg PO QPM 12/17/18 12/15/19 sertraline 100 mg tablet 100 mg PO DAILY 12/17/18 12/15/19 tretinoin microspheres 0.06 % 1 applic topical DIRECTED 12/17/18 12/15/19 topical gel with pump (Retin-A Micro Pump) alendronate 70 mg tablet (Fosamax) 70 mg PO QWEEK 11/25/19 12/15/19 amlodipine 5 mg tablet 5 mg PO DAILY 11/25/19 12/15/19 levothyroxine 88 mcg capsule 88 mcg PO BEDTIME 11/25/19 12/15/19 metformin 500 mg tablet 500 mg PO DAILY 11/25/19 12/15/19 aspirin 81 mg chewable tablet 81 mg PO DAILY 11/29/19 12/15/19 (Aspirin Childrens) Previous Rx's ?Medication ?Instructions ?Recorded docusate sodium 100 mg capsule 100 mg PO BID PRN constipation #30 11/30/19 (DOK) caps hydrocodone 5 mg-acetaminophen 325 1 tab PO Q4HR PRN Pain, Moderate 11/30/19 mg tablet (4-6) #20 tabs hydroxyzine pamoate 25 mg capsule 25 mg PO Q4HR PRN spasms #20 caps 11/30/19 atsoqncsme-fgiljutscvlyc-zcxhzqpv 1 cap PO Q4-6H PRN pain #20 caps 12/28/23 50 mg-300 mg-40 mg capsule (Fioricet) cephalexin 500 mg capsule 500 mg PO QID 7 days #28 caps 11/12/24 doxycycline hyclate 100 mg capsule 100 mg PO BID #14 caps 11/12/24 Allergies Allergy/AdvReac Type Severity Reaction Status Date / Time erythromycin base Allergy Verified 12/15/19 14:57 Patient History Medical History Close exposure to COVID-19 virus Pre-diabetes Non-pressure ulcer of lower extremity (2018) Anxiety Peripheral neuropathy Sciatica Poor balance Spinal stenosis Arthritis Back pain Hypothyroid Surgical History (Updated 12/14/19 @ 13:55 by Christina Gates RN) Hx of discectomy (11/29/19) Hx of lumbar discectomy History of cholecystectomy Social History marital status: unknown household members: spouse Smoking Status: Never smoker alcohol intake: never Smoking Status: Never smoker alcohol intake frequency: holidays/special occasions only Alcohol type: wine Exam Narrative Exam Narrative: GENERAL: Well-developed patient, in mild distress. HEAD: Atraumatic. Normocephalic. EYES: Pupils equal round and reactive. Extraocular motions intact. No scleral icterus. No injection or drainage. ENT: Nose without bleeding, purulent drainage. Throat without erythema, tonsillar hypertrophy or exudate. Airway patent. NECK: Trachea midline. Non tender CARDIOVASCULAR: Regular rate and rhythm without murmurs, gallops, or rubs. RESPIRATORY: Clear to auscultation. Breath sounds equal bilaterally. No wheezes, rales, or rhonchi. GASTROINTESTINAL: Abdomen soft, non-tender, nondistended. EXTREMITIES: Right distal lateral foreleg with erythema proximally 4-5 cm, central small eschar, no expressible fluid, no crepitance. BACK: Nontender without deformity or crepitance. No flank tenderness. NEURO: AOx3. Motor functions grossly nonfocal. SKIN: No rash or erythema of visible areas Initial Vital Signs Initial Vital Signs: Vital Signs Temperature 97.7 F 11/11/24 21:43 Pulse Rate 76 11/11/24 21:43 Respiratory Rate 17 11/11/24 21:43 Blood Pressure 150/84 H 11/11/24 21:43 Pulse Oximetry 95 11/11/24 21:43 Oxygen Delivery Method Room Air 11/11/24 21:43 Course Orders Ordered: Discontinued Medications Cephalexin HCl (Cephalexin 250 Mg Capsule) 500 mg PO NOW ONE Stop: 11/12/24 01:57 Last Admin: 11/12/24 02:04 Dose: 500 mg Documented By: Doxycycline Hyclate (Doxycycline Hyclate 100 Mg Tablet) 100 mg PO NOW ONE Stop: 11/12/24 01:57 Last Admin: 11/12/24 02:04 Dose: 100 mg Documented By: Vital Signs Vital signs: Vital Signs - 8 hr 11/11/24 21:43 11/12/24 01:31 11/12/24 01:33 Temperature 97.7 F Pulse Rate 76 83 77 Respiratory Rate 17 Blood Pressure 150/84 H Pulse Oximetry 95 92 96 Oxygen Delivery Method Room Air Room Air 11/12/24 01:33 11/12/24 01:57 11/12/24 02:00 Temperature Pulse Rate 65 Respiratory Rate Blood Pressure 141/80 H 125/70 Pulse Oximetry 94 Oxygen Delivery Method 11/12/24 02:01 Temperature Pulse Rate 64 Respiratory Rate Blood Pressure Pulse Oximetry 95 Oxygen Delivery Method Room Air MDM - Skin/Abscess/Foreign Bdy MDM Narrative Medical decision making narrative: 69-year-old female with scratched to the right lateral aspect foreleg, increasing redness left last 2 weeks, some drainage today reported. She has not been taking any antibiotics. First visit for this ongoing problem. Afebrile, sirs screen negative. Examination consistent with cellulitis proximally 4-5 cm in diameter, central eschar, no expressible fluid or crepitance. Trial of oral antibiotics for now. Given dose of doxycycline cephalexin, prescriptions for 7 day course each antibiotic sent to her pharmacy. Advised wound check with the regular doctor [facility]Thursday. Return precautions discussed. Discharge Plan Departure Patient Disposition: Home Clinical Impression: Cellulitis of right leg Instructions: DI for Cellulitis -- Adult Activity Restrictions/Additional Instructions: Initial scratch to the right distal lateral foreleg, increasing redness over the last 2-3 weeks, no antibiotics so far tried. No fever on triage. Area of redness redness, no gross crepitance or fluctuance, recently draining. No expressible fluid. We will start antibiotics for infection. Initial doses of oral cephalexin and oral doxycycline given in the emergency department, with prescription for further 7 day course of each. Advised wound recheck with your regular provider on Thursday in clinic. Return earlier to this/nearest emergency department for any change worsening symptoms or any concerns prior. Prescriptions: New doxycycline hyclate 100 mg capsule 100 mg PO BID Qty: 14 0RF cephalexin 500 mg capsule 500 mg PO QID 7 Days Qty: 28 0RF No Action lisinopril 20 mg tablet 40 mg PO QPM sertraline 100 mg tablet 100 mg PO DAILY Patient Comments: TK 1 T PO QD gabapentin 300 mg capsule 1,200 mg PO QPM Patient Comments: TK 1 C PO QPM Retin-A Micro Pump 0.06 % gel with pump 1 applic TOPICAL DIRECTED magnesium oxide 400 mg magnesium Tablet 400 mg PO QPM Calcium Rko-Wlq-Vlwh 2 tab PO QPM amlodipine 5 mg Tablet 5 mg PO DAILY metformin 500 mg Tablet 500 mg PO DAILY alendronate [Fosamax] 70 mg Tablet 70 mg PO QWEEK levothyroxine 88 mcg Capsule 88 mcg PO BEDTIME aspirin [Aspirin Childrens] 81 mg Tablet,Chewable 81 mg PO DAILY docusate sodium [DOK] 100 mg Capsule 100 mg PO BID PRN (Reason: constipation) Qty: 30 0RF hydrocodone-acetaminophen 5-325 mg Tablet 1 tab PO Q4HR PRN (Reason: Pain, Moderate (4-6)) Qty: 20 0RF hydroxyzine pamoate 25 mg Capsule 25 mg PO Q4HR PRN (Reason: spasms) Qty: 20 0RF ngbxeiabgg-pwpisvunicbeq-bvte [Fioricet] 50-300-40 mg capsule 1 cap PO Q4-6H PRN (Reason: pain) Qty: 20 0RF Stand Alone Forms: Patient Portal/API
[2024-11-12 01:57] VITALS: PULSE 65; O2SAT 94
[2024-11-12 02:00] VITALS: BP 125/70
[2024-11-12 02:01] VITALS: PULSE 64; O2SAT 95
[2024-11-12] MEDS: DOXYCYCLINE HYCLATE 100 MG TABLET PO (02:04)
== END 2024-11-12 02:07 | disposition home or self-care (01) ==
PROVIDERS: Emergency Provider Emergency Medicine
DX: L03.115 Cellulitis of right lower limb (principal)
CPT/HCPCS: 99283

== ENCOUNTER 2024-11-16 19:35 | Emergency (ER) | payer MEDICARE, OTHER, SELFPAY ==
[2019-12-15 20:10] VITALS: BMI 27.2
[2024-11-16 19:44] VITALS: BP 146/79; PULSE 69; RESP 17; TEMP 36.6; O2SAT 94; BMI 29.6
--- NOTE | 2024-11-16 20:04 | ED.SKABFB ---
HPI - Skin/Abscess/Foreign Bdy General Chief complaint: Skin/Abscess/Foreign Body Stated complaint: Facial & all Over Burning Pain & Itchy Time Seen by Provider: 11/16/24 20:01 History of Present Illness HPI narrative: 69-year-old female currently being treated for right leg cellulitis on doxycycline and cephalexin since last Thursday presents with rash to face and numbness tingling down the fingertips and lips but no difficulty swallowing speaking, breathing, advised by PCP office to 50 mg of Benadryl prior to arrival here. Patient feels much better still at this time but still has mild rash to the face and numbness tingling in the fingertips. Other than what is stated 14 point review of system is negative. Related Data Home Medications ?Medication ?Instructions ?Recorded ?Confirmed Calcium Jzx-Jht-Boof 2 tab PO QPM 12/17/18 12/15/19 gabapentin 300 mg capsule 1,200 mg PO QPM 12/17/18 12/15/19 lisinopril 20 mg tablet 40 mg PO QPM 12/17/18 12/15/19 magnesium oxide 400 mg PO QPM 12/17/18 12/15/19 sertraline 100 mg tablet 100 mg PO DAILY 12/17/18 12/15/19 tretinoin microspheres 0.06 % 1 applic topical DIRECTED 12/17/18 12/15/19 topical gel with pump (Retin-A Micro Pump) alendronate 70 mg tablet (Fosamax) 70 mg PO QWEEK 11/25/19 12/15/19 amlodipine 5 mg tablet 5 mg PO DAILY 11/25/19 12/15/19 levothyroxine 88 mcg capsule 88 mcg PO BEDTIME 11/25/19 12/15/19 metformin 500 mg tablet 500 mg PO DAILY 11/25/19 12/15/19 aspirin 81 mg chewable tablet 81 mg PO DAILY 11/29/19 12/15/19 (Aspirin Childrens) Previous Rx's ?Medication ?Instructions ?Recorded docusate sodium 100 mg capsule 100 mg PO BID PRN constipation #30 11/30/19 (DOK) caps hydrocodone 5 mg-acetaminophen 325 1 tab PO Q4HR PRN Pain, Moderate 11/30/19 mg tablet (4-6) #20 tabs hydroxyzine pamoate 25 mg capsule 25 mg PO Q4HR PRN spasms #20 caps 11/30/19 scxwdwtevy-tbhelqtkpaeua-ajcklzsp 1 cap PO Q4-6H PRN pain #20 caps 12/28/23 50 mg-300 mg-40 mg capsule (Fioricet) cephalexin 500 mg capsule 500 mg PO QID 7 days #28 caps 11/12/24 doxycycline hyclate 100 mg capsule 100 mg PO BID #14 caps 11/12/24 famotidine 20 mg tablet (Pepcid) 20 mg PO BID #10 tabs 11/17/24 prednisone 20 mg tablet 40 mg (2 x 20 mg) PO DAILY #5 tabs 11/17/24 Allergies Allergy/AdvReac Type Severity Reaction Status Date / Time erythromycin base Allergy Verified 12/15/19 14:57 Review of Systems Review of Systems ROS Unobtainable: All systems reviewed & are unremarkable except as noted in HPI and below Patient History Medical History Close exposure to COVID-19 virus Pre-diabetes Non-pressure ulcer of lower extremity (2018) Anxiety Peripheral neuropathy Sciatica Poor balance Spinal stenosis Arthritis Back pain Hypothyroid Surgical History (Updated 12/14/19 @ 13:55 by Christina Gates RN) Hx of discectomy (11/29/19) Hx of lumbar discectomy History of cholecystectomy Social History marital status: unknown household members: spouse alcohol intake: never Smoking Status: Former smoker alcohol intake frequency: holidays/special occasions only Alcohol type: wine Exam Narrative Exam Narrative: GENERAL: 69 year old patient appears stated age. Well-developed patient, in mild distress. HEAD: Atraumatic. Normocephalic. EYES: Pupils equal round and reactive. Extraocular motions intact. No scleral icterus. No injection or drainage. ENT: Nose without bleeding, purulent drainage. Throat without erythema, tonsillar hypertrophy or exudate. Airway patent. NECK: Trachea midline. Non tender CARDIOVASCULAR: Regular rate and rhythm without murmurs, gallops, or rubs. RESPIRATORY: Clear to auscultation. Breath sounds equal bilaterally. No wheezes, rales, or rhonchi. GASTROINTESTINAL: Abdomen soft, non-tender, nondistended. EXTREMITIES: No edema or joint tenderness. BACK: Nontender without deformity or crepitance. No flank tenderness. NEURO: AOx3. SKIN: Right distal lateral leg central small eschar no expressible fluid no crepitance no streaking seen 4-5 cm, motor sensory intact +2 DP +2 PT cap refill less than 2 seconds Initial Vital Signs Initial Vital Signs: Vital Signs Temperature 98 F 11/16/24 19:44 Pulse Rate 69 11/16/24 19:44 Respiratory Rate 17 11/16/24 19:44 Blood Pressure 146/79 H 11/16/24 19:44 Pulse Oximetry 94 11/16/24 19:44 Oxygen Delivery Method Room Air 11/16/24 19:44 Course Orders Ordered: ED Orders 11/16/24 20:25 CBC Auto Diff [Complete Blood Count AUTO DIFF] Stat CMP [Comprehensive Metabolic Panel] Stat Vital Signs Vital signs: Vital Signs - 8 hr 11/16/24 19:44 Temperature 98 F Pulse Rate 69 Respiratory Rate 17 Blood Pressure 146/79 H Pulse Oximetry 94 Oxygen Delivery Method Room Air MDM - Skin/Abscess/Foreign Bdy Lab Data 11/16/24 20:25 11/16/24 20:25 Labs: Lab Results 11/16/24 Range/Units 20:25 WBC 6.8 (4.5-11.0) X10^3/uL RBC 4.57 (4.0-5.2) X10^6/uL Hgb 13.9 (12.0-16.0) g/dL Hct 41.4 (36-46) % MCV 90.7 (80-100) fL MCH 30.5 (26-34) PG MCHC 33.7 (30-36) % RDW 13.9 (11.6-14.8) % Plt Count 291 (150-400) X10^3/uL Neut % (Auto) 55.2 (50-75) % Lymph % (Auto) 32.3 (25-40) % Jewell % (Auto) 7.1 (3-14) % Eos % (Auto) 4.0 (2-4) % Baso % (Auto) 1.4 (0-2) % Neut # (Auto) 3700 (8500-4674) /uL Lymph # (Auto) 2200 (7939-7297) /uL Jewell # (Auto) 500 (0-900) /uL Eos # (Auto) 300 (0-450) /uL Baso # (Auto) 100 (0-100) /uL Sodium 140 (137-145) mmol/L Potassium 4.0 (3.4-5.1) mmol/L Chloride 103 (98-107) mmol/L Carbon Dioxide 23 (22-32) mmol/L BUN 20 H (7-17) mg/dL Creatinine 0.71 (0.52-1.04) mg/dL Estimated GFR > 60 (>60) mL/min BUN/Creatinine Ratio 28.2 H (6-22) Glucose 95 (70-99) mg/dL Calcium 9.4 (8.4-10.2) mg/dL Total Bilirubin 0.6 (0.2-1.3) mg/dL AST 37 H (14-36) IU/L ALT 24 (<35) IU/L Alkaline Phosphatase 116 (38-126) U/L Total Protein 8.9 H (6.3-8.2) g/dL Albumin 4.9 (3.5-5.0) g/dL Globulin 4.0 (1.7-4.1) g/dL Albumin/Globulin Ratio 1.2 (1.0-2.8) MDM Narrative Medical decision making narrative: Vital signs, nurse triage note, medication list, previous ER visits and all imaging studies reviewed. Patient given prednisone and Pepcid here and will be discharged on prednisone and Pepcid for 5 days course. Advised not to take tetracycline well under sun exposure and to continue Keflex at this time. Differential diagnosis allergic reaction, tetracycline side-effect with sun exposure. Discharge Plan Departure Patient Disposition: Home Clinical Impression: Cellulitis of right leg Allergic reaction Qualifiers: Encounter type: initial encounter Qualified Code(s): T78.40XA - Allergy, unspecified, initial encounter Instructions: DI for Cellulitis -- Adult Activity Restrictions/Additional Instructions: Return with new or worsening symptoms. Take medicines as directed. Continue on cephalexin. Avoid taking doxycycline while under sun exposure. Follow up PCP in 1 week for recheck. Prescriptions: New prednisone 20 mg tablet 40 mg PO DAILY Qty: 5 0RF famotidine [Pepcid] 20 mg tablet 20 mg PO BID Qty: 10 0RF No Action lisinopril 20 mg tablet 40 mg PO QPM sertraline 100 mg tablet 100 mg PO DAILY Patient Comments: TK 1 T PO QD gabapentin 300 mg capsule 1,200 mg PO QPM Patient Comments: TK 1 C PO QPM Retin-A Micro Pump 0.06 % gel with pump 1 applic TOPICAL DIRECTED magnesium oxide 400 mg magnesium Tablet 400 mg PO QPM Calcium Bsi-Xhk-Mizx 2 tab PO QPM amlodipine 5 mg Tablet 5 mg PO DAILY metformin 500 mg Tablet 500 mg PO DAILY alendronate [Fosamax] 70 mg Tablet 70 mg PO QWEEK levothyroxine 88 mcg Capsule 88 mcg PO BEDTIME aspirin [Aspirin Childrens] 81 mg Tablet,Chewable 81 mg PO DAILY docusate sodium [DOK] 100 mg Capsule 100 mg PO BID PRN (Reason: constipation) Qty: 30 0RF hydrocodone-acetaminophen 5-325 mg Tablet 1 tab PO Q4HR PRN (Reason: Pain, Moderate (4-6)) Qty: 20 0RF hydroxyzine pamoate 25 mg Capsule 25 mg PO Q4HR PRN (Reason: spasms) Qty: 20 0RF fjuahlupof-npvyhfxljcijt-ehij [Fioricet] 50-300-40 mg capsule 1 cap PO Q4-6H PRN (Reason: pain) Qty: 20 0RF doxycycline hyclate 100 mg capsule 100 mg PO BID Qty: 14 0RF cephalexin 500 mg capsule 500 mg PO QID 7 Days Qty: 28 0RF Stand Alone Forms: Patient Portal/API
[2024-11-16 21:02] LABS: Add Manual Diff / Slide Review NO; Hematocrit 41.4 % (36-46); Hemoglobin 13.9 g/dL (12.0-16.0); Lymphocytes Absolute Auto 2200 /uL (1100-4500); Mean Corpuscular HGB Conc 33.7 % (30-36); Mean Corpuscular Hemoglobin 30.5 PG (26-34); Mean Corpuscular Volume 90.7 fL (80-100); Platelet Count 291 X10^3/uL (150-400)
[2024-11-16 21:14] LABS: Alanine Aminotransferase 24 IU/L (<35); Albumin 4.9 g/dL (3.5-5.0); Albumin Globulin Ratio 1.2 (1.0-2.8); Alkaline Phosphatase 116 U/L (38-126); Blood Urea Nitrogen 20 mg/dL (7-17); Calcium 9.4 mg/dL (8.4-10.2); Carbon Dioxide 23 mmol/L (22-32); Chloride 103 mmol/L (98-107); Estimated Glomerular Filt Rate > 60 mL/min (>60); Globulin 4.0 g/dL (1.7-4.1); Glucose 95 mg/dL (70-99); HEMOLYSIS < 15 (0-50); Potassium 4.0 mmol/L (3.4-5.1); Sodium 140 mmol/L (137-145); Total Protein 8.9 g/dL (6.3-8.2)
[2024-11-17] MEDS: FAMOTIDINE 20 MG TABLET PO (02:00)
--- NOTE | 2024-11-17 02:19 | PC.NURSE ---
Patient seen recently for this right lower leg wound. However, notable improvement from previous visit.
== END 2024-11-17 02:08 | disposition home or self-care (01) ==
PROVIDERS: Emergency Provider Family Medicine
DX: L03.115 Cellulitis of right lower limb (principal); T78.40XA Allergy, unspecified, initial encounter
CPT/HCPCS: 36415; 80053; 85025; 99283; A9270

== ENCOUNTER 2025-02-04 15:06 | Emergency (ER) | payer MEDICARE, OTHER, SELFPAY ==
[2019-12-15 20:10] VITALS: BMI 27.2
[2025-02-04 15:20] VITALS: BP 151/80; PULSE 76; RESP 17; TEMP 36.1; O2SAT 96; BMI 29.4
--- NOTE | 2025-02-04 15:26 | DI.RAD.S_ITS ---
PROCEDURE: XR SHOULDER LT MIN 2V INDICATIONS: 10 days aura shoulder pain TECHNIQUE: 3 views of the shoulder were acquired. COMPARISON: None. FINDINGS: Bones: No fractures or dislocations. No suspicious bony lesions. Visualized ribs appear intact. Soft tissues: No suspicious soft tissue calcifications. IMPRESSION: Degenerative acromioclavicular and glenohumeral changes. No fracture or subluxation. Approved by: Romero Salazar M.D. on 02/04/2025 at 15:14
--- NOTE | 2025-02-04 15:26 | DI.RAD.S_ITS ---
PROCEDURE: XR SHOULDER RT MIN 2V INDICATIONS: 10 days aura shoulder pain TECHNIQUE: 3 views of the shoulder were acquired. COMPARISON: None. FINDINGS: Bones: No fractures or dislocations. No suspicious bony lesions. Visualized ribs appear intact. Soft tissues: No suspicious soft tissue calcifications. IMPRESSION: Degenerative glenohumeral arthritic changes subchondral cysts. No humeral head flattening. Approved by: Romero Salazar M.D. on 02/04/2025 at 15:07
--- NOTE | 2025-02-04 16:56 | PC.NURSE ---
patient experiencing pain radiating up neck and head and down arms after a fall 8 days ago in shower. provider aware of pt request for imaging of neck as well as pain medications
--- NOTE | 2025-02-04 18:01 | ED.EXTPRO ---
HPI - Extremity Problem General Chief complaint: Extremity Problem,Nontraumatic Stated complaint: Shoulder pn rad into arms both sides Time Seen by Provider: 02/04/25 17:57 Source: patient Mode of arrival: Ambulatory History of Present Illness HPI Narrative: 69-year-old female history of hypertension, back pain status post surgery x3, history of peripheral neuropathy presents with bilateral shoulder pain and neck pain and headache after falling in the shower about a week and a half ago when all her symptoms started. She has taken Tylenol without significant relief of her symptoms. Patient denies loss of consciousness, chest pain shortness breath or worsening back pain other than her baseline bowel or bladder incontinence abdominal pain nausea vomiting vision changes or worsening weakness in the arms or legs. She walks with a walker. She is currently being referred to rheumatology for inflammatory markers that are elevated, and she does also see a neurologist at this time. Other than what is stated 14 point review of system is negative. Related Data Home Medications ?Medication ?Instructions ?Recorded ?Confirmed Calcium Hrr-Jim-Sytq 2 tab PO QPM 12/17/18 12/15/19 gabapentin 300 mg capsule 1,200 mg PO QPM 12/17/18 12/15/19 lisinopril 20 mg tablet 40 mg PO QPM 12/17/18 12/15/19 magnesium oxide 400 mg PO QPM 12/17/18 12/15/19 sertraline 100 mg tablet 100 mg PO DAILY 12/17/18 12/15/19 tretinoin microspheres 0.06 % 1 applic topical DIRECTED 12/17/18 12/15/19 topical gel with pump (Retin-A Micro Pump) alendronate 70 mg tablet (Fosamax) 70 mg PO QWEEK 11/25/19 12/15/19 amlodipine 5 mg tablet 5 mg PO DAILY 11/25/19 12/15/19 levothyroxine 88 mcg capsule 88 mcg PO BEDTIME 11/25/19 12/15/19 metformin 500 mg tablet 500 mg PO DAILY 11/25/19 12/15/19 aspirin 81 mg chewable tablet 81 mg PO DAILY 11/29/19 12/15/19 (Aspirin Childrens) Previous Rx's ?Medication ?Instructions ?Recorded docusate sodium 100 mg capsule 100 mg PO BID PRN constipation #30 11/30/19 (DOK) caps hydrocodone 5 mg-acetaminophen 325 1 tab PO Q4HR PRN Pain, Moderate 11/30/19 mg tablet (4-6) #20 tabs hydroxyzine pamoate 25 mg capsule 25 mg PO Q4HR PRN spasms #20 caps 11/30/19 iypubbtwyr-ocqpcbkyrtgzb-lljrzukp 1 cap PO Q4-6H PRN pain #20 caps 12/28/23 50 mg-300 mg-40 mg capsule (Fioricet) doxycycline hyclate 100 mg capsule 100 mg PO BID #14 caps 11/12/24 famotidine 20 mg tablet (Pepcid) 20 mg PO BID #10 tabs 11/17/24 prednisone 20 mg tablet 40 mg (2 x 20 mg) PO DAILY #5 tabs 11/17/24 Allergies Allergy/AdvReac Type Severity Reaction Status Date / Time erythromycin base Allergy Verified 02/04/25 15:20 Review of Systems Review of Systems ROS Unobtainable: All systems reviewed & are unremarkable except as noted in HPI and below Patient History Medical History Close exposure to COVID-19 virus Pre-diabetes Non-pressure ulcer of lower extremity (2018) Anxiety Peripheral neuropathy Sciatica Poor balance Spinal stenosis Arthritis Back pain Hypothyroid Surgical History (Updated 12/14/19 @ 13:55 by Christina Gates RN) Hx of discectomy (11/29/19) Hx of lumbar discectomy History of cholecystectomy Social History marital status: unknown household members: spouse Smoking Status: Never smoker alcohol intake: never Smoking Status: Never smoker alcohol intake frequency: holidays/special occasions only Alcohol type: wine Exam Narrative Exam Narrative: GENERAL: [69] year old patient appears stated age. Well-developed patient, in mild distress. HEAD: Atraumatic. Normocephalic. EYES: Pupils equal round and reactive. Extraocular motions intact. No scleral icterus. No injection or drainage. ENT: Nose without bleeding, purulent drainage. Throat without erythema, tonsillar hypertrophy or exudate. Airway patent. NECK: Trachea midline. Non tender CARDIOVASCULAR: Regular rate and rhythm without murmurs, gallops, or rubs. RESPIRATORY: Clear to auscultation. Breath sounds equal bilaterally. No wheezes, rales, or rhonchi. GASTROINTESTINAL: Abdomen soft, non-tender, nondistended. EXTREMITIES: Bilateral Right and Left shoulder abduction adduction flexion extension to about 90? +2 radial pulse cap refill less than 2 seconds, C4-7 bilateral paracervical tenderness to palpation worse on the right but able to flex extend side bend rotate in all directions slowly BACK: Nontender without deformity or crepitance. No flank tenderness. NEURO: AOx3. GCS 15 nonfocal neuro exam spontaneously moving all her extremities slowly in pain in all directions SKIN: No rash or erythema of visible areas Initial Vital Signs Initial Vital Signs: Vital Signs Temperature 97.0 F L 02/04/25 15:20 Pulse Rate 76 02/04/25 15:20 Respiratory Rate 17 02/04/25 15:20 Blood Pressure 151/80 H 02/04/25 15:20 Pulse Oximetry 96 02/04/25 15:20 Oxygen Delivery Method Room Air 02/04/25 15:20 Course Orders Ordered: ED Orders 02/04/25 15:26 XR shoulder LT 2+ views Stat XR shoulder RT 2+ views Stat Vital Signs Vital signs: Vital Signs - 8 hr 02/04/25 15:20 Temperature 97.0 F L Pulse Rate 76 Respiratory Rate 17 Blood Pressure 151/80 H Pulse Oximetry 96 Oxygen Delivery Method Room Air MDM - Extremity (Nontraumatic) Imaging Data CT scan - head: Radiologist's Impression: [place] [address] CT Scan Report Signed Patient: Aretha Yates MR#: [id number] : 1955 Acct:[id number] Age/Sex: 69 / F Date of Service: 02/04/25 Loc: ED Accession Number: [id number] Procedure: CT head/brain wo con Ordering Provider: Krzysztof Baldwin D.O. PROCEDURE: CT HEAD/BRAIN WO CON INDICATIONS: pain trauma TECHNIQUE: Noncontrast 4.5 mm thick angled axial sections acquired from the foramen magnum to the vertex, with coronal and sagittal reformats. For radiation dose reduction, the following was used: automated exposure control, adjustment of mA and/or kV according to patient size. COMPARISON: None. FINDINGS: Image quality: Diagnostic CSF spaces: Basal cisterns are patent. Lateral ventricles are symmetric. Volume: Vascular calcifications. Periventricular white matter disease is commonly seen with chronic microangiopathy. Volume loss is present. These findings are mild Brain: No acute hemorrhage. No gross loss of alex-white differentiation. Craniofacial structures: No significant paranasal sinus opacity. IMPRESSION: No acute intracranial hemorrhage. CT - cervical spine: Radiologist's Impression: [place] [address] CT Scan Report Signed Patient: Aretha Yates MR#: [id number] : 1955 Acct:[id number] Age/Sex: 69 / F Date of Service: 02/04/25 Loc: ED Accession Number: [id number] Procedure: CT cervical spine wo con Ordering Provider: Krzysztof Baldwin D.O. PROCEDURE: CT CERVICAL SPINE WO CON INDICATIONS: pain trauma TECHNIQUE: Noncontrast 3 mm thick sections acquired from the skull base to the T4 level. Sagittal and coronal reformats were then constructed. For radiation dose reduction, the following was used: automated exposure control, adjustment of mA and/or kV according to patient size. COMPARISON: None. FINDINGS: Image quality: Diagnostic Bones: Moderate overall cervical spondylosis with multilevel facet arthropathy, disc space height loss and osteophytes. No displaced fracture or traumatic subluxation is seen. There is straightening of the normal cervical lordosis. Soft tissues: No apex pneumothorax. No significant paravertebral soft tissue abnormality. No significant prevertebral soft tissue swelling. IMPRESSION: No displaced fracture or traumatic subluxation. Moderate spondylosis. If there is high concern for further derangement, consider MRI evaluation. Extremity x-ray #1: Radiologist's Impression: [place] [address] XRay Report Signed Patient: Aretha Yates MR#: [id number] : 1955 Acct:[id number] Age/Sex: 69 / F Date of Service: 02/04/25 Loc: ED Accession Number: [id number] Procedure: XR shoulder LT 2+ views Ordering Provider: Sana Baer D.O. PROCEDURE: XR SHOULDER LT MIN 2V INDICATIONS: 10 days aura shoulder pain TECHNIQUE: 3 views of the shoulder were acquired. COMPARISON: None. FINDINGS: Bones: No fractures or dislocations. No suspicious bony lesions. Visualized ribs appear intact. Soft tissues: No suspicious soft tissue calcifications. IMPRESSION: Degenerative acromioclavicular and glenohumeral changes. No fracture or subluxation. Extremity x-ray #2: Radiologist's Impression: [address] [address] XRay Report Signed Patient: Aretha Yates MR#: [id number] : 1955 Acct:[id number] Age/Sex: 69 / F Date of Service: 02/04/25 Loc: ED Accession Number: [id number] Procedure: XR shoulder RT 2+ views Ordering Provider: Sana Baer D.O. PROCEDURE: XR SHOULDER RT MIN 2V INDICATIONS: 10 days aura shoulder pain TECHNIQUE: 3 views of the shoulder were acquired. COMPARISON: None. FINDINGS: Bones: No fractures or dislocations. No suspicious bony lesions. Visualized ribs appear intact. Soft tissues: No suspicious soft tissue calcifications. IMPRESSION: Degenerative glenohumeral arthritic changes subchondral cysts. No humeral head flattening. Chest x-ray: Radiologist's Impression: [address] [address] XRay Report Signed Patient: Aretha Yates MR#: [id number] : 1955 Acct:[id number] Age/Sex: 69 / F Date of Service: 02/04/25 Loc: ED Accession Number: [id number] Procedure: XR chest 2V Ordering Provider: Krzysztof Baldwin D.O. PROCEDURE: XR CHEST 2V INDICATIONS: trauma TECHNIQUE: 2 views of the chest were acquired. COMPARISON: [facility], , XR CHEST 1V, 12/28/2023, 13:49. FINDINGS AND IMPRESSION: Bibasilar linear opacities are seen possibly atelectasis or aspiration. No definite pneumothorax, pleural effusion or dense airspace disease. Unchanged mediastinal contours. Normal heart size. Degenerative osseous changes. If there is high concern for occult injury, consider cross-sectional imaging. MDM Narrative Medical decision making narrative: All lab work, vital signs, nurse triage note, medication list, previous ER visits, and all imaging reviewed. Chest x-ray shows bibasilar linear opacities are seen possibly atelectasis or aspiration. No definite pneumothorax pleural effusion or dense airspace disease. Unchanged mediastinal contours.. Normal heart size degenerative osseous changes. CT head showed no acute intracranial hemorrhage. Cervical spine showed no displaced fracture or traumatic subluxation. Moderate spondylosis. Bilateral shoulder x-ray showed degenerative glenohumeral arthritic changes subchondral cysts. No humeral head flattening. Patient given morphine and toradol IM here as hydrocodone she has at home and has not helped. Differential diagnosis fracture dislocation hemorrhage pneumothorax contusion. Discharge Plan Departure Patient Disposition: Home Clinical Impression: Headache, Neck and shoulder pain Instructions: DI for Headache Activity Restrictions/Additional Instructions: Return with new or worsening symptoms. Take your medicines as directed. Keep hydrated. Follow up PCP in 1-2 weeks if no improvement in symptoms. Prescriptions: No Action lisinopril 20 mg tablet 40 mg PO QPM sertraline 100 mg tablet 100 mg PO DAILY Patient Comments: TK 1 T PO QD gabapentin 300 mg capsule 1,200 mg PO QPM Patient Comments: TK 1 C PO QPM Retin-A Micro Pump 0.06 % gel with pump 1 applic TOPICAL DIRECTED magnesium oxide 400 mg magnesium Tablet 400 mg PO QPM Calcium Uoc-Msk-Jeso 2 tab PO QPM prednisone 20 mg tablet 40 mg PO DAILY Qty: 5 0RF famotidine [Pepcid] 20 mg tablet 20 mg PO BID Qty: 10 0RF amlodipine 5 mg Tablet 5 mg PO DAILY metformin 500 mg Tablet 500 mg PO DAILY alendronate [Fosamax] 70 mg Tablet 70 mg PO QWEEK levothyroxine 88 mcg Capsule 88 mcg PO BEDTIME aspirin [Aspirin Childrens] 81 mg Tablet,Chewable 81 mg PO DAILY docusate sodium [DOK] 100 mg Capsule 100 mg PO BID PRN (Reason: constipation) Qty: 30 0RF hydrocodone-acetaminophen 5-325 mg Tablet 1 tab PO Q4HR PRN (Reason: Pain, Moderate (4-6)) Qty: 20 0RF hydroxyzine pamoate 25 mg Capsule 25 mg PO Q4HR PRN (Reason: spasms) Qty: 20 0RF tagjvbtuzi-boknocqdvacqa-qlfn [Fioricet] 50-300-40 mg capsule 1 cap PO Q4-6H PRN (Reason: pain) Qty: 20 0RF doxycycline hyclate 100 mg capsule 100 mg PO BID Qty: 14 0RF Stand Alone Forms: Patient Portal/API
--- NOTE | 2025-02-04 18:31 | DI.CT.S_ITS ---
PROCEDURE: CT HEAD/BRAIN WO CON INDICATIONS: pain trauma TECHNIQUE: Noncontrast 4.5 mm thick angled axial sections acquired from the foramen magnum to the vertex, with coronal and sagittal reformats. For radiation dose reduction, the following was used: automated exposure control, adjustment of mA and/or kV according to patient size. COMPARISON: None. FINDINGS: Image quality: Diagnostic CSF spaces: Basal cisterns are patent. Lateral ventricles are symmetric. Volume: Vascular calcifications. Periventricular white matter disease is commonly seen with chronic microangiopathy. Volume loss is present. These findings are mild Brain: No acute hemorrhage. No gross loss of alex-white differentiation. Craniofacial structures: No significant paranasal sinus opacity. IMPRESSION: No acute intracranial hemorrhage. Dictated by: Sergio Hernandez M.D. on 02/04/2025 at 19:03 Approved by: Sergio Hernandez M.D. on 02/04/2025 at 19:04
--- NOTE | 2025-02-04 18:31 | DI.CT.S_ITS ---
PROCEDURE: CT CERVICAL SPINE WO CON INDICATIONS: pain trauma TECHNIQUE: Noncontrast 3 mm thick sections acquired from the skull base to the T4 level. Sagittal and coronal reformats were then constructed. For radiation dose reduction, the following was used: automated exposure control, adjustment of mA and/or kV according to patient size. COMPARISON: None. FINDINGS: Image quality: Diagnostic Bones: Moderate overall cervical spondylosis with multilevel facet arthropathy, disc space height loss and osteophytes. No displaced fracture or traumatic subluxation is seen. There is straightening of the normal cervical lordosis. Soft tissues: No apex pneumothorax. No significant paravertebral soft tissue abnormality. No significant prevertebral soft tissue swelling. IMPRESSION: No displaced fracture or traumatic subluxation. Moderate spondylosis. If there is high concern for further derangement, consider MRI evaluation. Dictated by: Sergio Hernandez M.D. on 02/04/2025 at 19:04 Approved by: Sergio Hernandez M.D. on 02/04/2025 at 19:06
--- NOTE | 2025-02-04 18:32 | DI.RAD.S_ITS ---
PROCEDURE: XR CHEST 2V INDICATIONS: trauma TECHNIQUE: 2 views of the chest were acquired. COMPARISON: Located Within [facility], CR, XR CHEST 1V, 12/28/2023, 13:49. FINDINGS AND IMPRESSION: Bibasilar linear opacities are seen possibly atelectasis or aspiration. No definite pneumothorax, pleural effusion or dense airspace disease. Unchanged mediastinal contours. Normal heart size. Degenerative osseous changes. If there is high concern for occult injury, consider cross-sectional imaging. Dictated by: eSrgio Hernandez M.D. on 02/04/2025 at 19:08 Approved by: Sergio Hernandez M.D. on 02/04/2025 at 19:09
[2025-02-04] MEDS: MORPHINE 4 MG/ML INJ IM (19:37)
[2025-02-04] MEDS: KETOROLAC 30 MG/ML VIAL IM (19:37)
[2025-02-04 19:45] VITALS: BP 146/78; PULSE 74; RESP 18; O2SAT 99
== END 2025-02-04 19:55 | disposition home or self-care (01) ==
PROVIDERS: Emergency Provider Family Medicine
DX: R51.9 Headache, unspecified (principal); M54.2 Cervicalgia; M25.512 Pain in left shoulder; M25.511 Pain in right shoulder; W19.XXXA Unspecified fall, initial encounter
CPT/HCPCS: 70450; 71046; 72125; 73030; 96372; 99283; 99284; J1885; J2272